=== PATIENT | female | born 1945 | race Caucasian/White ===

== ENCOUNTER → 2016-07-31 | Outpatient (CLI) | payer BC ==
[~2016-07-31] MED LIST: ASCO500C43 PO; ASPI81TA28 PO; CALC600T9 PO; HYDR0.5T PO; LISI-461 PO; MULT-190 PO; MULT-506 PO; OMEG10007 PO; OXYM0.0592 NAE; PRD/1 PO; VITA400C15 PO
== END | disposition home or self-care (01) ==
LOC: C.PATHSPEC 13:48
PROVIDERS: ATTEND Dermatology
DX: C44.91 Basal cell carcinoma of skin, unspecified (principal); L91.8 Other hypertrophic disorders of the skin

== ENCOUNTER → 2016-08-11 | Outpatient (CLI) | payer BC ==
--- NOTE | 2016-08-12 16:37 | MAMMOGRAPHY REPORT ---
BILATERAL DIGITAL SCREENING MAMMOGRAM TOMOSYNTHESIS WITH CAD: 08/11/2016 CLINICAL HISTORY: Routine screening examination. Personal history of right breast cancer status pos t treatment. TECHNIQUE: Breast tomosynthesis in addition to standard 2D mammography was performed. Current study was also evaluated with a Computer Aided Detection (CAD) system. COMPARISON: Comparison is made to exams dated: 08/09/2015 mammogram, 08/08/2014 mammogram, 06/28/2012 mammogram, 06/25/2011 mammogram, 06/24/2010 mammogram, and 06/20/2009 mammogram - [facility]. BREAST COMPOSITION: There are scattered areas of fibroglandular density in both breasts. FINDINGS: There is asymmetry of the size of the breasts, left greater than right, likely secondary t o previous treatment within the right breast. There is expected architectural distortion with surgi mary clips and skin irregularity in the 6:00 posterior right breast, at the site of prior lumpectomy. There are stable intramammary lymph nodes in each upper outer quadrant. Scattered benign coarse c alcifications and punctate microcalcifications. No new suspicious mass, architectural distortion or cluster of microcalcifications is seen. IMPRESSION: ACR BI-RADS CATEGORY 1: NEGATIVE There is no mammographic evidence of malignancy. A 1 year screening mammogram is recommended. The p atient will receive written notification of the results. Approximately 10% of breast cancers are not detected with mammography. A negative mammographic repor t should not delay biopsy if a clinically suggestive mass is present. Prisca Ellsworth M.D. ay/:08/12/2016 15:47:20 Research Coordinator: Laure JOHNSON(David)(Todd), [facility] letter sent: Normal 1/2 BI-RADS Code: ACR BI-RADS Category 1: Negative
== END | disposition home or self-care (01) ==
LOC: C.MAMM 09:49
PROVIDERS: ATTEND Family Medicine
DX: Z12.31 Encounter for screening mammogram for malignant neoplasm of breast (principal)

== ENCOUNTER → 2016-09-26 | Outpatient (CLI) | payer BC | END | disposition home or self-care (01) | LOC: C.LABBC 09:52 | PROVIDERS: ATTEND Nurse Practitioner Family | DX: N39.0 Urinary tract infection, site not specified (principal) ==

== ENCOUNTER → 2016-10-24 | Outpatient (CLI) | payer BC | END | disposition home or self-care (01) | LOC: C.LAB 09:24 | PROVIDERS: ATTEND Nurse Practitioner Family | DX: N39.0 Urinary tract infection, site not specified (principal) ==

== ENCOUNTER → 2016-12-22 | Day surgery (SDC) | payer BC ==
[2016-12-12 09:19] VITALS: Ht 149.9 cm; Wt 65.9 kg
[~2016-12-22] VITALS: Ht 149.9 cm; Wt 65.9 kg
[~2016-12-22] MED LIST changes: -ASCO500C43 PO; -HYDR0.5T PO; -PRD/1 PO; +SODIUM CHLORIDE 0.9% 500ML 500 ML IV ONE
--- NOTE | 2016-12-22 10:22 | Endo History and Physical ---
History & Physical Date of Service: Dec 22, 2016. Chief Complaint: Screening Referring Physician: Nadir Perez History of Present Illness 71 yo CF who presents for screening colonoscopy. Past Surgical History Hx Cardiac Surgery: No Hx Internal Defibrillator: No Hx Pacemaker: No Hx Abdominal Surgery: Yes (JORDI, HERNIA X 2) Hx of Implantable Prosthesis: No Hx Post-Op Nausea and Vomiting: No Hx Cancer Surgery: Yes (RT LUMPECTOMY) Hx Thoracic Surgery: No Hx Orthopedic: Yes (RT RCR, RT TIBIA FX REPAIR) Hx Urinary Tract Surgery: No Family History None Social History Smoking Status: Former Smoker Hx Substance Use: No Hx Alcohol Use: Yes (4 GLASSES OF WINE WEEKLY) Allergies Coded Allergies: Oxytocin (Verified Allergy, Unknown, extreme cramping, 12/22/16) Sulfa Antibiotics (Verified Allergy, Unknown, HIVES, 12/22/16) Current Medications Reported Home Medications Medications Dose Route/Sig Max Daily Dose Days Date Category Ocuvite Preservision (Multivitamins/Minerals) 1 Tab Tab 1 Tab PO QAM 12/12/16 Reported Nasal [place] (Oxymetazoline Hcl) 0.05 % Spr 1 [place] CONSTANCE DAILY PRN 12/12/16 Reported Calcium + D (Calcium Carbonate-Vitamin D) 1 Tab Tab 1 Tab PO HS 04/18/14 Reported [place]-3 (Fish Oil) 1 Ea Cap 1 Cap PO HS 04/18/14 Reported Aspirin Ec (Aspirin) 81 Mg Tab 81 Mg PO HS 04/18/14 Reported Vitamin E (va-Uhmbc-Uosdfzkfaf Acetate) 400 Inter.unit Cap 400 Inter.unit PO QAM 04/18/14 Reported Multivitamin (Multivitamins) Tab 1 Tab PO QAM 04/18/14 Reported Zestril (Lisinopril) 10 Mg Tab 10 Mg PO QAM 04/18/14 Reported Vital Signs Weight (Kilograms): 65.91 Height (Feet): 4 Height (Inches): 11 Date Time Temp Pulse Resp B/P (MAP) Pulse Ox O2 Delivery O2 Flow Rate FiO2 12/22/16 10:11 37.0 80 20 142/73 (96) 96 Room Air Physical Exam General Appearance: WD/WN, no apparent distress Respiratory/Chest: Auscultation: breath sounds normal Cardiovascular: Heart Auscultation: RRR Abdomen: Bowel Sounds: normal Inspection & Palpation: soft, non-distended, no tenderness, guarding & rebound Assessment and Plan Assessment: 71 yo CF who presents for screening colonoscopy. Plan: Proceed with colonoscopy.
--- NOTE | 2016-12-22 11:03 | GI REPORT ---
Procedure Date: 12/22/2016 10:35 AM Procedure: Colonoscopy Indications: Screening for colorectal malignant neoplasm Medicines: Monitored Anesthesia Care Complications: No immediate complications. Estimated Blood Loss: Estimated blood loss: none. Procedure: Pre-Anesthesia Assessment: - Prior to the procedure, a History and Physical was performed, and patient medications and allergies were reviewed. The patient's tolerance of previous anesthesia was also reviewed. The risks and benefits of the procedure and the sedation options and risks were discussed with the patient. All questions were answered, and informed consent was obtained. Prior Anticoagulants: The patient has taken aspirin, last dose was 2 days prior to procedure. ASA Grade Assessment: II - A patient with mild systemic disease. After reviewing the risks and benefits, the patient was deemed in satisfactory condition to undergo the procedure. After I obtained informed consent, the scope was passed under direct vision. Throughout the procedure, the patient's blood pressure, pulse, and oxygen saturations were monitored continuously. The scope was introduced through the anus and advanced to the terminal ileum. The colonoscopy was performed without difficulty. The patient tolerated the procedure well. The quality of the bowel preparation was good. The terminal ileum, ileocecal valve, appendiceal orifice, and rectum were photographed. Findings: A 5 mm polyp was found in the cecum. The polyp was sessile. The polyp was removed with a hot snare. Resection and retrieval were complete. Scattered small and large-mouthed diverticula were found in the entire colon. Non-bleeding internal hemorrhoids were found during retroflexion. The hemorrhoids were small. Impression: - One 5 mm polyp in the cecum, removed with a hot snare. Resected and retrieved. - Diverticulosis in the entire examined colon. - Non-bleeding internal hemorrhoids. Recommendation: - Resume previous diet. - Continue present medications. - Repeat colonoscopy for surveillance based on pathology results. - Return to primary care physician as previously scheduled. Andrea Gordon DO 12/22/2016 11:03:06 AM This report has been signed electronically. Note Initiated On: 12/22/2016 10:35 AM I attest to the content of the Intraoperative Record and orders documented therein, exceptions below
--- NOTE | 2016-12-22 11:14 | Discharge Instructions ---
Endoscopy Patient Instructions Date / Procedure(s) Performed Dec 22, 2016. Colonoscopy Allergy Information Coded Allergies: Oxytocin (Verified Allergy, Unknown, extreme cramping, 12/22/16) Sulfa Antibiotics (Verified Allergy, Unknown, HIVES, 12/22/16) Discharge Date / Findings Dec 22, 2016. Colon polyp Diverticulosis Internal hemorrhoids Medication Instructions Stopped Medication(s): Aspirin stopped 12/20/16 OK to resume all medications today as prescribed Medications Dose Route/Sig Max Daily Dose Days Date Category Ocuvite Preservision (Multivitamins/Minerals) 1 Tab Tab 1 Tab PO QAM 12/12/16 Reported Nasal [place] (Oxymetazoline Hcl) 0.05 % Spr 1 [place] CONSTANCE DAILY PRN 12/12/16 Reported Calcium + D (Calcium Carbonate-Vitamin D) 1 Tab Tab 1 Tab PO HS 04/18/14 Reported [place]-3 (Fish Oil) 1 Ea Cap 1 Cap PO HS 04/18/14 Reported Aspirin Ec (Aspirin) 81 Mg Tab 81 Mg PO HS 04/18/14 Reported Vitamin E (uc-Sqrmy-Oebbvaytiz Acetate) 400 Inter.unit Cap 400 Inter.unit PO QAM 04/18/14 Reported Multivitamin (Multivitamins) Tab 1 Tab PO QAM 04/18/14 Reported Zestril (Lisinopril) 10 Mg Tab 10 Mg PO QAM 04/18/14 Reported Provider Instructions Activity Restrictions - No exercising or heavy lifting for 24 hours. - Do not drink alcohol the day of the procedure. - Do not drive a car or operate machinery until the day after the procedure. - Do not make any important decisions or sign important papers in 24 hours after the procedure. Following Day: - Return to full activity which may include returning to work/school. Diet Start your diet with liquids and light foods (jello, soup, juice, toast). Then eat your usual diet if not nauseated. Treatment For Common After Affects For mild abdominal pain, bloating, or excessive gas: - Rest - Eat lightly - Lie on right side Follow-Up Information Follow-up with Nadir Perez as scheduled Anesthesia Information What You Should Know You have had a procedure that required some medicine to reduce anxiety and discomfort. This treatment is called moderate sedation. After receiving the treatment, you may be sleepy, but you will be able to breathe on your own. The effects of the treatment may last for several hours. Follow these instructions along with Activity/Diet recommendations noted above: * Do NOT do anything where dizziness or clumsiness would be dangerous. * Rest quietly at home today, then you can be up and about tomorrow. * Have a responsible person stay with you the rest of today. * You may have had an I.V. today. If so, you may take the dressing off later today. Recommendations Call your doctor if: * Trouble breathing * Continuous vomiting for more than 24 hours * Temperature above 101 degrees * Severe abdominal pain or bloating * Pain not relieved by pain medicine ordered * There is increased drainage or redness from any incision * A large amount of rectal bleeding greater than 2-3 tablespoons. (If you had a polyp/s removed or have hemorrhoids, a small amount of blood - from the rectum is to be expected.) * You have any unanswered questions or concerns. IN THE EVENT OF A SERIOUS EMERGENCY, GO TO THE NEAREST EMERGENCY ROOM Your discharge instructions were prepared by provider Andrea Gordon. Patient Instructions Signature Page Yoanna Cardona Patient (or Guardian) Signature/Date: I have read and understand the instructions given to me by my caregivers. Caregiver/RN/Doctor Signature/Date: The above-named patient and/or guardian has received patient instructions on this date. + Original Patient Signature Page (only) stays with chart. Please make copy for patient.
--- NOTE | 2016-12-22 11:26 | Anesthesiology Progress Note ---
Anesthesia Post Op Note Date & Time Dec 22, 2016 at 11:26 Vital Signs Pain Intensity: 0 Vital Signs Past 12 Hours Date Time Temp Pulse Resp B/P (MAP) Pulse Ox O2 Delivery O2 Flow Rate FiO2 12/22/16 11:18 63 20 95/59 (71) 97 Room Air 12/22/16 11:04 63 20 111/62 (78) 97 Room Air 12/22/16 10:11 37.0 80 20 142/73 (96) 96 Room Air Notes Mental Status: alert / awake / arousable, participated in evaluation Pt Amnestic to Procedure: Yes Nausea / Vomiting: adequately controlled Pain: adequately controlled Airway Patency, RR, SpO2: stable & adequate BP & HR: stable & adequate Hydration State: stable & adequate Anesthetic Complications: no major complications apparent
[2016-12-22 11:41] VITALS: BP 114/67; PULSE 64; O2SAT 96
== END | disposition home or self-care (01) ==
LOC: C.GI 09:50
PROVIDERS: ATTEND Internal Medicine
DX: Z12.11 Encounter for screening for malignant neoplasm of colon (principal); D12.0 Benign neoplasm of cecum; K57.30 Diverticulosis of large intestine without perforation or abscess without bleeding; K64.8 Other hemorrhoids; I10 Essential (primary) hypertension; Z68.29 Body mass index [BMI] 29.0-29.9, adult; Z85.3 Personal history of malignant neoplasm of breast; Z87.891 Personal history of nicotine dependence; Z98.41 Cataract extraction status, right eye; Z98.42 Cataract extraction status, left eye; Z98.890 Other specified postprocedural states; Z88.2 Allergy status to sulfonamides

== ENCOUNTER → 2017-06-08 | Outpatient (CLI) | payer BC ==
[~2017-06-08] MED LIST changes: -SODIUM CHLORIDE 0.9% 500ML 500 ML IV ONE
[2017-06-08 11:06] LABS: BASO % 0.7 %; BASO ABS # 0.04 K/uL (0-0.2); COMPLETE YES; EOS % 2.9 %; HEMATOCRIT 38.8 % (37-47); IG% 0.2 %; LYMPH % 45.5 %; LYMPH ABS # 2.49 K/uL (1.2-3.4); MEAN CELL VOLUME 98.7 fL (80-100); MEAN CORPUSCULAR HEMOGLOBIN 32.8 pg (25-34); MEAN CORPUSCULAR HGB CONC 33.2 g/dl (32-36); MEAN PLATELET VOLUME 12.1 fL (7.4-10.4); MONO % 6.8 %; NEUT % 43.9 %; PLATELET COUNT 159 K/uL (130-400); RED BLOOD COUNT 3.93 M/uL (4.2-5.4); WHITE BLOOD COUNT 5.47 K/uL (4.8-10.8)
[2017-06-08 11:29] LABS: ALT/SGPT 40 U/L (12-78); AST/SGOT 23 U/L (15-37); BLOOD UREA NITROGEN 15 mg/dl (7-18); BUN/CREATININE RATIO 22.4 (10-20); CARBON DIOXIDE 28 mmol/L (21-32); CHLORIDE 101 mmol/L (98-107); CREATININE 0.66 mg/dl (0.60-1.20); GLUCOSE 103 mg/dl (70-99); MAGNESIUM 2.1 mg/dl (1.8-2.4); POTASSIUM 4.2 mmol/L (3.5-5.1); SODIUM 135 mmol/L (136-145)
[2017-06-08 11:38] LABS: ALB/GLOB RATIO 0.7 (0.9-2); ALKALINE PHOSPHATASE 81 U/L (45-117); CHOLESTEROL 163 mg/dl (0-200); CHOLESTEROL/HDL RATIO 3.5; HDL CHOLESTEROL 47 mg/dl; LDL CHOLESTEROL CALCULATED 85 mg/dl; TRIGLYCERIDES 153 mg/dl (0-150); VERY LOW DENSITY LIPOPROT CALC 31 mg/dl
== END | disposition home or self-care (01) ==
LOC: C.LABBC 08:31
PROVIDERS: ATTEND Nurse Practitioner Family
DX: E06.3 Autoimmune thyroiditis (principal); I10 Essential (primary) hypertension; Z13.220 Encounter for screening for lipoid disorders; Z13.1 Encounter for screening for diabetes mellitus

== ENCOUNTER → 2017-08-17 | Outpatient (CLI) | payer BC ==
--- NOTE | 2017-08-18 13:28 | MAMMOGRAPHY REPORT ---
BILATERAL DIGITAL SCREENING MAMMOGRAM TOMOSYNTHESIS WITH CAD: 08/17/2017 CLINICAL HISTORY: Asymptomatic. Personal history of breast cancer. TECHNIQUE: Breast tomosynthesis in addition to standard 2D mammography was performed. Current study was also evaluated with a Computer Aided Detection (CAD) system. COMPARISON: Comparison is made to exams dated: 08/11/2016 mammogram, 08/09/2015 mammogram, 08/08/2014 m ammogram, 06/29/2013 mammogram, 06/28/2012 mammogram, and 06/25/2011 mammogram - [facility]. BREAST COMPOSITION: There are scattered areas of fibroglandular density in both breasts. FINDINGS: There are stable surgical clips in the lower inner posterior right breast, at the site of p rior surgery. Stable benign reniform circumscribed masses with central lucent notches in each upper outer quadrant, and a stable benign-appearing lobulated mass with associated coarsening calcification in the upper outer far posterior left breast, that is unchanged in size dating back to at least 09/2007. No new suspicious mass, architectural distortion or cluster of microcalcifications is seen. IMPRESSION: ACR BI-RADS CATEGORY 1: NEGATIVE There is no mammographic evidence of malignancy. A 1 year screening mammogram is recommended. The pa tient will receive written notification of the results. Approximately 10% of breast cancers are not detected with mammography. A negative mammographic report should not delay biopsy if a clinically suggestive mass is present. Prisca Ellsworth M.D. ay/:08/17/2017 16:39:29 Ham Stripper: Lurdes JOHNSON(R)(M), [facility] letter sent: Normal 1/2 BI-RADS Code: ACR BI-RADS Category 1: Negative
== END | disposition home or self-care (01) ==
LOC: C.MAMM 08:01
PROVIDERS: ATTEND Nurse Practitioner Family
DX: Z12.31 Encounter for screening mammogram for malignant neoplasm of breast (principal); Z85.3 Personal history of malignant neoplasm of breast

== ENCOUNTER 2024-03-05 14:49 | Inpatient (IN) ==
--- NOTE | 2024-03-05 15:43 | XRay Report ---
SINGLE VIEW CHEST CLINICAL HISTORY: Sepsis FINDINGS: A PA chest radiograph is compared to study dated 03/03/2024. Correlation is made with PET/CT dated 11/14/2023. The heart is mildly enlarged noting atherosclerotic calcification of the thoracic ao rta. The pulmonary vasculature is noncongested. Emphysema and chronic interstitial thickening similar to previous. Fibrotic change is again seen at the right apex. Perihilar airspace consolidation in th e right lung has increased from 03/03/2024 and likely represents pneumonia. No pleural effusion or pne umothorax is seen. The skeletal structures are osteopenic. The bony thorax is grossly intact. Surgica l clips project over the right lower chest. IMPRESSION: 1. Cardiomegaly and emphysema without radiographic evidence of congestive failure. 2. Increasing airspace consolidation in the right lung as compared to 03/03/2024. This likely represen ts pneumonia. Radiographic follow-up to resolution is recommended. ACT 112: Negative or not required by law. Electronically signed by: Jonathan Dolan M.D. 03/05/2024 3:42 PM
[2024-03-05 15:45] LABS: INR 1.2 (0.9-1.1); Partial Thromboplastin Time 28 Seconds (21-31); Prothrombin Time 12.4 Seconds (9.0-12.0)
[2024-03-05 15:53] LABS: Albumin Globulin Ratio 0.9 (0.9-2); Albumin Level 3.5 gm/dl (3.4-5.0); Bilirubin,Total 0.8 mg/dl (0.2-1.0); Calcium 8.8 mg/dl (8.6-10.3); Creatinine Clr Calc Pharmacy 61.9 ml/min; Est GFR (African American) 99.9 ml/min; Est GFR (Non-African American) 86.2 ml/min; Globulin 3.9 gm/dl (2.5-4.0); Magnesium 1.9 mg/dl (1.7-2.4); Total Protein 7.4 gm/dl (6.0-8.3)
[2024-03-05 15:58] LABS: Procalcitonin 0.22 ng/ml (0-0.5)
[2024-03-05 15:59] LABS: Troponin I High Sensitivity 6.4 pg/ml (0-14)
[2024-03-05 16:07] LABS: ALC (manual) 0.99 K/uL (1.2-3.4); ANC (manual) 3.94 K/uL (1.4-6.5); Anisocytosis Present; Basophils # (manual) 0.17 K/uL (0-0.2); Basophils % (manual) 3 %; Blast # (manual) 0.12 K/uL (0-0); Blast Cells % (manual) 2 %; Eosinophils # (manual) 0.12 K/uL (0-0.50); Eosinophils % (manual) 2 %; Hematocrit (blood only) 25.4 % (37.0-47.0); Hemoglobin 8.2 g/dl (12.0-16.0); Lymphocytes # (manual) 0.99 K/uL (1.2-3.4); Lymphocytes % (manual) 17 %; Mean Corpuscular Hemoglobin 31.9 pg (25.0-34.0); Mean Corpuscular Hgb Conc 32.3 g/dL (32.0-36.0); Mean Corpuscular Volume 98.8 fL (80.0-100.0); Monocytes # (manual) 0.46 K/uL (0.11-0.59); Monocytes % (manual) 8 %; Neutrophils # (manual) 3.94 K/uL (1.40-6.50); Neutrophils % (manual) 68 %; Platelet Count 181 K/uL (130-400); Polychromasia 1+; RDW Coefficient of Variation 21.4 % (11.5-14.5); Red Blood Count 2.57 M/uL (4.20-5.40)
--- NOTE | 2024-03-05 16:31 | Emergency Department Note ---
Impression & Plan Pneumonia, MDS (myelodysplastic syndrome), Hypoxia ED Provider Note NAME: URSULA ANDERSON AGE: 78 SEX: F : 1945 ARRIVES VIA: Walk-In INFORMANT: Patient, ED PROVIDER(S): Darell Garland MD CHIEF COMPLAINT: Pneumonia HPI: This is a 78-year-old female with history of multiple myeloma presenting for pneumonia. Patient was talking to her oncology physician this week and diagnosed with pneumonia on her chest x-ray. She is sinus with UTI at the same time. Given antibiotics for this in the outpatient setting, Flagyl. Patient notes that she had a fever for about 1 week. She is taken Tylenol 3 times daily, 1000 mg. Otherwise she has no fevers came back yesterday and chills as well. She notes cough, congestion, shortness of breath. She notes she is on active chemotherapy. She notes no urinary symptoms. ROS: See above HPI for pertinent positives & negatives. A total of 10 systems reviewed and were otherwise negative. PAST MEDICAL HISTORY: See Below PAST SURGICAL HISTORY: See Below FAMILY HISTORY: See Below SOCIAL HISTORY: See Below HOME MEDICATIONS: See Below ALLERGIES: See Below VITALS: See Below PHYSICAL EXAMINATION: General: resting comfortably in no acute distress Head: Normocephalic and atraumatic Eyes: Normal inspection, extraocular muscles intact Ear, nose, throat: Normal external exam Neck: Normal range of motion Respiratory: Crackles at the right Cardiovascular: Regular rate/rhythm, no murmur GI: soft, nontender, no guarding or rebound Extremities: nontender, moves all extremities Neuro: The patient awake and alert, appropriately conversive, no focal deficits, symmetric faces Skin: Warm, dry, and intact MEDICAL DECISION MAKING: This is 78-year-old female presenting for pneumonia. Patient was diagnosed with pneumonia this week and on antibiotics. She is on chemotherapy and now having worsening symptoms. Repeat fevers. -Blood work is reviewed showing no leukocytosis, anemia to 8.2. Otherwise slight hyponatremia/hypokalemia. No transaminitis. Pro-Vikas 0.22. -Currently pending upper respiratory panel -Chest x-ray shows right focal opacity, worsening from previous, upon my independent interpretation -Patient will require admission due to her immunocompromise status, worsening pneumonia, outpatient antibiotic failure -Patient is also hypoxic requiring oxygenation -Care discussed with Isai Ragland PA-C for admission Differential diagnosis: Pneumonia, PE, sepsis, GI ER treatment provided: See below Independent History obtained from: Diagnostics interpreted by me: ECG: ECG independently interpreted by me with normal sinus rhythm, rate of 95, normal axis, normal AR, normal QRS, normal QTc, no ST segment elevations consistent with STEMI criteria Cardiac Monitoring: An order was placed for continuous cardiac monitoring. The monitor shows a rate of 86 with sinus rhythm. Laboratory studies: As stated above and show below. Imaging studies: See below. Past Med/Surg History Problem List (Updated 03/05/24 @ 22:18 by Darell Garland MD) Hypoxia (Acute) Pneumonia (Acute) Sepsis MDS (myelodysplastic syndrome) (Acute) Monoclonal gammopathy of unknown significance (MGUS) Anemia Benign essential hypertension (Acute) Generalized osteoarthrosis, unspecified site (Acute) Medical History (Updated 03/05/24 @ 22:18 by Darell Garland MD) Urinary tract infection Hx of breast cancer Surgical History S/P hernia surgery H/O breast surgery Family History Mother Breast cancer Father Myocardial infarction Denies family history of Ovarian cancer Prostate cancer Colorectal cancer Social History Smoking Status: Former smoker Tobacco Type: Cigarettes Age Started Using Tobacco: 19; Age Quit Using Tobacco: 39; packs per day: 1; Cigarettes Per Day: 20; Second Hand Exposure: No; Do You Dip or Chew Tobacco: No; Hx Alcohol Use: No Hx Substance Use: No Preferred Language: Khmer Communication Ability: Effective Visual Impairment: Partially Limited Hearing Ability: Normal Eligibility Counselor Required: No Beliefs That Will Affect Care: None marital status: Current Living Situation: Spouse current occupational status: retired How many Children do You have: 2 Feels Safe at Home: Yes Childhood Exposure to Second-Hand Smoke: Yes Diet: regular caffeine: Yes during the past year weight has: remained stable Dental Care, Regularly: Yes Physical Activity Frequency: Daily Seatbelt Use: always Sunscreen Use: Yes Assistive Devices: Glasses Allergies Allergies Allergy/AdvReac Type Severity Reaction Status Date / Time oxytocin Allergy Unknown extreme Verified 03/05/24 18:40 cramping Sulfa (Sulfonamide Allergy Unknown HIVES Verified 03/05/24 18:40 Antibiotics) sulfamethoxazole Allergy Hives Verified 03/05/24 18:40 Influenza Virus Vaccines AdvReac PMR Verified 03/05/24 18:40 Home Meds Home Medications Medication Instructions Recorded Confirmed ascorbic acid (vitamin C) 500 mg 500 mg PO DAILY 12/31/23 03/05/24 tablet (Vitamin C) calcium carbonate 600 mg-vitamin 1 tab PO DAILY 12/31/23 03/05/24 D3 20 mcg (800 unit) chewable tablet (Caltrate 600 plus D) reblelou-rzne-onxo 8 mg-folic 400 1 tab PO DAILY 12/31/23 03/05/24 mcg-K 50 mcg-lutein 300 mcg tablet (Centrum Silver Women) aspirin 81 mg tablet,delayed 81 mg PO DAILY 03/05/24 03/05/24 release cyanocobalamin (vitamin B-12) 1,000 mcg PO DAILY 03/05/24 03/05/24 1,000 mcg tablet (Vitamin B-12) dexamethasone 4 mg tablet See Rx Instructions .Route .COMPLEX 03/05/24 03/05/24 levofloxacin 750 mg tablet 750 mg PO DAILY 03/05/24 03/05/24 mometasone 50 mcg/actuation nasal 2 spray intranasal DAILY PRN 03/05/24 03/05/24 spray Congestion omega 7-lvm-zde-fish oil 1,000 mg 1 cap PO DAILY 03/05/24 03/05/24 (120 mg-180 mg) capsule (Fish Oil) ondansetron 8 mg disintegrating 8 mg PO Q8H PRN Nausea And Vomiting 03/05/24 03/05/24 tablet prochlorperazine maleate 10 mg 10 mg PO Q6H PRN Nausea And 03/05/24 03/05/24 tablet Vomiting vitamin A-vitamin C-vit E-min 1 tab PO DAILY 03/05/24 03/05/24 tablet vitamin E 268 mg (400 unit) capsule 268 mg PO DAILY 03/05/24 03/05/24 Previous Rx's Medication Instructions Recorded lisinopril 10 mg tablet 10 mg PO DAILY #90 tabs 02/04/24 Results & Data (ED) Vital Signs Vital Signs - 24 hr 03/05/24 14:54 03/05/24 15:45 03/05/24 15:51 Temperature 36.7 C Temperature Source Temporal Artery Scan Pulse Rate 95 H Pulse Rate [Apical] 90 Respiratory Rate 17 21 Respiratory Effort / Characteristics Non-Labored Spontaneous Non-Labored Respiratory Depth Normal Normal Respiratory Pattern Regular Blood Pressure 144/65 H Blood Pressure [Left Arm] 138/72 138/72 Blood Pressure Mean 91 Blood Pressure Mean [Left Arm] 94 94 Pulse Oximetry 93 89 L 98 Oxygen Delivery Method Room Air Room Air Nasal Cannula Oxygen Flow Rate 2 Sepsis Recent Fever Within 48 Hours Yes Sepsis New/Unexplained Change in Mental Status No Sepsis Action Taken by Nursing No Action Required Oxygen Flow Rate - Titration Pulse Oximetry Post Tiitration 03/05/24 16:54 03/05/24 17:28 03/05/24 18:25 Temperature 38.2 C H Temperature Source Oral Pulse Rate 92 H Pulse Rate [Apical] 101 H Respiratory Rate 21 Respiratory Effort / Characteristics Non-Labored Respiratory Depth Normal Respiratory Pattern Regular Blood Pressure Blood Pressure [Left Arm] 127/74 Blood Pressure Mean Blood Pressure Mean [Left Arm] 91 Pulse Oximetry 89 L 95 Oxygen Delivery Method Nasal Cannula Oxygen Flow Rate 0 2 Sepsis Recent Fever Within 48 Hours Sepsis New/Unexplained Change in Mental Status Sepsis Action Taken by Nursing Oxygen Flow Rate - Titration 2 Pulse Oximetry Post Tiitration 98 Laboratory Data 03/05/24 15:10 03/05/24 15:10 Lab Results 03/05/24 03/05/24 03/05/24 Range/Units 15:10 17:46 17:56 WBC 5.80 (4.8-10.8) K/ul RBC 2.57 L (4.20-5.40) M/uL Hgb 8.2 L (12.0-16.0) g/dl Hct 25.4 L (37.0-47.0) % MCV 98.8 (80.0-100.0) fL MCH 31.9 (25.0-34.0) pg MCHC 32.3 (32.0-36.0) g/dL RDW Std Deviation 75.0 H (36.4-46.3) fL RDW Coeff of Juan 21.4 H (11.5-14.5) % Plt Count 181 (130-400) K/uL Neutrophils % (Manual) 68 % Lymphocytes % (Manual) 17 % Monocytes % (Manual) 8 % Eosinophils % (Manual) 2 % Basophils % (Manual) 3 % Blast Cells % (Manual) 2 % Neutrophils # (Manual) 3.94 (1.40-6.50) K/uL Total Absolute Neuts 3.94 (1.4-6.5) K/uL Lymphocytes # (Manual) 0.99 L (1.2-3.4) K/uL Total Abs Lymphocytes 0.99 L (1.2-3.4) K/uL Monocytes # (Manual) 0.46 (0.11-0.59) K/uL Eosinophils # (Manual) 0.12 (0-0.50) K/uL Basophils # (Manual) 0.17 (0-0.2) K/uL Blast Cells # (Man) 0.12 H (0-0) K/uL Polychromasia 1+ Anisocytosis Present PT 12.4 H (9.0-12.0) Seconds INR 1.2 H (0.9-1.1) APTT 28 (21-31) Seconds PTT Ratio 1.0 Sodium 132 L (136-145) mmol/L Potassium 4.0 (3.5-5.1) mmol/L Chloride 96 L (98-107) mmol/L Carbon Dioxide 27 (21-32) mmol/L Anion Gap 9 (3-11) BUN 14 (6-23) mg/dl Creatinine 0.61 (0.6-1.2) mg/dl Est Cr Clr Drug Dosing 61.9 ml/min Est GFR ( Amer) 99.9 ml/min Est GFR (Non-Af Amer) 86.2 ml/min BUN/Creatinine Ratio 23.0 H (10-20) Glucose 118 H (70-99(Fasting)) mg/dl Lactate 2.0 (0.4-2.0) mmol/L Calcium 8.8 (8.6-10.3) mg/dl Magnesium 1.9 (1.7-2.4) mg/dl Total Bilirubin 0.8 (0.2-1.0) mg/dl AST 18 (13-39) U/L ALT 33 (7-52) U/L Alkaline Phosphatase 68 (34-104) U/L Troponin I High Sens 6.4 (0-14) pg/ml Total Protein 7.4 (6.0-8.3) gm/dl Albumin 3.5 (3.4-5.0) gm/dl Globulin 3.9 (2.5-4.0) gm/dl Albumin/Globulin Ratio 0.9 (0.9-2) Procalcitonin 0.22 (0-0.5) ng/ml Acetaminophen < 3 L (10-30) ug/ml Adenovirus (PCR) Not Detected (NotDetected) Anaplasma Smear See Comment Babesia Smear See Comment B. pertussis DNA (PCR) Not Detected (NotDetected) B.parapertussis DNA PCR Not Detected (NotDetected) Lyme Disease Screen Negative (Negative) C. pneumoniae DNA (PCR) Not Detected (NotDetected) Coronavirus OC43 (PCR) Not Detected (NotDetected) Coronavirus HKU1 (PCR) Not Detected (NotDetected) Coronavirus 229E (PCR) Not Detected (NotDetected) SARS-CoV-2 (PCR) Not Detected (NotDetected) Coronavirus NL63 (PCR) Not Detected (NotDetected) Human Metapneumovir PCR Not Detected (NotDetected) Influenza Type A (PCR) Not Detected (NotDetected) Influenza Type B (PCR) Not Detected (NotDetected) M. pneumoniae (PCR) Not Detected (NotDetected) Parainfluenza 1 (PCR) Not Detected (NotDetected) Parainfluenza 2 (PCR) Not Detected (NotDetected) Parainfluenza 3 (PCR) Not Detected (NotDetected) Parainfluenza 4 (PCR) Not Detected (NotDetected) RSV (PCR) Not Detected (NotDetected) Entero/Rhino (PCR) Not Detected (NotDetected) Administered Medications Acetaminophen (Acetaminophen 325 Mg Tab) 650 mg PO Q6H PRN PRN Reason: pain(1-4),headache,fever Stop: 04/04/24 18:44 Last Admin: 03/05/24 19:25 Dose: 650 mg Documented By: TOMMY Enoxaparin Sodium (Enoxaparin Inj 40 Mg/0.4 Ml Syr) 40 mg SQ Q24H ARJUN Stop: 04/04/24 21:59 Last Admin: 03/05/24 21:42 Dose: 40 mg Documented By: ANDREA Discontinued Medications Ceftriaxone Sodium (Rocephin) 2,000 mg in 50 mls @ 100 mls/hr IV NOW STA Stop: 03/05/24 18:17 Last Infusion: 03/05/24 19:00 Dose: Infused Documented By: Admin: 03/05/24 18:22 Dose: 100 mls/hr Documented By: SALVADOR Doxycycline Hyclate 100 mg/ (Dextrose) 100 mls @ 50 mls/hr IV NOW STA Stop: 03/05/24 19:47 Last Infusion: 03/05/24 21:02 Dose: Infused Documented By: Admin: 03/05/24 19:01 Dose: 50 mls/hr Documented By: TOMMY Lactated Ringer's (Lr) 1,000 mls @ 999 mls/hr IV .Q1H1M ONE Stop: 03/05/24 20:11 Last Infusion: 03/05/24 21:02 Dose: Infused Documented By: Admin: 03/05/24 20:04 Dose: 999 mls/hr Documented By: TOMMY Imaging Data Radiologist's Impression: Chest X-Ray 03/05/24 15:00 SINGLE VIEW CHEST CLINICAL HISTORY: Sepsis FINDINGS: A PA chest radiograph is compared to study dated 03/03/2024. Correlation is made with PET/CT dated 11/14/2023. The heart is mildly enlarged noting atherosclerotic calcification of the thoracic aorta. The pulmonary vasculature is noncongested. Emphysema and chronic interstitial thickening similar to previous. Fibrotic change is again seen at the right apex. Perihilar airspace consolidation in the right lung has increased from 03/03/2024 and likely represents pneumonia. No pleural effusion or pneumothorax is seen. The skeletal structures are osteopenic. The bony thorax is grossly intact. Surgical clips project over the right lower chest. IMPRESSION: 1. Cardiomegaly and emphysema without radiographic evidence of congestive failure. 2. Increasing airspace consolidation in the right lung as compared to 03/03/2024. This likely represents pneumonia. Radiographic follow-up to resolution is recommended. ACT 112: Negative or not required by law. Electronically signed by: Jonathan Dolan M.D. 03/05/2024 3:42 PM Discharge Plan Visit Data Chief Complaint: Fever Stated Complaint: FEVER, DIFFICULTY BREATHING ED Provider: Darell Garland Discharge Problem: Pneumonia, MDS (myelodysplastic syndrome), Hypoxia Patient Disposition: Admitted As Inpatient Discharge Instructions Interventions: ED Discharge Assessment Last Done: 03/05/24 20:33
[2024-03-05] MEDS: cefTRIAXone SODIUM 2,000 MG/50 ML BAG IV STA (18:22)
--- NOTE | 2024-03-05 18:36 | History & Physical Report ---
Date of Service March 05, 2024 Assessment & Plan (1) Sepsis: Plan: Admit to [facility] telemetry on pulse oximetry Currently stable and nontoxic-appearing Presented to the ED with ongoing fevers and progressive generalized weakness and being diagnosed with a right lower lobe pneumonia on outpatient chest x-ray on 03/03/2024 Started on Levaquin on 03/04/2024 confirmed she had 1 dose Patient has been without urinary symptoms urine culture growing lactobacillus species from 03/03/2024 No recent abdominal symptoms or diarrhea Will add tickborne panel due to mildly elevated INR for now Lactate and Pro-Vikas within normal limits, blood cultures were obtained Will give 1 L LR bolus now and reevaluate as she will not require full sepsis bolus due to lactate being within normal limits and remaining hemodynamically stable Status post 1 dose of ceftriaxone and doxycycline in the ED, will continue both for now Will obtain sputum culture with Gram stain Incentive spirometry, flutter therapy, as needed O2 to keep SpO2 at or above 92% SQ Lovenox for DVT prophylaxis Heart healthy diet AM CBC CMP, mag, PT/INR (2) Hypoxia: Plan: Noted to be hypoxic with SpO2 in the high 80s on room air Currently stable on 2 L nasal cannula in no respiratory distress Likely due to her right lower lobe pneumonia, no signs of volume overload Rest of care per sepsis plan (3) Pneumonia: Plan: See sepsis and hypoxia plans (4) MDS (myelodysplastic syndrome): Plan: [facility], currently on both SQ and oral chemotherapy Last scheduled treatment on 03/03/2024 was held due to fevers on arrival Continue to hold oral chemotherapy Will place oncology consult to follow while admitted (5) Benign essential hypertension: Plan: Currently stable Will hold lisinopril for now until we without hypotension with sepsis on arrival Plan Patient was discussed with Dr. Pollock at the time of the admission History of Present Illness Chief Complaint: Fever Primary Care Provider: Nadir Perez III, ALEXEY Yoanna is a 78-year-old female with a past medical history significant for hypertension, multiple myeloma/myelodysplastic syndrome (on D-RVD), breast cancer status postlumpectomy/chemo/radiation in 1996 who presented to the [facility] ED on 03/05/2024 with recurrent fevers after being diagnosed with right lower lobe pneumonia and being started on Levaquin on 03/04/2024. On arrival to the ED she was noted to be tachycardic with heart rate in the 90s, hypoxic with SpO2 in the high 80s on room air, and otherwise stable. Labs were significant for an INR of 1.2, sodium of 132, chloride of 96, Pro-Vikas within normal limits. Chest x-ray was read as cardiomegaly and emphysema with radiographic evidence of congestive failure. Increasing airspace consolidation in the right lung as compared to 03/03/2024. This likely represents pneumonia. Radiographic follow-up to resolution is recommended. Prior to admission the patient was given a dose of ceftriaxone and doxycycline. Of note, patient also had a UA obtained on 03/03/2024 which noted cloudy appearance, 3+ protein, trace ketones, 2+ blood, trace leukocyte Estrace, 11-20 WBC, 11-20 epithelial cells, and 2+ bacteria. Urine culture from 03/03/2024 grew lactobacillus species only. Patient was sitting in bed in no acute distress at time of exam but does appear fatigued, her is bedside. She explains that she was scheduled to have her next round of chemotherapy injections on 03/03/2024 at the [facility]. When she arrived she was found to be febrile so treatment was held and infectious workup was started as explained above. She was prescribed Levaquin and had 1 dose on 03/04/2024. States that over the past 24 hours she has had continued fevers with increased generalized weakness/fatigue. Has also been experiencing progressive shortness of breath with nonproductive cough. Denies chest pain, hemoptysis, abdominal pain, nausea/vomiting, diarrhea, dysuria, hematuria, lower extremity swelling, insect bites, rash, and recent trauma. We discussed CODE STATUS, she is a DNR/DNI and want her to make medical decisions for her if she cannot make them herself. Please refer to Dr. Pollock's attestation for any changes to treatment plan Allergies Allergy/AdvReac Type Severity Reaction Status Date / Time oxytocin Allergy Unknown extreme Verified 03/05/24 18:40 cramping Sulfa (Sulfonamide Allergy Unknown HIVES Verified 03/05/24 18:40 Antibiotics) sulfamethoxazole Allergy Hives Verified 03/05/24 18:40 Influenza Virus Vaccines AdvReac PMR Verified 03/05/24 18:40 Home Medications Medication Instructions Recorded Confirmed Type ascorbic acid (vitamin C) 500 mg 500 mg PO DAILY 12/31/23 03/05/24 History tablet (Vitamin C) calcium carbonate 600 mg-vitamin 1 tab PO DAILY 12/31/23 03/05/24 History D3 20 mcg (800 unit) chewable tablet (Caltrate 600 plus D) [id number]-[id number] 8 mg-folic 400 1 tab PO DAILY 12/31/23 03/05/24 History mcg-K 50 mcg-lutein 300 mcg tablet (Centrum Silver Women) lisinopril 10 mg tablet 10 mg PO DAILY #90 tabs 02/04/24 03/05/24 Rx aspirin 81 mg tablet,delayed 81 mg PO DAILY 03/05/24 03/05/24 History release cyanocobalamin (vitamin B-12) 1,000 mcg PO DAILY 03/05/24 03/05/24 History 1,000 mcg tablet (Vitamin B-12) dexamethasone 4 mg tablet See Rx Instructions .Route .COMPLEX 03/05/24 03/05/24 History levofloxacin 750 mg tablet 750 mg PO DAILY 03/05/24 03/05/24 History mometasone 50 mcg/actuation nasal 2 spray intranasal DAILY PRN 03/05/24 03/05/24 History spray Congestion omega 6-gsr-mzw-fish oil 1,000 mg 1 cap PO DAILY 03/05/24 03/05/24 History (120 mg-180 mg) capsule (Fish Oil) ondansetron 8 mg disintegrating 8 mg PO Q8H PRN Nausea And Vomiting 03/05/24 03/05/24 History tablet prochlorperazine maleate 10 mg 10 mg PO Q6H PRN Nausea And 03/05/24 03/05/24 History tablet Vomiting vitamin A-vitamin C-vit E-min 1 tab PO DAILY 03/05/24 03/05/24 History tablet vitamin E 268 mg (400 unit) capsule 268 mg PO DAILY 03/05/24 03/05/24 History Past Med/Surg History Problem List (Updated 03/05/24 @ 22:18 by Darell Garland MD) Hypoxia (Acute) Pneumonia (Acute) Sepsis MDS (myelodysplastic syndrome) (Acute) Monoclonal gammopathy of unknown significance (MGUS) Anemia Benign essential hypertension (Acute) Generalized osteoarthrosis, unspecified site (Acute) Medical History (Updated 03/05/24 @ 22:18 by Darell Garland MD) Urinary tract infection Hx of breast cancer Surgical History S/P hernia surgery H/O breast surgery Family History Mother Breast cancer Father Myocardial infarction Denies family history of Ovarian cancer Prostate cancer Colorectal cancer Social History Smoking Status: Former smoker Tobacco Type: Cigarettes Age Started Using Tobacco: 19; Age Quit Using Tobacco: 39; packs per day: 1; Cigarettes Per Day: 20; Second Hand Exposure: No; Do You Dip or Chew Tobacco: No; Hx Alcohol Use: No Hx Substance Use: No Preferred Language: Greenlandic Communication Ability: Effective Visual Impairment: Partially Limited Hearing Ability: Normal Air Hammer Operator Required: No Beliefs That Will Affect Care: None marital status: Current Living Situation: Spouse current occupational status: retired How many Children do You have: 2 Feels Safe at Home: Yes Childhood Exposure to Second-Hand Smoke: Yes Diet: regular caffeine: Yes during the past year weight has: remained stable Dental Care, Regularly: Yes Physical Activity Frequency: Daily Seatbelt Use: always Sunscreen Use: Yes Assistive Devices: Glasses Physical Exam Physical Exam: Physical Exam: General: In no acute distress, stated age, ill-appearing but nontoxic appearing HEENT: Normocephalic, atraumatic, no scleral icterus, pupils around round, symmetrical, and reactive to light, dry mucus membranes, trachea midline, no thyromegaly Chest/Pulm: No respiratory distress, symmetrical chest expansion, rhonchi noted in the right lower lobe but otherwise CTA Cardiac: RRR, no murmurs noted Abdomen: Negative for ascites and bruising, normoactive bowel sounds, soft, non-tender to palpation throughout Musculoskeletal: Symmetrical and without signs of acute trauma, upper and lower extremities with full ROM, no atrophy, spasticity, or flaccidity Extremities: Radial, dorsalis pedis, and posterior tibial pulses are intact and symmetrical, no edema noted in the BL LE's Skin: Warm, dry, no rashes , lesions, or scars noted Neuro: Alert and oriented to person, place, month, year, and president, no focal defects, no tremors noted Psych: No acute distress, calm and cooperative during the exam Results & Data Results & Data Vital Signs (Past 12 Hours) Vital Signs Temp Pulse Pulse Resp BP BP Pulse Ox 03/05/24 18:25 38.2 C H 101 H 21 127/74 95 03/05/24 17:28 92 H 03/05/24 16:54 89 L 03/05/24 15:51 138/72 98 03/05/24 15:45 90 21 138/72 89 L 03/05/24 14:54 36.7 C 95 H 17 144/65 H 93 O2 Del Method O2 Flow Rate 03/05/24 18:25 Nasal Cannula 2 03/05/24 17:28 03/05/24 16:54 0 03/05/24 15:51 Nasal Cannula 2 03/05/24 15:45 Room Air 03/05/24 14:54 Room Air Laboratory Results Abnormal lab results 03/05/24 03/05/24 Range/Units 15:10 17:46 RBC 2.57 L (4.20-5.40) M/uL Hgb 8.2 L (12.0-16.0) g/dl Hct 25.4 L (37.0-47.0) % RDW Std Deviation 75.0 H (36.4-46.3) fL RDW Coeff of Juan 21.4 H (11.5-14.5) % Lymphocytes # (Manual) 0.99 L (1.2-3.4) K/uL Total Abs Lymphocytes 0.99 L (1.2-3.4) K/uL Blast Cells # (Man) 0.12 H (0-0) K/uL PT 12.4 H (9.0-12.0) Seconds INR 1.2 H (0.9-1.1) Sodium 132 L (136-145) mmol/L Chloride 96 L (98-107) mmol/L BUN/Creatinine Ratio 23.0 H (10-20) Glucose 118 H (70-99(Fasting)) mg/dl Acetaminophen < 3 L (10-30) ug/ml Diagnostic Findings Chest X-Ray 03/05/24 15:00 SINGLE VIEW CHEST CLINICAL HISTORY: Sepsis FINDINGS: A PA chest radiograph is compared to study dated 03/03/2024. Correlation is made with PET/CT dated 11/14/2023. The heart is mildly enlarged noting atherosclerotic calcification of the thoracic aorta. The pulmonary vasculature is noncongested. Emphysema and chronic interstitial thickening similar to previous. Fibrotic change is again seen at the right apex. Perihilar airspace consolidation in the right lung has increased from 03/03/2024 and likely represents pneumonia. No pleural effusion or pneumothorax is seen. The skeletal structures are osteopenic. The bony thorax is grossly intact. Surgical clips project over the right lower chest. IMPRESSION: 1. Cardiomegaly and emphysema without radiographic evidence of congestive failure. 2. Increasing airspace consolidation in the right lung as compared to 03/03/2024. This likely represents pneumonia. Radiographic follow-up to resolution is recommended. ACT 112: Negative or not required by law. Electronically signed by: Jonathan Dolan M.D. 03/05/2024 3:42 PM Code Status & VTE Plan Code Status DNR/DNI VTE Prophylaxis Plan VTE Prophylaxis will be ordered: Yes Supervising Physician Co-Signing Physician Notes I personally saw and examined the patient. I verified all munguia points and agree with Isai Ragland PA-C with the following exceptions and/or additions: 78 year old female presents to the ER with fever, generalized weakness and worsening right lower lobe pneumonia on CXR despite levofloxacin use O/E A&Ox3, RRR, no murmurs, Chest right basal crackles, no wheezing, Abdo SNT A/P Sepsis/pneumonia/hypoxia - aim O2 sats > 90%, MRSA nasal swab to assess need for MRSA coverage, ceftriaxone + doxycycline. Will defer adding pseudomonas coverage pending clinical course. PG Care Time/CCT Total # of Minutes Spent Total Time Spent with Patient: Total time spent is greater than 50% in coordination of care (as documented) at patient's floor/unit and/or counseling patient: Coding [place] [address] INT INP/OBS CARE 3/75MIN Patient Type Established Medical Decision Making High Complexity Diagnoses Sepsis A41.9 Hypoxia R09.02 Pneumonia J18.9 MDS (myelodysplastic syndrome) D46.9 Benign essential hypertension I10
[2024-03-05 18:54] LABS: Adenovirus PCR Not Detected (NotDetected); Bordetella parapertussis PCR Not Detected (NotDetected); Bordetella pertussis PCR Not Detected (NotDetected); Chlamydia pneumoniae PCR Not Detected (NotDetected); Coronavirus 229E PCR Not Detected (NotDetected); Coronavirus CoV-2 (COVID19)PCR Not Detected (NotDetected); Coronavirus HKU1 PCR Not Detected (NotDetected); Coronavirus NL63 PCR Not Detected (NotDetected); Coronavirus OC43PCR Not Detected (NotDetected); Human Metapneumovirus PCR Not Detected (NotDetected); Influenza A PCR Not Detected (NotDetected); Influenza B PCR Not Detected (NotDetected); Mycoplasma pneumoniae PCR Not Detected (NotDetected); Parainfluenza Virus 1 PCR Not Detected (NotDetected); Parainfluenza Virus 2 PCR Not Detected (NotDetected); Parainfluenza Virus 3 PCR Not Detected (NotDetected); Parainfluenza Virus 4 PCR Not Detected (NotDetected); Respiratory Syncytial VirusPCR Not Detected (NotDetected); Rhinovirus/Enterovirus PCR Not Detected (NotDetected)
[2024-03-05] MEDS: DOXYCYCLINE HYCLATE 100 MG in DEXTROSE 5% MINI-B 100 ML IV STA (19:01)
[2024-03-05] MEDS ORDERED: ONDANSETRON INJ 2 MG/ML 2 ML VIAL IV PRN (19:02)
[2024-03-05] MEDS: ACETAMINOPHEN 325 MG TAB PO PRN (19:25)
[2024-03-05 19:53] LABS: Lyme Screen Rflx Confirmation Negative (Negative)
[2024-03-05] MEDS: LACTATED RINGER'S 1,000 ML IV ONE (20:04)
[2024-03-05] MEDS: ENOXAPARIN INJ 40 MG/0.4 ML SYR SQ SCH (21:42)
[2024-03-06 02:06] LABS: Appearance Urine Clear (Clear); Bacteria Urine Automated None Seen (None Seen); Bilirubin Urine Negative (Negative); Blood Urine Negative (Negative); Cast Urine Automated 0-2 /lpf (0-2); Color Urine Yellow; Epithelial Cell Urine Auto 0-2 /hpf (0-2); Glucose Urine UA Negative (Negative); Ketones Urine Negative (Negative); Leukocyte Esterase Urine Trace (Negative); Nitrite Urine Negative (Negative); Protein Urine Trace (Negative); RBC Urine Automated 0-2 /hpf (0-2); Specific Gravity Urine 1.007 (1.000-1.030); Urobilinogen Urine Negative (Negative); WBC Urine Automated 0-5 /hpf (0-5)
[2024-03-06] MEDS: DOXYCYCLINE HYCLATE 100 MG in DEXTROSE 5% MINI-B 100 ML IV SCH (04:51)
[2024-03-06 06:42] LABS: INR 1.2 (0.9-1.1)
[2024-03-06 07:07] LABS: Anisocytosis Present; Basophils # (auto) 0.01 K/uL (0.00-0.20); Basophils % (auto) 0.2 %; Dohle Bodies 1+; Eosinophils # (auto) 0.24 K/uL (0.00-0.50); Eosinophils % (auto) 4.5 %; Giant Platelets 1+; Hematocrit (blood only) 19.3 % (37.0-47.0); Hemoglobin 6.4 g/dl (12.0-16.0); Hypogranular Neutrophils 1+; Lymphocytes # (auto) 1.34 K/uL (1.20-3.40); Lymphocytes % (auto) 25.3 %; Mean Corpuscular Hemoglobin 32.2 pg (25.0-34.0); Mean Corpuscular Hgb Conc 33.2 g/dL (32.0-36.0); Monocytes # (auto) 0.86 K/uL (0.11-0.59); Monocytes % (auto) 16.3 %; Neutrophils # (auto) 2.84 K/uL (1.40-6.50); Neutrophils % (auto) 53.7 %; Platelet Count 163 K/uL (130-400); Platelet Estimate Normal (Normal); RDW Coefficient of Variation 21.3 % (11.5-14.5); RDW Standard Deviation 73.2 fL (36.4-46.3); Red Blood Count 1.99 M/uL (4.20-5.40); White Blood Count 5.29 K/ul (4.8-10.8)
[2024-03-06] MEDS ORDERED: SODIUM CHLORIDE 0.9% 250 ML IV PRN (07:12)
--- NOTE | 2024-03-06 07:17 | Hospitalist Progress Note ---
Date of Service March 06, 2024 Assessment & Plan (1) Sepsis: (2) Hypoxia: (3) Pneumonia: (4) MDS (myelodysplastic syndrome): (5) Benign essential hypertension: Plan 78-year-old female with a past medical history significant for hypertension, multiple myeloma/myelodysplastic syndrome (on D-RVD), breast cancer status postlumpectomy/chemo/radiation in 1996 who presented to the [facility] ED on 03/05/2024 with recurrent fevers after being diagnosed with right lower lobe pneumonia and being started on Levaquin on 03/04/2024. On arrival to the ED she was noted to be tachycardic with heart rate in the 90s, hypoxic with SpO2 in the high 80s on room air, and otherwise stable. Labs were significant for an INR of 1.2, sodium of 132, chloride of 96, Pro-Vikas within normal limits. Chest x-ray was read as cardiomegaly and emphysema with radiographic evidence of congestive failure. Increasing airspace consolidation in the right lung as compared to 03/03/2024. This likely represents pneumonia. #Sepsis: Currently stable and nontoxic-appearing Presented to the ED with ongoing fevers and progressive generalized weakness and being diagnosed with a right lower lobe pneumonia on outpatient chest x-ray on 03/03/2024 Started on Levaquin on 03/04/2024 confirmed she had 1 dose Patient has been without urinary symptoms urine culture growing lactobacillus species from 03/03/2024 No recent abdominal symptoms or diarrhea Will add tickborne panel due to mildly elevated INR for now Lactate and Pro-Vikas within normal limits, blood cultures were obtained Status post 1 dose of ceftriaxone and doxycycline in the ED, will continue both for now Will obtain sputum culture with Gram stain Incentive spirometry, flutter therapy, as needed O2 to keep SpO2 at or above 92% SQ Lovenox for DVT prophylaxis Heart healthy diet AM CBC CMP, mag, PT/INR #Hypoxia: Noted to be hypoxic with SpO2 in the high 80s on room air Currently stable on 2 L nasal cannula in no respiratory distress Likely due to her right lower lobe pneumonia, no signs of volume overload Rest of care per sepsis plan #Pneumonia: See sepsis and hypoxia plans #MDS (myelodysplastic syndrome) #Anemia [facility], currently on both SQ and oral chemotherapy Last scheduled treatment on 03/03/2024 was held due to fevers on arrival Continue to hold oral chemotherapy Will place oncology consult to follow while admitted - Hgb <7, will transfuse 2 units PRBC #Benign essential hypertension: Currently stable Will hold lisinopril for now until we without hypotension with sepsis on arrival Admission and Anticipated Discharge Date Admission Date: March 05, 2024 Subjective No acute events overnight Currently no new complaints She states that she feels much better compared to yesterday Physical Exam Physical Exam: Gen: in bed comfortable, no acute distress HEENT: NC/AT, MMM CVS: s1s2 nl, RRR Lungs: diminished breath sounds at the bases Abd: soft, NT, nl bs Ext: no edema Psych: pleasant, cooperative, communicating appropriately Results & Data Results & Data Vital Signs (Past 12 Hours) Vital Signs Temp Pulse Pulse Pulse Resp BP BP 03/06/24 04:07 38.1 C H 91 H 16 03/05/24 23:29 80 03/05/24 23:09 96 H 03/05/24 22:39 36.6 C 89 16 03/05/24 21:43 03/05/24 21:03 37.2 C 86 18 122/67 03/05/24 20:30 37.3 C 90 22 139/73 03/05/24 19:47 91 H BP Pulse Ox O2 Del Method O2 Flow Rate 03/06/24 04:07 111/65 92 Nasal Cannula 2 03/05/24 23:29 03/05/24 23:09 03/05/24 22:39 105/60 94 Nasal Cannula 1 03/05/24 21:43 Nasal Cannula 2 03/05/24 21:03 96 Nasal Cannula 2 03/05/24 20:30 96 Nasal Cannula 2 03/05/24 19:47 PG Care Time/CCT Total # of Minutes Spent Total Time Spent with Patient: Total time spent is greater than 50% in coordination of care (as documented) at patient's floor/unit and/or counseling patient: Coding Level of Care Code 25695 SUB INP/OBS CARE 2/35MIN Diagnoses Sepsis A41.9 Hypoxia R09.02 Pneumonia J18.9 MDS (myelodysplastic syndrome) D46.9 Benign essential hypertension I10
[2024-03-06 07:24] LABS: Albumin Globulin Ratio 0.9 (0.9-2); Albumin Level 2.8 gm/dl (3.4-5.0); Bilirubin,Total 0.6 mg/dl (0.2-1.0); Calcium 8.1 mg/dl (8.6-10.3); Creatinine Clr Calc Pharmacy 69.4 ml/min; Est GFR (African American) 103.4 ml/min; Est GFR (Non-African American) 89.2 ml/min; Globulin 3.2 gm/dl (2.5-4.0); Magnesium 1.9 mg/dl (1.7-2.4); Potassium 3.9 mmol/L (3.5-5.1)
[2024-03-06] MEDS: ASPIRIN 81 MG ECTAB PO SCH (07:52)
[2024-03-06] MEDS: cefTRIAXone SODIUM 2,000 MG/50 ML BAG IV SCH (16:30)
[2024-03-06] MEDS ORDERED: diphenhydrAMINE 50 MG/ML VIAL IV PRN (20:49)
[2024-03-06] MEDS ORDERED: ACETAMINOPHEN 325 MG TAB PO PRN (20:50)
--- NOTE | 2024-03-07 05:37 | Oncology Consultation ---
Date of Consultation March 07, 2024 Assessment & Plan (1) Multiple myeloma: (2) MDS (myelodysplastic syndrome): Plan -Clinically improving with IV antibiotics. Consider obtaining CTA chest to r/o PE if she continues to require supplemental O2 -Scheduled for treatment on 03/10, will delay by 1 week to allow for recovery. Hold off on oral chemotherapy until she is seen in clinic next week. Thank you for this consult. 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 Was diagnosed with pneumonia after presenting for treatment on 03/03/2024 and complained of fever for which infectious workup including chest xray was obtained. Xray revealed pneumonia and was started on levofloxacin on 03/04/2024. Presented to ER on 03/05/2024 with worsening symptoms. Currently on IV antibiotics. Received 2 units PRBC yesterday for Hb of 6.8 with improvement to 9.7 today. She feels better still requiring 3L/min supplemental O2 Allergies Allergy/AdvReac Type Severity Reaction Status Date / Time oxytocin Allergy Unknown extreme Verified 03/05/24 18:40 cramping Sulfa (Sulfonamide Allergy Unknown HIVES Verified 03/05/24 18:40 Antibiotics) sulfamethoxazole Allergy Hives Verified 03/05/24 18:40 Influenza Virus Vaccines AdvReac PMR Verified 03/05/24 18:40 Home Medications Medication Instructions Recorded Confirmed Type ascorbic acid (vitamin C) 500 mg 500 mg PO DAILY 12/31/23 03/05/24 History tablet (Vitamin C) calcium carbonate 600 mg-vitamin 1 tab PO DAILY 12/31/23 03/05/24 History D3 20 mcg (800 unit) chewable tablet (Caltrate 600 plus D) qfwkttrw-uajf-qwci 8 mg-folic 400 1 tab PO DAILY 12/31/23 03/05/24 History mcg-K 50 mcg-lutein 300 mcg tablet (Centrum Silver Women) lisinopril 10 mg tablet 10 mg PO DAILY #90 tabs 02/04/24 03/05/24 Rx aspirin 81 mg tablet,delayed 81 mg PO DAILY 03/05/24 03/05/24 History release cyanocobalamin (vitamin B-12) 1,000 mcg PO DAILY 03/05/24 03/05/24 History 1,000 mcg tablet (Vitamin B-12) dexamethasone 4 mg tablet See Rx Instructions .Route .COMPLEX 03/05/24 03/05/24 History levofloxacin 750 mg tablet 750 mg PO DAILY 03/05/24 03/05/24 History mometasone 50 mcg/actuation nasal 2 spray intranasal DAILY PRN 03/05/24 03/05/24 History spray Congestion omega 3-vuz-eit-fish oil 1,000 mg 1 cap PO DAILY 03/05/24 03/05/24 History (120 mg-180 mg) capsule (Fish Oil) ondansetron 8 mg disintegrating 8 mg PO Q8H PRN Nausea And Vomiting 03/05/24 03/05/24 History tablet prochlorperazine maleate 10 mg 10 mg PO Q6H PRN Nausea And 03/05/24 03/05/24 History tablet Vomiting vitamin A-vitamin C-vit E-min 1 tab PO DAILY 03/05/24 03/05/24 History tablet vitamin E 268 mg (400 unit) capsule 268 mg PO DAILY 03/05/24 03/05/24 History Patient History Medical History (Updated 03/07/24 @ 09:07 by Jennifer Lewis MD) Urinary tract infection Hx of breast cancer Surgical History S/P hernia surgery H/O breast surgery Family History Mother Breast cancer Father Myocardial infarction Denies family history of Ovarian cancer Prostate cancer Colorectal cancer Social History Smoking Status: Former smoker Tobacco Type: Cigarettes Age Started Using Tobacco: 19; Age Quit Using Tobacco: 39; packs per day: 1; Cigarettes Per Day: 20; Second Hand Exposure: No; Do You Dip or Chew Tobacco: No; Hx Alcohol Use: No Hx Substance Use: No Preferred Language: Iraqi Communication Ability: Effective Visual Impairment: Partially Limited Hearing Ability: Normal Lemon Picker Required: No Beliefs That Will Affect Care: None marital status: Current Living Situation: Spouse current occupational status: retired How many Children do You have: 2 Feels Safe at Home: Yes Childhood Exposure to Second-Hand Smoke: Yes Diet: regular caffeine: Yes during the past year weight has: remained stable Dental Care, Regularly: Yes Physical Activity Frequency: Daily Seatbelt Use: always Sunscreen Use: Yes Assistive Devices: Glasses Results & Data Vital Signs (Past 12 Hours) Vital Signs Temp Pulse Pulse Resp BP BP Pulse Ox 03/07/24 04:58 36.4 C L 71 16 118/74 97 03/07/24 03:58 36.7 C 61 16 114/70 97 03/07/24 03:28 36.6 C 65 16 116/74 96 03/07/24 03:13 36.8 C 75 16 119/74 98 03/07/24 02:56 36.6 C 75 16 125/73 98 03/07/24 02:38 36.4 C L 74 16 128/72 98 03/07/24 00:56 37.2 C 70 16 116/72 96 03/07/24 00:56 37.1 C 75 16 118/70 96 03/07/24 00:26 37.4 C 79 16 116/68 95 03/07/24 00:11 37.6 C H 83 16 118/64 95 03/06/24 23:54 37.5 C 85 16 114/67 94 03/06/24 23:26 37.2 C 87 20 103/57 L 95 03/06/24 23:09 82 03/06/24 21:01 03/06/24 19:53 37.2 C 91 H 20 133/72 95 O2 Del Method O2 Flow Rate 03/07/24 04:58 2 03/07/24 03:58 2 03/07/24 03:28 2 03/07/24 03:13 2 03/07/24 02:56 2 03/07/24 02:38 2 03/07/24 00:56 2 03/07/24 00:56 2 03/07/24 00:26 2 03/07/24 00:11 2 03/06/24 23:54 2 03/06/24 23:26 Nasal Cannula 2 03/06/24 23:09 03/06/24 21:01 Nasal Cannula 2 03/06/24 19:53 Nasal Cannula 2
[2024-03-07 08:07] LABS: INR 1.2 (0.9-1.1); Prothrombin Time 12.4 Seconds (9.0-12.0)
[2024-03-07 08:13] LABS: Albumin Globulin Ratio 0.9 (0.9-2); BUN Creatinine Ratio 22.5 (10-20); Bilirubin,Total 0.8 mg/dl (0.2-1.0); Calcium 8.2 mg/dl (8.6-10.3); Creatinine Clr Calc Pharmacy 95.4 ml/min; Est GFR (African American) 114.8 ml/min; Est GFR (Non-African American) 99.1 ml/min; Globulin 3.5 gm/dl (2.5-4.0); Magnesium 2.1 mg/dl (1.7-2.4); Phosphorus 3.4 mg/dl (2.5-4.9); Total Protein 6.5 gm/dl (6.0-8.3)
[2024-03-07 08:17] LABS: Hematocrit (blood only) 29.4 % (37.0-47.0); Hemoglobin 9.7 g/dl (12.0-16.0); Mean Corpuscular Hemoglobin 31.5 pg (25.0-34.0); Mean Corpuscular Volume 95.5 fL (80.0-100.0); Mean Platelet Volume 13.9 fL (9.4-12.4); Platelet Count 186 K/uL (130-400); RDW Coefficient of Variation 20.5 % (11.5-14.5); RDW Standard Deviation 67.4 fL (36.4-46.3); Red Blood Count 3.08 M/uL (4.20-5.40); White Blood Count 5.17 K/ul (4.8-10.8)
[2024-03-07 08:22] LABS: ALC (manual) 1.29 K/uL (1.2-3.4); Anisocytosis Present; Basophils # (manual) 0.36 K/uL (0-0.2); Basophils % (manual) 7 %; Dohle Bodies 1+; Eosinophils # (manual) 0.36 K/uL (0-0.50); Eosinophils % (manual) 7 %; Lymphocytes # (manual) 1.29 K/uL (1.2-3.4); Lymphocytes % (manual) 25 %; Monocytes # (manual) 0.16 K/uL (0.11-0.59); Monocytes % (manual) 3 %; Neutrophils % (manual) 58 %
--- NOTE | 2024-03-07 09:08 | Hospitalist Progress Note ---
Date of Service March 07, 2024 Assessment & Plan (1) Sepsis: (2) Hypoxia: (3) Pneumonia: (4) MDS (myelodysplastic syndrome): (5) Benign essential hypertension: Plan 78-year-old female with a past medical history significant for hypertension, multiple myeloma/myelodysplastic syndrome (on D-RVD), breast cancer status postlumpectomy/chemo/radiation in 1996 who presented to the [facility] ED on 03/05/2024 with recurrent fevers after being diagnosed with right lower lobe pneumonia and being started on Levaquin on 03/04/2024. On arrival to the ED she was noted to be tachycardic with heart rate in the 90s, hypoxic with SpO2 in the high 80s on room air, and otherwise stable. Labs were significant for an INR of 1.2, sodium of 132, chloride of 96, Pro-Vikas within normal limits. Chest x-ray was read as cardiomegaly and emphysema with radiographic evidence of congestive failure. Increasing airspace consolidation in the right lung as compared to 03/03/2024. This likely represents pneumonia. #Sepsis: Currently stable and nontoxic-appearing Presented to the ED with ongoing fevers and progressive generalized weakness and being diagnosed with a right lower lobe pneumonia on outpatient chest x-ray on 03/03/2024 Started on Levaquin on 03/04/2024 confirmed she had 1 dose Patient has been without urinary symptoms urine culture growing lactobacillus species from 03/03/2024 No recent abdominal symptoms or diarrhea Will add tickborne panel due to mildly elevated INR for now Lactate and Pro-Vikas within normal limits, blood cultures were obtained Status post 1 dose of ceftriaxone and doxycycline in the ED, will continue both for now Will obtain sputum culture with Gram stain Incentive spirometry, flutter therapy, as needed O2 to keep SpO2 at or above 92% Heart healthy diet #Hypoxia: - does not use oxygen at home Noted to be hypoxic with SpO2 in the high 80s on room air Currently stable on 3 L nasal cannula in no respiratory distress Likely due to her right lower lobe pneumonia, no signs of volume overload - per Onc recs, if pt still persisting with hypoxia in the next 24 hrs, will need CTA chest to r/o PE (other than hypoxia, pt is not tachycardic or hypotensive to warrant urgent imaging ) - ambulatory pulse ox prior to discharge #Pneumonia: See sepsis and hypoxia plans #MDS (myelodysplastic syndrome) #Anemia [facility], currently on both SQ and oral chemotherapy Last scheduled treatment on 03/03/2024 was held due to fevers on arrival Continue to hold oral chemotherapy oncology recs appreciated - Hgb was <7, will transfuse 2 units PRBC #Benign essential hypertension: Currently stable - will resume lisinopril #DVT ppx: given anemia, chemoppx contraindicated #Dispo: need to wean oxygen to RA prior to discharge Admission and Anticipated Discharge Date Admission Date: March 05, 2024 Subjective No acute events overnight Currently no new complaints She states that she feels much better compared to yesterday Review of Systems Review of Systems: Comprehensive ROS completed Physical Exam Physical Exam: Gen: in bed comfortable, no acute distress HEENT: NC/AT, MMM CVS: s1s2 nl, RRR Lungs: diminished breath sounds at the bases Abd: soft, NT, nl bs Ext: no edema Psych: pleasant, cooperative, communicating appropriately Results & Data Results & Data Vital Signs (Past 12 Hours) Vital Signs Temp Pulse Pulse Resp BP BP BP 03/07/24 08:23 03/07/24 08:08 88 03/07/24 07:48 37.0 C 78 16 129/76 03/07/24 05:46 36.5 C 65 16 126/77 03/07/24 04:58 36.4 C L 71 16 118/74 03/07/24 03:58 36.7 C 61 16 114/70 03/07/24 03:28 36.6 C 65 16 116/74 03/07/24 03:13 36.8 C 75 16 119/74 03/07/24 02:56 36.6 C 75 16 125/73 03/07/24 02:38 36.4 C L 74 16 128/72 03/07/24 00:56 37.2 C 70 16 116/72 03/07/24 00:56 37.1 C 75 16 118/70 03/07/24 00:26 37.4 C 79 16 116/68 03/07/24 00:11 37.6 C H 83 16 118/64 03/06/24 23:54 37.5 C 85 16 114/67 03/06/24 23:26 37.2 C 87 20 103/57 L 03/06/24 23:09 82 Pulse Ox O2 Del Method O2 Flow Rate 03/07/24 08:23 Nasal Cannula 3 03/07/24 08:08 03/07/24 07:48 92 Nasal Cannula 2 03/07/24 05:46 94 2 03/07/24 04:58 97 2 03/07/24 03:58 97 2 03/07/24 03:28 96 2 03/07/24 03:13 98 2 03/07/24 02:56 98 2 03/07/24 02:38 98 2 03/07/24 00:56 96 2 03/07/24 00:56 96 2 03/07/24 00:26 95 2 03/07/24 00:11 95 2 03/06/24 23:54 94 2 03/06/24 23:26 95 Nasal Cannula 2 03/06/24 23:09 PG Care Time/CCT Total # of Minutes Spent Total Time Spent with Patient: Total time spent is greater than 50% in coordination of care (as documented) at patient's floor/unit and/or counseling patient: Coding Level of Care Code 23426 SUB INP/OBS CARE 2/35MIN Diagnoses Sepsis A41.9 Hypoxia R09.02 Pneumonia J18.9 MDS (myelodysplastic syndrome) D46.9 Benign essential hypertension I10
[2024-03-07] MEDS: lisinopril 10 MG TAB PO SCH (10:13)
[2024-03-07 13:04] LABS: Hypogranular Neutrophils 2+
[2024-03-08 08:06] LABS: INR 1.2 (0.9-1.1); Prothrombin Time 12.5 Seconds (9.0-12.0)
[2024-03-08 08:21] LABS: Hematocrit (blood only) 30.7 % (37.0-47.0); Hemoglobin 10.3 g/dl (12.0-16.0); Mean Corpuscular Hemoglobin 31.5 pg (25.0-34.0); Mean Corpuscular Hgb Conc 33.6 g/dL (32.0-36.0); Mean Corpuscular Volume 93.9 fL (80.0-100.0); Mean Platelet Volume 13.3 fL (9.4-12.4); Platelet Count 220 K/uL (130-400); RDW Coefficient of Variation 20.3 % (11.5-14.5); RDW Standard Deviation 66.9 fL (36.4-46.3); Red Blood Count 3.27 M/uL (4.20-5.40)
[2024-03-08 08:24] LABS: ALC (manual) 1.03 K/uL (1.2-3.4); Anisocytosis Present; Basophils # (manual) 0.19 K/uL (0-0.2); Basophils % (manual) 4 %; Blast # (manual) 0.09 K/uL (0-0); Blast Cells % (manual) 2 %; Eosinophils # (manual) 0.24 K/uL (0-0.50); Eosinophils % (manual) 5 %; Hypogranular Neutrophils 1+; Lymphocytes # (manual) 1.03 K/uL (1.2-3.4); Lymphocytes % (manual) 22 %; Monocytes # (manual) 0.75 K/uL (0.11-0.59); Monocytes % (manual) 16 %; Neutrophils % (manual) 51 %
[2024-03-08 08:31] LABS: Albumin Globulin Ratio 0.8 (0.9-2); Albumin Level 3.1 gm/dl (3.4-5.0); BUN Creatinine Ratio 23.8 (10-20); Bilirubin,Total 0.8 mg/dl (0.2-1.0); Calcium 8.6 mg/dl (8.6-10.3); Creatinine Clr Calc Pharmacy 90.9 ml/min; Est GFR (Non-African American) 97.5 ml/min; Globulin 3.8 gm/dl (2.5-4.0); Magnesium 2.1 mg/dl (1.7-2.4); Potassium 4.2 mmol/L (3.5-5.1); Total Protein 6.9 gm/dl (6.0-8.3)
[2024-03-08] MEDS: POLYETHYLENE (MIRALAX) 17 GM PACK PO ONE (08:41)
--- NOTE | 2024-03-08 09:10 | Hospitalist Progress Note ---
Date of Service March 08, 2024 Assessment & Plan (1) Sepsis: Plan: secondary to pneumonia poa, history of COPD and multiple myeloma/myelodysplastic syndrome (on D-RVD) diagnosed with right lower lobe pneumonia and being started on Levaquin on 03/04/2024. Cultures, and on Ceftriaxone/doxycycline (2) Hypoxia: Plan: In ER noted to be hypoxic with SpO2 in the high 80s on room air Currently stable on 3 L nasal cannula in no respiratory distress CXR consistent with COPD, hypoxia worsened by right lower lobe pneumonia, - per Onc recs, if pt still persisting with hypoxia consider CTA chest to r/o PE (other than hypoxia, pt is not tachycardic or hypotensive to warrant urgent imaging ) a, no signs of volume overload - ambulatory pulse ox prior to discharge (3) MDS (myelodysplastic syndrome): Plan: MDS (myelodysplastic syndrome) with associated Anemia [facility], currently on both SQ and oral chemotherapy Last scheduled treatment on 03/03/2024 was held due to fevers on arrival Continue to hold oral chemotherapy oncology recs appreciated - Hgb was <7, will transfuse 2 units PRBC (4) Benign essential hypertension: Plan: Currently stable - lisinopril Plan DVT ppx: given anemia, chemoppx contraindicated Dispo: need to wean oxygen to RA prior to discharge Admission and Anticipated Discharge Date Admission Date: March 05, 2024 Subjective Pt is with mild sob, cxr shows copd but pt states she has not had diagnosis of this does have a distant smoking history Physical Exam Physical Exam: pt is unlabored but still requiring oxygen lungs are clear, but with poor air movement Results & Data Results & Data Vital Signs (Past 12 Hours) Vital Signs Temp Pulse Pulse Resp BP BP Pulse Ox 03/08/24 07:43 03/08/24 07:35 98.1 F 73 16 136/78 93 03/08/24 07:25 70 03/08/24 02:16 97.5 F L 65 16 121/75 96 03/07/24 22:00 99.3 F 76 16 125/71 92 03/07/24 21:59 76 O2 Del Method O2 Flow Rate 03/08/24 07:43 Nasal Cannula 2 03/08/24 07:35 Nasal Cannula 2 03/08/24 07:25 03/08/24 02:16 Nasal Cannula 2 03/07/24 22:00 Nasal Cannula 2 03/07/24 21:59 Laboratory Results review cbc review chemistry PG Care Time/CCT Total # of Minutes Spent Total Time Spent with Patient: Total time spent is greater than 50% in coordination of care (as documented) at patient's floor/unit and/or counseling patient: Coding Level of Care Code 39253 SUB INP/OBS CARE 2/35MIN Diagnoses Sepsis A41.9 Hypoxia R09.02 MDS (myelodysplastic syndrome) D46.9 Benign essential hypertension I10
[2024-03-08] MEDS: ENOXAPARIN INJ 40 MG/0.4 ML SYR SQ ONE (20:36)
[2024-03-08] MEDS: OPTIRAY 320 125ml IV ONE (21:20)
--- NOTE | 2024-03-09 | CT Scan Report ---
Exam(s): CTA CHEST IV Amt: 118 ML OPTIRAY 320 EXAM: CT Angiography Chest With Intravenous Contrast CLINICAL HISTORY: Reason for exam: PE. TECHNIQUE: Axial computed tomographic angiography images of the chest with intravenous contrast. CTDI is 15.8 mGy and DLP is 427.17 mGy-cm. Automated exposure control was utilized for the study. A dose lowering technique was utilized adhering to the principles of ALARA. MIP reconstructed images were created and reviewed. COMPARISON: No relevant prior studies available. FINDINGS: Pulmonary arteries: Unremarkable. No acute pulmonary embolism. Aorta: Atherosclerotic changes of the aorta. No thoracic aortic aneurysm. Lungs: Airspace consolidation in the RIGHT lower lobe, consistent with lobar pneumonia. Scarring/bronchiectasis of the RIGHT lung apex. Pleural space: Unremarkable. No significant effusion. No pneumothorax. Heart: Cardiomegaly. No significant pericardial effusion. No evidence of RV dysfunction. Bones/joints: Degenerative changes of the spine. No acute fracture. No dislocation. Soft tissues: Unremarkable. Lymph nodes: Unremarkable. No enlarged lymph nodes. IMPRESSION: 1. No acute pulmonary embolism. 2. Airspace consolidation in the RIGHT lower lobe, consistent with lobar pneumonia. Scarring/bronchiectasis of the RIGHT lung apex. Electronically signed by: Juan Pablo Bettencourt MD 03/08/24 23:59 PM
--- NOTE | 2024-03-09 15:40 | Electrocardiogram Report ---
Test Reason : Blood Pressure : */* mmHG Vent. Rate : 95 BPM Atrial Rate : 95 BPM P-R Int : 150 ms QRS Dur : 86 ms QT Int : 330 ms P-R-T Axes : 25 -3 31 degrees QTcB Int : 414 ms Normal sinus rhythm Normal ECG When compared with ECG of 07-Jun-2014 08:40, No significant change was found Confirmed by Ary Blanco (Tao) on 03/06/2024 6:34:14 PM Referred By: Confirmed By: Ary Blanco
--- NOTE | 2024-03-09 17:33 | Hospitalist Progress Note ---
Date of Service March 09, 2024 Assessment & Plan (1) Sepsis: Plan: secondary to pneumonia poa, history of COPD and multiple myeloma/myelodysplastic syndrome (on D-RVD) diagnosed with right lower lobe pneumonia and being started on Levaquin on 03/04/2024. Cultures, and on Ceftriaxone/doxycycline (2) Hypoxia: Plan: In ER noted to be hypoxic with SpO2 in the high 80s on room air Currently stable on 2 L nasal cannula, has CASTRO, unable to wean to RA now after 4 days concern for this being copd will start some breo CXR consistent with COPD, hypoxia worsened by right lower lobe pneumonia, -CTA chest to r/o PE negative for pe persists with RLL pending echo consult pulmonary medicine to maximize treatment to try to help wean, did not add steroids yet - ambulatory pulse ox prior to discharge (3) MDS (myelodysplastic syndrome): Plan: MDS (myelodysplastic syndrome) with associated Anemia [facility], currently on both SQ and oral chemotherapy Last scheduled treatment on 03/03/2024 was held due to fevers on arrival Continue to hold oral chemotherapy oncology recs appreciated - Hgb was <7, will transfuse 2 units PRBC (4) Benign essential hypertension: Plan: Currently stable - lisinopril Plan DVT ppx: given anemia, chemo ppx contraindicated Dispo: need to wean oxygen unable to do so Admission and Anticipated Discharge Date Admission Date: March 05, 2024 Subjective Pt is with mild sob,remains with oxygen needs cxr shows copd but pt states she has not had diagnosis of this CTA without PE, RLL pneumonia does have a distant smoking history Physical Exam Physical Exam: pt is unlabored but still requiring oxygen lungs are with poor air movement Results & Data Results & Data Vital Signs (Past 12 Hours) Vital Signs Temp Pulse Pulse Resp BP Pulse Ox O2 Del Method 03/09/24 15:36 97.9 F 76 16 124/80 95 Nasal Cannula 03/09/24 15:20 85 03/09/24 12:08 97.9 F 87 16 128/76 90 Nasal Cannula 03/09/24 10:39 Nasal Cannula 03/09/24 07:54 97.9 F 76 16 143/82 H 95 Room Air 03/09/24 07:25 69 O2 Flow Rate 03/09/24 15:36 2 03/09/24 15:20 03/09/24 12:08 2 03/09/24 10:39 2 03/09/24 07:54 03/09/24 07:25 PG Care Time/CCT Total # of Minutes Spent Total Time Spent with Patient: Total time spent is greater than 50% in coordination of care (as documented) at patient's floor/unit and/or counseling patient: Coding Level of Care Code 21696 SUB INP/OBS CARE 3/50MIN Diagnoses Sepsis A41.9 Hypoxia R09.02 MDS (myelodysplastic syndrome) D46.9 Benign essential hypertension I10
[2024-03-09] MEDS: FLUTICASONE/VILANTEROL 200/25MCG 14 PUFFS/INHALER INH SCH (19:57)
--- NOTE | 2024-03-10 10:07 | Pulmonary Consultation ---
Date of Consultation March 10, 2024 Assessment & Plan (1) Pneumonia: She has evidence of significant right lower lobe infiltrate suggestive of pneumonia. Agree with antibiotics at this time. Can likely transition to oral antibiotics such as Augmentin and doxycycline. Will treat for 10 days total. Will also start percussive vest therapy and hypertonic saline to promote mucociliary clearance. Obtain sputum culture if able. (2) Emphysema lung: She has significant emphysematous changes in her lungs and I suspect that she may have an element of chronic hypoxemia. She would need full PFTs as an outpatient. Will change inhaler regimen from Breo to Anoro. (3) History of tobacco use: Patient notes she quit smoking about 40 years ago, but has roughly a 56-[id number]-hyrf smoking history. Plan Thank you for the consult. Pulmonary continue to follow. History of Present Illness Reason for Consultation: Persistent hypoxemia on right lower lobe pneumonia Attending Physician: Nakul Davis MD History of Present Illness 78-year-old female with approximately 92-[id number] smoking history quit about 40 years ago, MDS, hypertension and osteoarthritis who presents to the hospital due to acute shortness of breath and fever. Patient denies any overt cough symptoms. She feels like her shortness of breath has improved, but she remains on low-flow oxygen and desaturates with ambulation on room air. She is currently being treated with Rocephin and doxycycline. Allergies Allergy/AdvReac Type Severity Reaction Status Date / Time oxytocin Allergy Unknown extreme Verified 03/05/24 18:40 cramping Sulfa (Sulfonamide Allergy Unknown HIVES Verified 03/05/24 18:40 Antibiotics) sulfamethoxazole Allergy Hives Verified 03/05/24 18:40 Influenza Virus Vaccines AdvReac PMR Verified 03/05/24 18:40 Home Medications Medication Instructions Recorded Confirmed Type ascorbic acid (vitamin C) 500 mg 500 mg PO DAILY 12/31/23 03/05/24 History tablet (Vitamin C) calcium carbonate 600 mg-vitamin 1 tab PO DAILY 12/31/23 03/05/24 History D3 20 mcg (800 unit) chewable tablet (Caltrate 600 plus D) alfxlkos-aipp-tymp 8 mg-folic 400 1 tab PO DAILY 12/31/23 03/05/24 History mcg-K 50 mcg-lutein 300 mcg tablet (Centrum Silver Women) lisinopril 10 mg tablet 10 mg PO DAILY #90 tabs 02/04/24 03/05/24 Rx aspirin 81 mg tablet,delayed 81 mg PO DAILY 03/05/24 03/05/24 History release cyanocobalamin (vitamin B-12) 1,000 mcg PO DAILY 03/05/24 03/05/24 History 1,000 mcg tablet (Vitamin B-12) dexamethasone 4 mg tablet See Rx Instructions .Route .COMPLEX 03/05/24 03/05/24 History levofloxacin 750 mg tablet 750 mg PO DAILY 03/05/24 03/05/24 History mometasone 50 mcg/actuation nasal 2 spray intranasal DAILY PRN 03/05/24 03/05/24 History spray Congestion omega 1-sdm-eyd-fish oil 1,000 mg 1 cap PO DAILY 03/05/24 03/05/24 History (120 mg-180 mg) capsule (Fish Oil) ondansetron 8 mg disintegrating 8 mg PO Q8H PRN Nausea And Vomiting 03/05/24 03/05/24 History tablet prochlorperazine maleate 10 mg 10 mg PO Q6H PRN Nausea And 03/05/24 03/05/24 History tablet Vomiting vitamin A-vitamin C-vit E-min 1 tab PO DAILY 03/05/24 03/05/24 History tablet vitamin E 268 mg (400 unit) capsule 268 mg PO DAILY 03/05/24 03/05/24 History Patient History Medical History (Updated 03/10/24 @ 10:05 by Louie Garcia MD) Urinary tract infection Hx of breast cancer Surgical History S/P hernia surgery H/O breast surgery Family History Mother Breast cancer Father Myocardial infarction Denies family history of Ovarian cancer Prostate cancer Colorectal cancer Social History Smoking Status: Former smoker Tobacco Type: Cigarettes Age Started Using Tobacco: 19; Age Quit Using Tobacco: 39; packs per day: 1; Cigarettes Per Day: 20; Second Hand Exposure: No; Do You Dip or Chew Tobacco: No; Hx Alcohol Use: No Hx Substance Use: No Preferred Language: [place] Citizen Communication Ability: Effective Visual Impairment: Partially Limited Hearing Ability: Normal Ambulette Driver Required: No Beliefs That Will Affect Care: None marital status: Current Living Situation: Spouse current occupational status: retired How many Children do You have: 2 Feels Safe at Home: Yes Childhood Exposure to Second-Hand Smoke: Yes Diet: regular caffeine: Yes during the past year weight has: remained stable Dental Care, Regularly: Yes Physical Activity Frequency: Daily Seatbelt Use: always Sunscreen Use: Yes Assistive Devices: Glasses Review of Systems Review of Systems: All systems reviewed & are unremarkable except as noted in HPI & below Physical Exam Physical Exam: Constitutional: Patient appears to be of their stated age. Patient is in no apparent distress. Patient is well-developed. Eyes: Pupils are equal round and reactive to light. Conjunctivae are normal. Anicteric sclera. Ears nose, mouth and throat: Mallampati class 1. Normal posterior oropharynx. Uvula is midline. Neck: Trachea is midline. Visual inspection is normal. Respiratory: Right lower lobe crackles. No wheezes. Prolonged phase of exhalation. Cardiovascular: Regular rate and rhythm. No murmurs. No edema. Gastrointestinal: Normal bowel sounds, soft, nontender and nondistended. No hepatosplenomegaly noted. Musculoskeletal: No cyanosis. Patient is able to move all extremities. Strength is 5 out of 5 in the upper and lower extremities. Skin: No rashes, warm dry and intact. Neurologic: No obvious focal neurological deficits seen. Psychiatric: Alert and oriented x3 with a euthymic affect. Results & Data Results & Data Vital Signs (Past 12 Hours) Vital Signs Temp Pulse Resp BP Pulse Ox O2 Del Method O2 Flow Rate 03/10/24 07:47 36.6 C 82 18 138/78 95 Nasal Cannula 2 03/10/24 04:57 36.6 C 84 18 123/79 98 Nasal Cannula 2 03/10/24 00:31 36.7 C 74 18 106/59 L 95 Nasal Cannula 2 PG Care Time/CCT Total # of Minutes Spent Total Time Spent with Patient: Total time spent is greater than 50% in coordination of care (as documented) at patient's floor/unit and/or counseling patient: Coding Level of Care Code 30769 INT INP/OBS CARE 3/75MIN Diagnoses Pneumonia J18.9 Emphysema lung J43.9 History of tobacco use Z87.891
[2024-03-10 12:17] LABS: Babesia microti DNA Not Detected (Not Detected)
--- NOTE | 2024-03-10 17:28 | Hospitalist Progress Note ---
Date of Service March 10, 2024 Assessment & Plan (1) Sepsis: Plan: secondary to pneumonia poa, history of COPD and multiple myeloma/myelodysplastic syndrome (on D-RVD) diagnosed with right lower lobe pneumonia and being started on Levaquin on 03/04/2024. Cultures, and on Ceftriaxone/doxycycline (2) Hypoxia: Plan: In ER noted to be hypoxic with SpO2 in the high 80s on room air Currently stable on 2 L nasal cannula, has CASTRO, unable to wean to RA now after 4 days concern for this being copd pulmonary medicine wants to change from breo to anoro need case management to arrange home oxygen CXR consistent with COPD, hypoxia worsened by right lower lobe pneumonia, -CTA chest to r/o PE negative for pe persists with RLL pending echo consult pulmonary medicine will follow up as outpt - ambulatory pulse ox prior to discharge (3) MDS (myelodysplastic syndrome): Plan: MDS (myelodysplastic syndrome) with associated Anemia [facility], currently on both SQ and oral chemotherapy Last scheduled treatment on 03/03/2024 was held due to fevers on arrival Continue to hold oral chemotherapy oncology recs appreciated - Hgb was <7, will transfuse 2 units PRBC (4) Benign essential hypertension: Plan: Currently stable - lisinopril Plan DVT ppx: given anemia, chemo ppx contraindicated Dispo: need to wean oxygen unable to do so Admission and Anticipated Discharge Date Admission Date: March 05, 2024 Subjective Pt is with mild sob,remains with oxygen needs cxr shows copd but pt states she has not had diagnosis of this CTA without PE, RLL pneumonia does have a distant smoking history Physical Exam Physical Exam: pt is unlabored but still requiring oxygen lungs are with poor air movement Results & Data Results & Data Vital Signs (Past 12 Hours) Vital Signs Temp Pulse Pulse Resp BP Pulse Ox O2 Del Method 03/10/24 15:29 97.9 F 101 H 18 122/83 97 Room Air 03/10/24 15:00 84 03/10/24 11:37 97.5 F L 89 20 124/82 96 Nasal Cannula 03/10/24 10:21 81 03/10/24 10:18 Nasal Cannula 03/10/24 07:47 97.9 F 82 18 138/78 95 Nasal Cannula O2 Flow Rate 03/10/24 15:29 03/10/24 15:00 03/10/24 11:37 2 03/10/24 10:21 03/10/24 10:18 2 03/10/24 07:47 2 PG Care Time/CCT Total # of Minutes Spent Total Time Spent with Patient: Total time spent is greater than 50% in coordination of care (as documented) at patient's floor/unit and/or counseling patient: Coding Level of Care Code 23868 SUB INP/OBS CARE 2/35MIN Diagnoses Sepsis A41.9 Hypoxia R09.02 MDS (myelodysplastic syndrome) D46.9 Benign essential hypertension I10
--- NOTE | 2024-03-10 17:38 | XCELERA ---
[id number] \\[id number]
[2024-03-10] MEDS: SODIUM CHLOR 7% 4 ML NEB NEB SCH (19:10)
[2024-03-10] MEDS: guaiFENesin 600 MG TABCR PO SCH (19:46)
--- NOTE | 2024-03-11 08:37 | Hospitalist Progress Note ---
Date of Service March 11, 2024 Assessment & Plan (1) Sepsis: (2) Hypoxia: (3) MDS (myelodysplastic syndrome): (4) Benign essential hypertension: Plan 78-year-old female with a past medical history significant for hypertension, multiple myeloma/myelodysplastic syndrome (on D-RVD), breast cancer status postlumpectomy/chemo/radiation in 1996 who presented to the [facility] ED on 03/05/2024 with recurrent fevers after being diagnosed with right lower lobe pneumonia and being started on Levaquin on 03/04/2024. On arrival to the ED she was noted to be tachycardic with heart rate in the 90s, hypoxic with SpO2 in the high 80s on room air, and otherwise stable. Labs were significant for an INR of 1.2, sodium of 132, chloride of 96, Pro-Vikas within normal limits. Chest x-ray was read as cardiomegaly and emphysema with radiographic evidence of congestive failure. Increasing airspace consolidation in the right lung as compared to 03/03/2024. This likely represents pneumonia. #Sepsis: Currently stable and nontoxic-appearing Presented to the ED with ongoing fevers and progressive generalized weakness and being diagnosed with a right lower lobe pneumonia on outpatient chest x-ray on 03/03/2024 Started on Levaquin on 03/04/2024 confirmed she had 1 dose Patient has been without urinary symptoms urine culture growing lactobacillus species from 03/03/2024 No recent abdominal symptoms or diarrhea Will add tickborne panel due to mildly elevated INR for now Lactate and Pro-Vikas within normal limits, blood cultures were obtained Status post 1 dose of ceftriaxone and doxycycline in the ED, will continue both for now Will obtain sputum culture with Gram stain Incentive spirometry, flutter therapy, as needed O2 to keep SpO2 at or above 92% Heart healthy diet #Hypoxia: - does not use oxygen at home Noted to be hypoxic with SpO2 in the high 80s on room air - down to 2L but unable to wean, likely due to underlying COPD further worsened by RLL pna - CTA chest unremarkable for PE but has airspace consolidation in the RLL - ambulatory pulse ox prior to discharge - ECHO unremarkable - outpatient follow up with pulm #Pneumonia: See sepsis and hypoxia plans #MDS (myelodysplastic syndrome) #Anemia [facility], currently on both SQ and oral chemotherapy Last scheduled treatment on 03/03/2024 was held due to fevers on arrival Continue to hold oral chemotherapy oncology recs appreciated - Hgb was <7, s/p 2 units PRBC, Hgb currently stable #Benign essential hypertension: Currently stable - will resume lisinopril #DVT ppx: given anemia, chemoppx contraindicated #Dispo: need to wean oxygen to RA prior to discharge Admission and Anticipated Discharge Date Admission Date: March 05, 2024 Results & Data Results & Data Vital Signs (Past 12 Hours) Vital Signs Temp Pulse Pulse Resp BP BP Pulse Ox 03/11/24 07:28 36.7 C 70 18 120/72 93 03/11/24 07:22 89 18 93 03/11/24 07:00 71 03/11/24 03:54 36.7 C 79 18 109/67 96 03/10/24 23:44 36.5 C 80 16 125/74 95 O2 Del Method O2 Flow Rate 03/11/24 07:28 Nasal Cannula 36.7 03/11/24 07:22 Nasal Cannula 2 03/11/24 07:00 03/11/24 03:54 Nasal Cannula 2 03/10/24 23:44 Nasal Cannula 2 PG Care Time/CCT Total # of Minutes Spent Total Time Spent with Patient: Total time spent is greater than 50% in coordination of care (as documented) at patient's floor/unit and/or counseling patient: Coding Diagnoses Sepsis A41.9 Hypoxia R09.02 MDS (myelodysplastic syndrome) D46.9 Benign essential hypertension I10
[2024-03-11] MEDS: UMECLIDINIUM/VILANTEROL 62.5/25MCG 7 PUFFS/INHALER INH SCH (09:22)
--- NOTE | 2024-03-11 11:47 | Discharge Summary ---
Discharge Summary Date of Service March 11, 2024 Principal Dx & Hospital Course #1 = Principal Diagnosis (1) Sepsis: (2) Hypoxia: (3) MDS (myelodysplastic syndrome): (4) Benign essential hypertension: Plan 78-year-old female with a past medical history significant for hypertension, multiple myeloma/myelodysplastic syndrome (on D-RVD), breast cancer status postlumpectomy/chemo/radiation in 1996 who presented to the [facility] ED on 03/05/2024 with recurrent fevers after being diagnosed with right lower lobe pneumonia and being started on Levaquin on 03/04/2024. On arrival to the ED she was noted to be tachycardic with heart rate in the 90s, hypoxic with SpO2 in the high 80s on room air, and otherwise stable. Labs were significant for an INR of 1.2, sodium of 132, chloride of 96, Pro-Vikas within normal limits. Chest x-ray was read as cardiomegaly and emphysema with radiographic evidence of congestive failure. Increasing airspace consolidation in the right lung as compared to 03/03/2024. This likely represents pneumonia. #Sepsis: #Pneumonia - significantly imporved - s/p 7 days of abx with CTX / Doxy #Hypoxia: - does not use oxygen at home Noted to be hypoxic with SpO2 in the high 80s on room air during the initial days of hospitalization - currently weaned off of oxygen at rest, ambulatory pulse ox stable, pt does not need home O1 - CTA chest unremarkable for PE but has airspace consolidation in the RLL - ECHO unremarkable - outpatient follow up with pulm #MDS (myelodysplastic syndrome) #Anemia [facility], currently on both SQ and oral chem otherapy Last scheduled treatment on 03/03/2024 was held due to fevers on arrival Continue to hold oral chemotherapy oncology recs appreciated - Hgb was <7, s/p 2 units PRBC, Hgb currently stable #Benign essential hypertension: Currently stable - cont lisinopril #DVT ppx: given anemia, chemoppx contraindicated #Dispo: need to wean oxygen to RA prior to discharge Admission HPI Per Admitting Provider Yoanna is a 78-year-old female with a past medical history significant for hypertension, multiple myeloma/myelodysplastic syndrome (on D-RVD), breast cancer status postlumpectomy/chemo/radiation in 1996 who presented to the [facility] ED on 03/05/2024 with recurrent fevers after being diagnosed with right lower lobe pneumonia and being started on Levaquin on 03/04/2024. On arrival to the ED she was noted to be tachycardic with heart rate in the 90s, hypoxic with SpO2 in the high 80s on room air, and otherwise stable. Labs were significant for an INR of 1.2, sodium of 132, chloride of 96, Pro-Vikas within normal limits. Chest x-ray was read as cardiomegaly and emphysema with r adiographic evidence of congestive failure. Increasing airspace consolidation in the right lung as compared to 03/03/2024. This likely represents pneumonia. Radiographic follow-up to resolution is recommended. Prior to admission the patient was given a dose of ceftriaxone and doxycycline. Of note, patient also had a UA obtained on 03/03/2024 which noted cloudy appearance, 3+ protein, trace ketones, 2+ blood, trace leukocyte Estrace, 11-20 WBC, 11-20 epithelial cells, and 2+ bacteria. Urine culture from 03/03/2024 grew lactobacillus species only. Patient was sitting in bed in no acute distress at time of exam but does appear fatigued, her is bedside. She explains that she was scheduled to have her next round of chemotherapy injections on 03/03/2024 at the [facility]. When she arrived she was found to be febrile so treatment was held and infectious workup was started as explained above. She was prescribed Levaquin and had 1 dose on 03/04/2024. States that over the past 24 hours she has had continued fevers with increased generalized weakness/fatigue. Has also been experiencing progressive shortness of breath with nonproductive cough. Denies chest pain, hemoptysis, abdominal pain, nausea/vomiting, diarrhea, dysuria, hematuria, lower extremity swelling, insect bites, rash, and recent trauma. We discussed CODE STATUS, she is a DNR/DNI and want her to make medical decisions for her if she cannot make them herself. Please refer to Dr. Pollock's attestation for any changes to treatment plan Discharge Exam Gen: sitting in bed comfortable, no acute distress, speaking in full sentences HEENT: NC/AT, MMM CVS: pulse stable (detailed cardiac eval limited due to pt being on percussive therapy) Lungs: breathing comfortably, no respiratory distress Abd: soft, NT, nl bs Ext: no edema Psych: pleasant, cooperative, communicating appropriately Discharge Plan Discharge Items Patient Disposition: Home - Self-Care Reason For Visit: PNEUMONIA, HYPOXIA Discharge Diagnosis: Pneumonia Activity: Resume your previous activity Non-emergency contact: Primary Care Provider Call non-emergency contact if: you have any medication questions, your symptoms worsen and you have a fever Follow-up/Referrals: Nadir Perez III, CRNP [Primary Care Provider] - Louie Garcia MD [Physician] - (COPD ) Jennifer Lewis MD [Physician] - (MDS ) Diet: Heart Healthy Addtl Attending Provider Instructions: follow up outpatient with your PCP in about 7 to 10 days for after discharge follow up Follow up with your oncologist follow up with production dispatcher Pending Studies at Discharge: No Stand-Alone Forms: My [employer], Smoking Cessation Medications and DC Order Prescriptions: New Anoro Ellipta 62.5-25 mcg/actuation Blister With Device 1 inh inhalation DAILY Qty: 60 0RF Continued lisinopril 10 mg tablet 10 mg PO DAILY Qty: 90 3RF ascorbic acid (vitamin C) [Vitamin C] 500 mg Tablet 500 mg PO DAILY Centrum Silver Women 8 mg iron-400 mcg-50 mcg Tablet 1 tab PO DAILY Caltrate 600 plus D 600 mg-20 mcg (800 unit) Tablet,Chewable 1 tab PO DAILY cyanocobalamin (vitamin B-12) [Vitamin B-12] 1,000 mcg Tablet 1,000 mcg PO DAILY prochlorperazine maleate 10 mg tablet 10 mg PO Q6H PRN (Reason: Nausea And Vomiting) aspirin 81 mg Tablet,Delayed Release (Dr/Ec) 81 mg PO DAILY ondansetron 8 mg tablet,disintegrating 8 mg PO Q8H PRN (Reason: Nausea And Vomiting) dexamethasone 4 mg tablet See Rx Instructions .ROUTE .COMPLEX Rx Instructions: TAKE 20mg ON DAYS 1,8,15 OF EACH CYCLE. TAKE 1 HOUR BEFORE DARATUMUMAB ON DARATUMUMAB DAYS. vitamin E 268 mg (400 unit) Capsule 268 mg PO DAILY vitamin A-vitamin C-vit E-min Tablet 1 tab PO DAILY omega 3-axp-muf-fish oil [Fish Oil] 1,000 mg (120 mg-180 mg) Capsule 1 cap PO DAILY mometasone 50 mcg/actuation spray,non-aerosol 2 spray INTNAS DAILY PRN (Reason: Congestion) Discontinued levofloxacin 750 mg tablet 750 mg PO DAILY Rx Instructions: Start Date 03/05/24 x7 day supply, pt has only taken 1 dose Discharge Orders: Discharge Order (Routine); Ordered 03/11/24 Ordered By: Clover De La Cruz/Other Patient Handouts: Preventing Pneumonia, Treating Pneumonia Admission Data Admit Date/Time: 03/05/24 18:44 Attending Provider: Clover Tavares Admit Provider: Krason Pollock Primary Care Provider: Nadir Perez III Other Providers: Karson Pollock; Jennifer Lewis; Louie Garcia Hospital Stay Data Consultations 03/05/24 18:41 ED Decision to Admit Stat 03/05/24 18:59 Consult Oncology Routine 03/09/24 17:28 Consult Pulmonology Routine Diagnostic Imagining Performed 03/08/24 18:29 CT angio chest PE protocol Routine Pending Results Patient Have Any Pending Studies at Discharge: No Discharge Instructions Given to Patient (Per Discharging Provider) follow up outpatient with your PCP in about 7 to 10 days for after discharge follow up Follow up with your oncologist follow up with production dispatcher Total Time Total Time Spent Total Time Spent (In Minutes): 60 Coding Level of Care Code 77725 INP/OBS DISCH >30 MIN Diagnoses Sepsis A41.9 Hypoxia R09.02 MDS (myelodysplastic syndrome) D46.9 Benign essential hypertension I10
[2024-03-11 11:48] VITALS: RESP 18; O2SAT 93
[2024-03-11 11:51] VITALS: BP 118/73; PULSE 85; TEMP 97.7
== END 2024-03-11 12:35 | disposition home or self-care (01) | DRG 871 ==
LOC: ED 14:49 → 2W 18:44 → SUATTDRO 18:44 → 2W 20:33

== ENCOUNTER 2024-10-24 15:01 | Inpatient (IN) ==
[2024-10-24 16:18] LABS: Albumin Globulin Ratio 1.8 (0.9-2); Albumin Level 3.9 gm/dl (3.4-5.0); BUN Creatinine Ratio 29.6 (10-20); Bilirubin,Total 0.8 mg/dl (0.2-1.0); Calcium 8.8 mg/dl (8.6-10.3); Globulin 2.2 gm/dl (2.5-4.0); Potassium 3.9 mmol/L (3.5-5.1); Total Protein 6.1 gm/dl (6.0-8.3)
--- NOTE | 2024-10-24 16:22 | Emergency Department Note ---
Impression & Plan Cellulitis, Dog bite, Multiple myeloma, MDS (myelodysplastic syndrome) ED Provider Note CHIEF COMPLAINT: Infection of hand HISTORY OF PRESENTING ILLNESS: This 78-year-old female patient presents to the emergency department for evaluation of an infection to her right hand. The patient had a dog bite to her right thumb on 10/20/2024. The patient's Finnish Heriberto Rodrigueziel was going for a toy and accidentally bit her right thumb/hand area. The patient did not get evaluated after the dog bite and has not been on any antibiotics. The dog's rabies vaccine is up to date. The patient states that her tetanus shot is up to date. The patient has not had any fevers. There has been some discharge from the wound. Having mild pain to the hand/thumb. Mild decreased ROM of the right thumb. Denies numbness or tingling. The patient has a history of multiple myeloma and MDS. When the patient went to get her chemotherapy this morning, her oncologist (Dr. Lewis) advised against chemotherapy and sent the patient to the ED for IV antibiotics. The patient has a port that has already been accessed. She is not on any blood thinners. REVIEW OF SYSTEMS: See HPI for pertinent positives and pertinent negatives. ALLERGIES: Oxytocin, Bactrim, Influenza MEDICATIONS: See below PAST MEDICAL HISTORY: See below PHYSICAL EXAM: VITALS: Vitals are noted on the nurse's note and reviewed by myself. GENERAL: Non toxic, in no acute distress, non-diaphoretic. SKIN: The patient has a dog bite over the dorsal aspect of the right first metacarpal that is infected. There is significant erythema, edema, and warmth. There is purulent scabbing over the area of the dog bite over the first metacarpal. No active discharge. No significant fluctuation, but there is induration. There is erythema extending over the dorsal aspect of the right hand with 2 areas of scabbing that were likely from dog bites as well. However, these appear to be healing without complication. The patient has a 5 cm long area of lymphatic streaking going up the right forearm. Capillary refill <2 sec. EYES: PERRLA. EOMI. Conjunctivae without injection, sclerae without icterus. NOSE: Patent without discharge. MOUTH: Mucous membranes moist. Uvula midline. Airway patent. NECK: Supple without nuchal rigidity. HEART: Regular rate and rhythm without murmurs gallops or rubs. LUNGS: Clear to auscultation bilaterally without wheezes, rales or rhonchi. No retractions or accessory muscle use. MUSCULOSKELETAL: The patient is tender to palpation over the area of erythema and edema. She is still able to move the thumb, but with decreased range of motion. Mild tenderness with range of motion of the right thumb, but no significant pain. The patient does have mildly decreased strength in all directions of the right thumb due to pain. No significant tenderness to palpation over the remainder of the right hand or fingers. No significant tenderness to palpation over the right wrist. Normal sensation to light and sharp touch of the right hand. Radial pulse 2+. NEURO: Patient was alert and oriented. No focal neurological deficits. DIFFERENTIAL DIAGNOSIS: Differential diagnosis includes cellulitis, abscess, osteomyelitis, septic arthritis, tenosynovitis, foreign body, sepsis, or others. ED COURSE AND MEDICAL DECISION MAKING: MEDICATIONS GIVEN: 1 L normal saline solution bolus. Unasyn 3 g IV. Tylenol 1000 mg IV. MONITOR: Continuous engine monitor: Order was placed for continuous engine monitor. Patient was placed on the engine monitor and continuous pulse ox. Patient was noted to be in normal sinus rhythm at an initial rate of 80 bpm per my interpretation. EKG: EKG was interpreted by myself as normal sinus rhythm at 76 bpm with no acute ST or T wave changes and no significant change from her previous EKG. INTERPRETATION OF LABS: I interpreted the labs with full lab results as below in the lab section of this note. Laboratory results pertinent to the emergent complaint are discussed in the MDM section below. The patient was advised to follow up with their PCP and/or specialist(s) for further outpatient monitoring and management of any abnormal results. INTERPRETATION OF IMAGING: Imaging studies were interpreted by myself and read by radiology as per the imaging section of this note. The patient was advised to follow up with their PCP and/or specialist(s) for further outpatient management of any non-emergent abnormal findings. CT scan of the right hand with IV contrast shows soft tissue laceration near the base of the thumb with subcutaneous edema extending distally throughout the thumb and proximal to the level of the wrist without significant extension into the forearm. No abscess is noted. No foreign body noted. No underlying bony abnormality. No evidence for osteomyelitis. There is osteoarthritis present. CHRONIC MEDICAL/SOCIAL CONDITIONS AFFECTING CARE: History of multiple myeloma and MDS currently on chemotherapy. CONSULTATIONS: On-call hospitalist MDM SUMMARY: The patient was seen during a time of extreme volume and extreme acuity. Nursing triage protocols were initiated with IV lock, labs, and/or imaging studies conducted by protocol in the triage area. The patient was examined by myself once they were taken back to an exam room. The patient was bit by her dog on. The patient was not evaluated after the dog bite and has not been on any antibiotics. The dog's rabies vaccine is up-to-date per patient. The patient states that her tetanus shot is up-to-date. She has not had any fevers, but has had redness and discharge from the wound. Mild pain and mild decreased range of motion of the right thumb from the symptoms. The patient has a history of multiple myeloma and MDS and went to get her chemotherapy this morning, but her and oncologist advised that she come to the ER for IV antibiotics and possible admission due to the infection. On exam, the patient does have a significant infection to the right thumb and right hand from the dog bite. No obvious fluctuance, pointing, or discharge on exam. White blood cell count normal at 7.18. Hemoglobin low at 9.1, but stable. Platelet count elevated at 654. Glucose 167 and ALT 58, but CMP otherwise without concerning abnormalities. CRP elevated at 6.91, but sed rate was normal. Lactate and procalcitonin are normal. CT scan of the right hand with IV contrast shows soft tissue laceration near the base of the thumb with subcutaneous edema extending distally throughout the thumb and proximal to the level of the wrist without significant extension into the forearm. No abscess is noted. No foreign body noted. No underlying bony abnormality. No evidence for osteomyelitis. There is osteoarthritis present. Blood cultures are still pending. The patient was given a dose of IV Unasyn. She was also given 1 L normal saline solution bolus and a dose of IV Tylenol. The patient is immunocompromise due to chemotherapy treatment. The patient does have a significant infection of the right hand from the dog bite, but no evidence for abscess at this time. Low suspicion for infectious tenosynovitis or osteomyelitis at this time. I feel the patient requires admission for IV antibiotics and close monitoring of her symptoms. I had a meaningful discussion about this patient with Dr. Dai who agrees with my assessment and the treatment plan. I spoke with the on-call hospitalist who agreed to admit the patient for further inpatient evaluation and treatment. Please refer to their dictation for further details. The patient was admitted in stable condition. DIAGNOSIS: Dog bite cellulitis of the right hand Multiple myeloma and MDS on chemotherapy Past Med/Surg History Problem List (Updated 10/25/24 @ 00:57 by Enid Butterfield PA-C) Dog bite (Acute) Cellulitis (Acute) Encounter for pre-operative examination Scarring of lung Emphysema lung Multiple myeloma (Acute) MDS (myelodysplastic syndrome) (Acute) Monoclonal gammopathy of unknown significance (MGUS) Anemia Benign essential hypertension (Acute) Generalized osteoarthrosis, unspecified site (Acute) Medical History Multiple myeloma dx 09/2023, currently in remission Monoclonal gammopathy of unknown significance (MGUS) MDS (myelodysplastic syndrome) 09/26/24, currently having a full week of chemo this week Emphysema lung Benign essential hypertension History of anemia Right lower lobe pulmonary nodule History of pneumonia 02/2024, no residual symptoms History of tobacco use Sepsis hx, 02/2024, w/pneumonia Hx of breast cancer dx 1996, 4 rounds go chemo prior to sx, aug 1997 6 xrt treatments Surgical History Port-A-Cath in place (10/03/24) Insertion of Access Port with Fluoroscopy(Left) - Tomi Zuniga DO History of dilatation and curettage (1971) History of open reduction and internal fixation (ORIF) procedure (1956) right fibula Hx of colonoscopy Hx of bilateral cataract extraction History of bone marrow biopsy most recent 07/2024 Hx of repair of right rotator cuff (2013) Hx of nasal septoplasty (2002) Hx of vaginal hysterectomy 12/1992 History of lumpectomy of right breast 1996 S/P hernia surgery 05/1978, left inguinal 01/1984, left arterial hernia Family History Mother Breast cancer Father Myocardial infarction Hypertension Grandmother Cancer Denies family history of Ovarian cancer Prostate cancer Colorectal cancer Social History Smoking Status: Former smoker Tobacco Type: Cigarettes Age Started Using Tobacco: 19; Age Quit Using Tobacco: 39; packs per day: 1; Cigarettes Per Day: A pack a day.; Smoking End Date: 40 years ago.; Second Hand Exposure: No; Do You Dip or Chew Tobacco: No; Tobacco Cessation Education Requested by Patient: No Hx Alcohol Use: Yes Alcohol type: wine Alcohol Intake Frequency: 2-3 x/Week Hx Substance Use: No Preferred Language: Bulgarian Communication Ability: Effective Visual Impairment: Partially Limited Hearing Ability: Normal Public Transportation Inspector Required: No Beliefs That Will Affect Care: None marital status: Current Living Situation: Spouse current occupational status: retired How many Children do You have: 2 Other Information That Helps Us Care for You: No Feels Safe at Home: Yes Safety Concerns: Feels Safe At This Time Childhood Exposure to Second-Hand Smoke: Yes Diet: regular caffeine: Yes during the past year weight has: remained stable Dental Care, Regularly: Yes Physical Activity Frequency: Daily Seatbelt Use: always Sunscreen Use: Yes Assistive Devices: Glasses and Hospital Bed Assistive Devices Comment: Glasses are "readers". Allergies Allergies Allergy/AdvReac Type Severity Reaction Status Date / Time oxytocin Allergy Unknown extreme Verified 10/17/24 07:00 cramping Sulfa (Sulfonamide Allergy Unknown HIVES Verified 10/17/24 07:00 Antibiotics) sulfamethoxazole Allergy Hives Verified 10/17/24 07:00 Influenza Virus Vaccines AdvReac PMR Verified 10/17/24 07:00 Home Meds Home Medications Medication Instructions Recorded Confirmed ascorbic acid (vitamin C) 500 mg 500 mg PO DAILY 12/31/23 10/24/24 tablet (Vitamin C) calcium 600 mg (as carbonate)-vit 1 tab PO DAILY 12/31/23 10/24/24 D3 20 mcg (800 unit) chewable tablet (Caltrate plus D) gcujvfxy-jovb-ygee 8 mg-folic 400 1 tab PO DAILY 12/31/23 10/24/24 mcg-K 50 mcg-lutein 300 mcg tablet (Centrum Silver Women) aspirin 81 mg tablet,delayed 81 mg PO DAILY 03/05/24 10/24/24 release cyanocobalamin (vitamin B-12) 1,000 mcg PO DAILY 03/05/24 10/24/24 1,000 mcg tablet (Vitamin B-12) mometasone 50 mcg/actuation nasal 2 spray intranasal DAILY PRN 03/05/24 10/24/24 spray Congestion omega 3-cra-eem-fish oil 1,000 mg 1 cap PO DAILY 03/05/24 10/24/24 (120 mg-180 mg) capsule (Fish Oil) ondansetron 8 mg disintegrating 8 mg PO Q8H PRN Nausea And Vomiting 03/05/24 10/24/24 tablet prochlorperazine maleate 10 mg 10 mg PO Q6H PRN Nausea And 03/05/24 10/24/24 tablet Vomiting vitamin A-vitamin C-vit E-min 1 tab PO DAILY 03/05/24 10/24/24 tablet vitamin E 268 mg (400 unit) capsule 268 mg PO DAILY 03/05/24 10/24/24 acyclovir 400 mg tablet 400 mg PO BID 07/14/24 10/24/24 lisinopril 10 mg tablet 10 mg PO QAM 09/26/24 10/24/24 lidocaine-prilocaine 2.5 %-2.5 % 1 applic topical UD 10/24/24 10/24/24 topical cream Results & Data (ED) Vital Signs Vital Signs - 24 hr 10/24/24 15:06 10/24/24 16:21 10/24/24 17:28 Temperature 36.6 C Temperature Source Temporal Artery Scan Pulse Rate 92 H 77 Pulse Rate [Finger] 81 Respiratory Rate 16 18 Respiratory Effort / Characteristics Non-Labored Spontaneous Non-Labored Spontaneous Respiratory Depth Normal Normal Respiratory Pattern Regular Regular Blood Pressure 157/74 H Blood Pressure [Right Arm] 157/79 H Blood Pressure Mean 101 Blood Pressure Mean [Right Arm] 105 Blood Pressure Position Sitting Pulse Oximetry 94 94 Oxygen Delivery Method Room Air Room Air Sepsis Recent Fever Within 48 Hours No Sepsis New/Unexplained Change in Mental Status N/A Sepsis Action Taken by Nursing No Action Required 10/24/24 18:00 Temperature Temperature Source Pulse Rate Pulse Rate [Finger] 71 Respiratory Rate 20 Respiratory Effort / Characteristics Respiratory Depth Respiratory Pattern Blood Pressure Blood Pressure [Right Arm] 137/77 Blood Pressure Mean Blood Pressure Mean [Right Arm] 97 Blood Pressure Position Pulse Oximetry 93 Oxygen Delivery Method Room Air Sepsis Recent Fever Within 48 Hours Sepsis New/Unexplained Change in Mental Status Sepsis Action Taken by Nursing Laboratory Data 10/24/24 15:42 04/14/25 15:42 Lab Results 10/24/24 10/24/24 Range/Units 15:42 17:09 WBC 7.18 (4.8-10.8) K/ul RBC 3.15 L (4.20-5.40) M/uL Hgb 9.1 L (12.0-16.0) g/dl Hct 28.3 L (37.0-47.0) % MCV 89.8 (80.0-100.0) fL MCH 28.9 (25.0-34.0) pg MCHC 32.2 (32.0-36.0) g/dL RDW Std Deviation 51.6 H (36.4-46.3) fL RDW Coeff of Juan 17.7 H (11.5-14.5) % Plt Count 654 H (130-400) K/uL MPV 13.3 H (9.4-12.4) fL Immature Gran % (Auto) 0.0 % Neut % (Auto) 59.3 % Lymph % (Auto) 28.4 % [place] % (Auto) 11.7 % Eos % (Auto) 0.3 % Baso % (Auto) 0.3 % Neut # (Auto) 4.26 (1.40-6.50) K/uL Lymph # (Auto) 2.04 (1.20-3.40) K/uL [place] # (Auto) 0.84 H (0.11-0.59) K/uL Eos # (Auto) 0.02 (0.00-0.50) K/uL Baso # (Auto) 0.02 (0.00-0.20) K/uL Immature Gran # (Auto) 0.00 L (0.01-0.20) K/uL Hypogranular Neuts 3+ Giant Platelets 1+ Polychromasia 1+ ESR 25 (0-30) mm/hr Sodium 136 (136-145) mmol/L Potassium 3.9 (3.5-5.1) mmol/L Chloride 102 (98-107) mmol/L Carbon Dioxide 31 (21-32) mmol/L Anion Gap 3 (3-11) BUN 16 (6-23) mg/dl Creatinine 0.54 L (0.6-1.2) mg/dl Est Cr Clr Drug Dosing 68.0 ml/min eGFR 93.60 BUN/Creatinine Ratio 29.6 H (10-20) Glucose 167 H (70-99(Fasting)) mg/dl Lactate 1.2 (0.4-2.0) mmol/L Calcium 8.8 (8.6-10.3) mg/dl Total Bilirubin 0.8 (0.2-1.0) mg/dl AST 28 (13-39) U/L ALT 58 H (7-52) U/L Alkaline Phosphatase 86 (34-104) U/L C-Reactive Protein 6.91 H (0-0.5) mg/dl Total Protein 6.1 (6.0-8.3) gm/dl Albumin 3.9 (3.4-5.0) gm/dl Globulin 2.2 L (2.5-4.0) gm/dl Albumin/Globulin Ratio 1.8 (0.9-2) Procalcitonin 0.17 (0-0.5) ng/ml Administered Medications Acyclovir (Acyclovir 400 Mg Tab) 400 mg PO BID ARJUN Stop: 11/23/24 20:59 Last Admin: 10/24/24 21:40 Dose: 400 mg Documented By: VÍCTOR Ampicillin Sodium/Sulbactam Sodium (Unasyn) 3,000 mg in 100 mls @ 200 mls/hr IV Q6H ARJUN Stop: 11/01/24 00:00 Last Infusion: 10/25/24 00:35 Dose: Infused Documented By: Admin: 10/24/24 23:52 Dose: 200 mls/hr Documented By: VÍCTOR Discontinued Medications Acetaminophen (Acetaminophen 500 Mg Tab) Confirm Administered Dose 1,000 mg .ROUTE .STK-MED ONE Stop: 10/24/24 17:18 Last Admin: 10/24/24 17:30 Dose: Not Given Documented By: SABINE Sodium Chloride (Nss) 1,000 mls @ 999 mls/hr IV .Q1H1M ONE Stop: 10/24/24 17:30 Last Infusion: 10/24/24 19:06 Dose: Infused Documented By: Admin: 10/24/24 17:23 Dose: 999 mls/hr Documented By: SABINE Ampicillin Sodium/Sulbactam Sodium (Unasyn) 3,000 mg in 100 mls @ 200 mls/hr IV NOW STA Stop: 10/24/24 16:59 Last Infusion: 10/24/24 18:03 Dose: Infused Documented By: Admin: 10/24/24 17:23 Dose: 200 mls/hr Documented By: SABINE Acetaminophen (Ofirmev) 1,000 mg in 100 mls @ 400 mls/hr IV NOW STA Stop: 10/24/24 17:37 Last Infusion: 10/24/24 18:03 Dose: Infused Documented By: Admin: 10/24/24 17:30 Dose: 400 mls/hr Documented By: SABINE Ioversol (Optiray 320 100ml) 93 ml IV ONCE ONE Stop: 10/24/24 16:52 Last Admin: 10/24/24 16:51 Dose: 93 ml Documented By: STAR Imaging Data Radiologist's Impression: Hand CT 10/24/24 16:30 CT right hand with and without contrast History: Dog bite Comparison: None Technique: CT performed of the right hand with and without IV contrast. Dose reduction techniques were achieved by using automatic exposure control and/or adjustment of mA and/or kV according to patient size and/or use of iterative reconstruction technique. Findings: No fracture or dislocation. Joint spaces are normally aligned. There is severe osteoarthritis at the first carpometacarpal joint. A soft tissue laceration is seen near the base of the thumb, where there is an area of subcutaneous free fluid, without focal fluid collection. Edema extends along the length of the thumb distally, and proximally to approximately the level of the wrist, without significant extension into the forearm. No visualized abscesses. No aggressive osseous lesion. Impression: Soft tissue laceration seen near the base of the thumb, with subcutaneous edema extending distally throughout the thumb, and proximally to the level of the wrist without significant extension into the forearm. No abscess. No underlying bony abnormality. Osteoarthritis. Electronically signed by Nick Hoang 10-24-2024 5:23 PM Discharge Plan Visit Data Chief Complaint: Infection Stated Complaint: INFECTION RT HAND, [facility] Provider: Yoni Dai ED Midlevel Provider: Enid Butterfield Discharge Problem: Cellulitis, Dog bite, Multiple myeloma, MDS (myelodysplastic syndrome) Patient Disposition: Admitted As Inpatient Condition: Good Discharge Instructions Interventions: ED Discharge Assessment Last Done: 10/24/24 20:29 Discharge Problem: Cellulitis Qualifiers: Site of cellulitis: extremity Site of cellulitis of extremity: upper extremity Laterality: right Qualified Code(s): L03.113 - Cellulitis of right upper limb Dog bite Qualifiers: Encounter type: initial encounter Qualified Code(s): W54.0XXA - Bitten by dog, initial encounter Multiple myeloma Qualifiers: Multiple myeloma remission status: unspecified Qualified Code(s): C90.00 - Multiple myeloma not having achieved remission
[2024-10-24] MEDS: OPTIRAY 320 100ml IV ONE (16:51)
[2024-10-24 17:03] LABS: Basophils # (auto) 0.02 K/uL (0.00-0.20); Basophils % (auto) 0.3 %; Eosinophils # (auto) 0.02 K/uL (0.00-0.50); Eosinophils % (auto) 0.3 %; Giant Platelets 1+; Hematocrit (blood only) 28.3 % (37.0-47.0); Hemoglobin 9.1 g/dl (12.0-16.0); Hypogranular Neutrophils 3+; Lymphocytes # (auto) 2.04 K/uL (1.20-3.40); Lymphocytes % (auto) 28.4 %; Mean Corpuscular Hemoglobin 28.9 pg (25.0-34.0); Mean Corpuscular Hgb Conc 32.2 g/dL (32.0-36.0); Mean Corpuscular Volume 89.8 fL (80.0-100.0); Mean Platelet Volume 13.3 fL (9.4-12.4); Monocytes # (auto) 0.84 K/uL (0.11-0.59); Monocytes % (auto) 11.7 %; Neutrophils # (auto) 4.26 K/uL (1.40-6.50); Neutrophils % (auto) 59.3 %; Platelet Count 654 K/uL (130-400); Polychromasia 1+; RDW Coefficient of Variation 17.7 % (11.5-14.5); RDW Standard Deviation 51.6 fL (36.4-46.3); Red Blood Count 3.15 M/uL (4.20-5.40); White Blood Count 7.18 K/ul (4.8-10.8)
[2024-10-24 17:05] LABS: C Reactive Protein 6.91 mg/dl (0-0.5)
[2024-10-24] MEDS: SODIUM CHLORIDE 0.9% 1,000 ML IV ONE (17:23)
[2024-10-24] MEDS: AMPICILLIN/SULBACTAM SOD 3,000 MG/100 ML BAG IV STA (17:23)
--- NOTE | 2024-10-24 17:23 | CT Scan Report ---
CT right hand with and without contrast History: Dog bite Comparison: None Technique: CT performed of the right hand with and without IV contrast. Dose reduction techniques were achieved by using automatic exposure control and/or adjustment of mA and/or kV according to patient size and/or use of iterative reconstruction technique. Findings: No fracture or dislocation. Joint spaces are normally aligned. There is severe osteoarthritis at the first carpometacarpal joint. A soft tissue laceration is seen near the base of the thumb, where there is an area of subcutaneous free fluid, without focal fluid collection. Edema extends along the length of the thumb distally, and proximally to approximately the level of the wrist, without significant extension into the forearm. No visualized abscesses. No aggressive osseous lesion. Impression: Soft tissue laceration seen near the base of the thumb, with subcutaneous edema extending distally throughout the thumb, and proximally to the level of the wrist without significant extension into the forearm. No abscess. No underlying bony abnormality. Osteoarthritis. Electronically signed by Nick Hoang 10-24-2024 5:23 PM
[2024-10-24] MEDS: ACETAMINOPHEN 500 MG TAB ONE (17:30)
[2024-10-24] MEDS: ACETAMINOPHEN 1,000 MG/100 ML VIAL IV STA (17:30)
--- NOTE | 2024-10-24 17:51 | Emergency Department Note ---
ED Visit Note I was consulted by the Advanced Practice Provider, Enid Butterfield PA-C. I personally made/approved the management plan and take responsibility for the patient management. I performed a substantive portion of the visit. This includes the aspects of: -History/Physical/Personally seeing the patient -MDM .
--- NOTE | 2024-10-24 19:26 | History & Physical Report ---
Date of Service October 24, 2024 Assessment & Plan (1) Cellulitis: (2) Dog bite: (3) Multiple myeloma: (4) MDS (myelodysplastic syndrome): Plan 78-year-old female PMHx MDS, MM, HTN, and anemia presenting for a R thumb wound. Dog bite occurred 10/20/2024, no antibiotics were started outpatient. ED evaluation reveals WBC 7.18, H&H 10.1/28.3, platelets 654, currently 6 0, ESR 25; CMP creatinine 0.54, ratio 29.6, glucose 167, AST 28, ALT 58; CRP 6.91; procalcitonin 0.17; hand CT soft tissue laceration seen near base of thumb with subcutaneous edema extending distally throughout the thumb and proximally to the level of the wrist without significant extension into the forearm, no abscess, no underlying bony abnormality; blood cultures pending.; Provided with 1L NSS, Unasyn 3 g IV, and acetaminophen 1 g IV in ED. #Cellulitis/Dog Bite Dog bite from pet dog 10/20/2024, no antibiotics started as outpatient and continued to worsen 1 day YOKER. Tetanus UTD, dog's vaccines UTD. Peronally spoke with Dr. Krishnamurthy via phone call regarding patient's case- Recommended IV antibiotics and NS/peroxide warms soaks every shift; provider to evaluation patient in AM. - CBC WBC 7.18, H/H 9.1/28.3; ESR 25; lactate 1.2; CRP 6.91; procal 0.17; blood cultures pending - CBC + BMP am - CT hand (R) soft tissue laceration near base of thumb subcutaneous edema extending distally throughout the thumb proximal to the level of the wrist without significant extension into the forearm, no abscess, no underlying bony abnormality - NPO midnight in anticipation for possible surgical intervention - AM ASA held in anticipation ? surgical intervention - Warm soaks w/ half NSS/Peroxide q shift for 10 minutes - Start LR @ 80 mL/hr at midnight (echo 02/2024 55-60%) - Acetaminophen prn pain - Unasyn IV - ID consulted- appreciate input + recs - Ortho consulted- appreciate input + recs #MM/MDS MM diagnosed 09/2023, MDS 09/26/2024; Follows with heme/onc, most recent visit day of arrival 10/24/2024. Was to start chemo day of arrival which did not occur, on a 28-day course with 5 days on of chemo, 3 weeks off. - CBC WBC up from baseline 7.18, H/H 9.1/28.3, plt 654 - Zofran prn N/V - Pt's oncologist (Dr. Lewis) consulted regarding chemotherapy #HTN Benign HTN; Controlled upon admission - Lisinopril- continue Dispo: Admit, med/sx VTE Prophylaxis: SCDs This document was dictated utilizing [employer]ero. Please excuse any grammatical errors that may be secondary to use of this software. Admission and Anticipated Discharge Date Admission Date: 10/24/2024 History of Present Illness Chief Complaint: Right hand wound Primary Care Provider: Nadir Perez III, ALEXEY 78-year-old female PMHx MDS, MM, HTN, and anemia presenting for a R thumb wound. Patient states that on 10/20/2024, she was playing with her pet dog (show dog) when she went to throw the toy and the dog struck her hand. Patient states that time she was still playing with the dog, and decided not to seek medical attention and just iced the area. Approximately 1 day YOKER she noted that the area started to become very tender, erythematous, and started to have yellow discharge coming from it. States that she went to her oncology appointment to have chemotherapy on the day of arrival, but her provider noted that she should come to the ED given the appearance of the wound. Patient states that she is having tenderness to the area and some numbness in her thumb, but is still able to have normal passive ROM with some pain in doing so. States that the dog is up-to-date on all vaccines and she is up-to-date on her tetanus shot. Patient denies systemic symptoms to include F/C, no streaking, and no loss of ROM. Overall denying chest pain, shortness breath, palpitations, abdominal pain, N/V/D/C, additional numbness/tingling, URI symptoms, or LUTS. Patient states that she was due to start her 5-day course of chemotherapy on the day of arrival but was not started on this given that she instead came to the ED. States she is on a 28-day schedule with 5 days chemotherapy then 3 weeks off. She is due for chemotherapy starting the day of admission (10/24/2024). ED evaluation reveals WBC 7.18, H&H 10.1/28.3, platelets 654, currently 6 0, ESR 25; CMP creatinine 0.54, ratio 29.6, glucose 167, AST 28, ALT 58; CRP 6.91; procalcitonin 0.17; hand CT soft tissue laceration seen near base of thumb with subcutaneous edema extending distally throughout the thumb and proximally to the level of the wrist without significant extension into the forearm, no abscess, no underlying bony abnormality; blood cultures pending.; Provided with 1L NSS, Unasyn 3 g IV, and acetaminophen 1 g IV in ED. Please see Dr. Vuong's attestation for adjustments/additions to treatment plan. Allergies Allergy/AdvReac Type Severity Reaction Status Date / Time oxytocin Allergy Unknown extreme Verified 10/17/24 07:00 cramping Sulfa (Sulfonamide Allergy Unknown HIVES Verified 10/17/24 07:00 Antibiotics) sulfamethoxazole Allergy Hives Verified 10/17/24 07:00 Influenza Virus Vaccines AdvReac PMR Verified 10/17/24 07:00 Home Medications Medication Instructions Recorded Confirmed Type ascorbic acid (vitamin C) 500 mg 500 mg PO DAILY 12/31/23 10/24/24 History tablet (Vitamin C) calcium 600 mg (as carbonate)-vit 1 tab PO DAILY 12/31/23 10/24/24 History D3 20 mcg (800 unit) chewable tablet (Caltrate plus D) [id number]-ltot-hfrg 8 mg-folic 400 1 tab PO DAILY 12/31/23 10/24/24 History mcg-K 50 mcg-lutein 300 mcg tablet (Centrum Silver Women) aspirin 81 mg tablet,delayed 81 mg PO DAILY 03/05/24 10/24/24 History release cyanocobalamin (vitamin B-12) 1,000 mcg PO DAILY 03/05/24 10/24/24 History 1,000 mcg tablet (Vitamin B-12) mometasone 50 mcg/actuation nasal 2 spray intranasal DAILY PRN 03/05/24 10/24/24 History spray Congestion omega 6-vyc-kyn-fish oil 1,000 mg 1 cap PO DAILY 03/05/24 10/24/24 History (120 mg-180 mg) capsule (Fish Oil) ondansetron 8 mg disintegrating 8 mg PO Q8H PRN Nausea And Vomiting 03/05/24 10/24/24 History tablet prochlorperazine maleate 10 mg 10 mg PO Q6H PRN Nausea And 03/05/24 10/24/24 History tablet Vomiting vitamin A-vitamin C-vit E-min 1 tab PO DAILY 03/05/24 10/24/24 History tablet vitamin E 268 mg (400 unit) capsule 268 mg PO DAILY 03/05/24 10/24/24 History acyclovir 400 mg tablet 400 mg PO BID 07/14/24 10/24/24 History lisinopril 10 mg tablet 10 mg PO QAM 09/26/24 10/24/24 History lidocaine-prilocaine 2.5 %-2.5 % 1 applic topical UD 10/24/24 10/24/24 History topical cream Past Med/Surg History Problem List Dog bite Cellulitis Encounter for pre-operative examination Scarring of lung Emphysema lung Multiple myeloma MDS (myelodysplastic syndrome) (Acute) Monoclonal gammopathy of unknown significance (MGUS) Anemia Benign essential hypertension (Acute) Generalized osteoarthrosis, unspecified site (Acute) Medical History Multiple myeloma dx 09/2023, currently in remission Monoclonal gammopathy of unknown significance (MGUS) MDS (myelodysplastic syndrome) 09/26/24, currently having a full week of chemo this week Emphysema lung Benign essential hypertension History of anemia Right lower lobe pulmonary nodule History of pneumonia 02/2024, no residual symptoms History of tobacco use Sepsis hx, 02/2024, w/pneumonia Hx of breast cancer dx 1996, 4 rounds go chemo prior to sx, jul/aug 1997 6 xrt treatments Surgical History Port-A-Cath in place (10/03/24) Insertion of Access Port with Fluoroscopy(Left) - Tomi Zuniga DO History of dilatation and curettage (1971) History of open reduction and internal fixation (ORIF) procedure (1956) right fibula Hx of colonoscopy Hx of bilateral cataract extraction History of bone marrow biopsy most recent 07/2024 Hx of repair of right rotator cuff (2013) Hx of nasal septoplasty (2002) Hx of vaginal hysterectomy 12/1992 History of lumpectomy of right breast 1997 S/P hernia surgery 05/1978, left inguinal 01/1984, left arterial hernia Family History Mother Breast cancer Father Myocardial infarction Hypertension Grandmother Cancer Denies family history of Ovarian cancer Prostate cancer Colorectal cancer Social History Smoking Status: Former smoker Tobacco Type: Cigarettes Age Started Using Tobacco: 19; Age Quit Using Tobacco: 39; packs per day: 1; Cigarettes Per Day: A pack a day.; Smoking End Date: 40 years ago.; Second Hand Exposure: No; Do You Dip or Chew Tobacco: No; Tobacco Cessation Education Requested by Patient: No Hx Alcohol Use: Yes Alcohol type: wine Alcohol Intake Frequency: 2-3 x/Week Hx Substance Use: No Preferred Language: Northern Irish Communication Ability: Effective Visual Impairment: Partially Limited Hearing Ability: Normal Relay Mechanic Required: No Beliefs That Will Affect Care: None marital status: Current Living Situation: Spouse current occupational status: retired How many Children do You have: 2 Other Information That Helps Us Care for You: No Feels Safe at Home: Yes Safety Concerns: Feels Safe At This Time Childhood Exposure to Second-Hand Smoke: Yes Diet: regular caffeine: Yes during the past year weight has: remained stable Dental Care, Regularly: Yes Physical Activity Frequency: Daily Seatbelt Use: always Sunscreen Use: Yes Assistive Devices: Glasses and Hospital Bed Assistive Devices Comment: Glasses are "readers". Review of Systems 2 Review of Systems: All systems reviewed & are unremarkable except as noted in Subjective Physical Exam 2 Physical Exam: General: No acute distress Skin: Warm and dry; port present and covered in dressing L chest, not erythematous or edematous; right thumb erythematous and edematous extending to wrist, discharge from site, odor present (see image) Head: Normocephalic, atraumatic Eyes: PERRL, conjunctivae clear, sclera non-icteric ENT: External ear and ear canal without swelling; nose atraumatic; good dentition, tongue normal appearance, pharynx normal Neck: Supple, no LAD Cardio: RRR, no M/G/R, S1 and S2 normal Resp: No respiratory distress, Lungs CTA in all lobes bilaterally, no wheezes, rales, or rhonchi Abdomen: Soft, symmetric, nontender; No masses or hepatosplenomegaly; Bowel sounds normoactive MSK: No deformities; pulses palpable and equal; no edema. Neuro: Awake, alert; Sensation intact bilaterally; CN grossly intact; pulses palpable and strong radial Psych: Appropriate mood and affect; good judgement and insight. Results & Data Results & Data Vital Signs (Past 12 Hours) Vital Signs Temp Pulse Pulse Resp BP BP Pulse Ox 10/24/24 18:00 71 20 137/77 93 10/24/24 17:28 77 10/24/24 16:21 81 18 157/79 H 94 10/24/24 15:06 36.6 C 92 H 16 157/74 H 94 O2 Del Method 10/24/24 18:00 Room Air 10/24/24 17:28 10/24/24 16:21 Room Air 10/24/24 15:06 Room Air Laboratory Results 10/24/24 17:09 Aerobic Blood Culture - Pending Blood Anaerobic Blood Culture - Pending 10/24/24 17:09 Aerobic Blood Culture - Pending Blood Anaerobic Blood Culture - Pending 10/24/24 10/24/24 17:09 15:42 WBC 7.18 RBC 3.15 L Hgb 9.1 L Hct 28.3 L MCV 89.8 MCH 28.9 MCHC 32.2 RDW Std Deviation 51.6 H RDW Coeff of Juan 17.7 H Plt Count 654 H MPV 13.3 H Immature Gran % (Auto) 0.0 Neut % (Auto) 59.3 Lymph % (Auto) 28.4 [place] % (Auto) 11.7 Eos % (Auto) 0.3 Baso % (Auto) 0.3 Neut # (Auto) 4.26 Lymph # (Auto) 2.04 [place] # (Auto) 0.84 H Eos # (Auto) 0.02 Baso # (Auto) 0.02 Immature Gran # (Auto) 0.00 L Hypogranular Neuts 3+ Giant Platelets 1+ Polychromasia 1+ ESR 25 Sodium 136 Potassium 3.9 Chloride 102 Carbon Dioxide 31 Anion Gap 3 BUN 16 Creatinine 0.54 L Est Cr Clr Drug Dosing 68.0 eGFR 93.60 BUN/Creatinine Ratio 29.6 H Glucose 167 H Lactate 1.2 Calcium 8.8 Total Bilirubin 0.8 AST 28 ALT 58 H Alkaline Phosphatase 86 C-Reactive Protein 6.91 H Total Protein 6.1 Albumin 3.9 Globulin 2.2 L Albumin/Globulin Ratio 1.8 Procalcitonin 0.[address] 10/24/24 16:30 CT right hand with and without contrast History: Dog bite Comparison: None Technique: CT performed of the right hand with and without IV contrast. Dose reduction techniques were achieved by using automatic exposure control and/or adjustment of mA and/or kV according to patient size and/or use of iterative reconstruction technique. Findings: No fracture or dislocation. Joint spaces are normally aligned. There is severe osteoarthritis at the first carpometacarpal joint. A soft tissue laceration is seen near the base of the thumb, where there is an area of subcutaneous free fluid, without focal fluid collection. Edema extends along the length of the thumb distally, and proximally to approximately the level of the wrist, without significant extension into the forearm. No visualized abscesses. No aggressive osseous lesion. Impression: Soft tissue laceration seen near the base of the thumb, with subcutaneous edema extending distally throughout the thumb, and proximally to the level of the wrist without significant extension into the forearm. No abscess. No underlying bony abnormality. Osteoarthritis. Electronically signed by Nick Hoang 10-24-2024 5:23 PM Medications Administered 1L NSS Unasyn 3 g IV Acetaminophen 1 g IV Code Status & VTE Plan Code Status DNR/DNI Discussed in detail what "DNR/DNI" entails; patient understood fully. All questions asked and answered. Patient confirms wishes to be DNR/DNI status. VTE Prophylaxis Plan VTE Prophylaxis will be ordered: Yes Supervising Physician Co-Signing Physician Notes patient seen and examined, chart reviewed, case discussed with JOSE Edward agree with assessment and plan as document above. In brief, patient is a 78-year-old female with history of myelodysplastic disorder and multiple myeloma on chemotherapy presenting with infection of right hand after sustaining a dog bite on 10/20/24. the dog in question is a domestic pet, up-to-date on all vaccines and presently healthy. Patient was given a tetanus vaccine On physical examawake alert and oriented, nontoxic, answering questions appropriately Skinas per photograph above. Patient with area of soft tissue laceration with purulent, foul-smelling discharge. Some surrounding edema and erythema with some mild streaking into the hand. HEENTneck supple, moist mucous membranes Heart+ S1, S2, regular, no murmur/rub/gallops Lungs CTA anteriorly Abdomensoft, nontender, nondistended Labs and images reviewed. WBC count is normal with normal differential CRP is elevated at 6.91 CT of the hand obtained with results above Assessment/[id number]-bane-[id number] female with multiple myeloma/mild dysplastic syndrome on chemotherapy presenting after a dog bite sustained to her right hand approximately 4 days prior to arrival. Patient with evidence of local infection, erythema, warmth, tenderness, edema as well as purulent foul-smelling discharge coming from the wound. No systemic evidence of infection. Patient denies fever, chills, nausea. She is afebrile and hemodynamically stable at present Admit to medical Continue Unasyn Continue local wound care, peroxide soaked Orthopedic surgery consultation appreciated Will keep the patient n.p.o. after midnight tonight for possible OR/washout in the morning Remainder as above PG Care Time/CCT Total # of Minutes Spent Total Time Spent with Patient: Total time spent is greater than 50% in coordination of care (as documented) at patient's floor/unit and/or counseling patient: Coding Level of Care Code 86071 INT INP/OBS CARE 3/75MIN Diagnoses Cellulitis L03.90 Dog bite W54.0XXA Multiple myeloma, remission status unspecified C90.00 Multiple myeloma remission status: unspecified MDS (myelodysplastic syndrome) D46.9 (3) Multiple myeloma Multiple myeloma remission status: unspecified Qualified Code(s): C90.00 - Multiple myeloma not having achieved remission
[2024-10-24] MEDS ORDERED: ONDANSETRON INJ 2 MG/ML 2 ML VIAL IV PRN (20:57)
[2024-10-24] MEDS ORDERED: POLYETHYLENE (MIRALAX) 17 GM PACK PO PRN (20:57)
[2024-10-24] MEDS ORDERED: PROCHLORPERAZINE MALEATE 10 MG TAB PO PRN (20:57)
[2024-10-24] MEDS: ACYCLOVIR 400 MG TAB PO SCH (21:40)
[2024-10-24] MEDS: AMPICILLIN/SULBACTAM SOD 3,000 MG/100 ML BAG IV SCH (23:52)
[2024-10-25] MEDS ORDERED: LACTATED RINGER'S 1,000 ML IV SCH
[2024-10-25] MEDS: ACETAMINOPHEN 325 MG TAB PO PRN (01:20)
[2024-10-25] MEDS: LACTATED RINGER'S 1,000 ML IV SCH (04:00)
[2024-10-25] MEDS: lisinopril 10 MG TAB PO SCH (07:45)
--- NOTE | 2024-10-25 08:11 | Oncology Consultation ---
Date of Consultation October 25, 2024 Assessment & Plan (1) Dog bite of right hand including fingers with infection: (2) Cellulitis: (3) Multiple myeloma: (4) MDS (myelodysplastic syndrome): Plan -Labs significant for anemia with hemoglobin of 7.7 secondary to underlying MDS as well as chemotherapy. Patient is typically symptomatic whenever hemoglobin is below 8 and would expect hemoglobin to decline further. Recommend transfusing with 1 unit PRBC for hemoglobin of 7.7 -Will follow up with me on discharge to resume systemic therapy History of Present Illness Reason for Consultation: MDS, Multiple myeloma Attending Physician: Chas Chand MD History of Present Illness Ms. Cardona is a pleasant 78-year-old female with medical history significant for multiple myeloma for which she is currently on monthly maintenance Darzalex, also has a history of MDS currently on monthly decitabine. She presented to the cancer center on 03/26/2025 for cycle 3, day 1 of decitabine and at that time indicated that she had a dog bite. Clinical examination was concerning for cellulitis for which she was sent to the ER. She was subsequently admitted and was started on broad-spectrum antibiotics. She underwent incision, drainage and debridement on 10/25/2024. Allergies Allergy/AdvReac Type Severity Reaction Status Date / Time oxytocin Allergy Unknown extreme Verified 10/17/24 07:00 cramping Sulfa (Sulfonamide Allergy Unknown HIVES Verified 10/17/24 07:00 Antibiotics) sulfamethoxazole Allergy Hives Verified 10/17/24 07:00 Influenza Virus Vaccines AdvReac PMR Verified 10/17/24 07:00 Home Medications Medication Instructions Recorded Confirmed Type ascorbic acid (vitamin C) 500 mg 500 mg PO DAILY 12/31/23 10/24/24 History tablet (Vitamin C) calcium 600 mg (as carbonate)-vit 1 tab PO DAILY 12/31/23 10/24/24 History D3 20 mcg (800 unit) chewable tablet (Caltrate plus D) buyffmuz-neos-mutf 8 mg-folic 400 1 tab PO DAILY 12/31/23 10/24/24 History mcg-K 50 mcg-lutein 300 mcg tablet (Centrum Silver Women) aspirin 81 mg tablet,delayed 81 mg PO DAILY 03/05/24 10/24/24 History release cyanocobalamin (vitamin B-12) 1,000 mcg PO DAILY 03/05/24 10/24/24 History 1,000 mcg tablet (Vitamin B-12) mometasone 50 mcg/actuation nasal 2 spray intranasal DAILY PRN 03/05/24 10/24/24 History spray Congestion omega 2-xls-njw-fish oil 1,000 mg 1 cap PO DAILY 03/05/24 10/24/24 History (120 mg-180 mg) capsule (Fish Oil) ondansetron 8 mg disintegrating 8 mg PO Q8H PRN Nausea And Vomiting 03/05/24 10/24/24 History tablet prochlorperazine maleate 10 mg 10 mg PO Q6H PRN Nausea And 03/05/24 10/24/24 History tablet Vomiting vitamin A-vitamin C-vit E-min 1 tab PO DAILY 03/05/24 10/24/24 History tablet vitamin E 268 mg (400 unit) capsule 268 mg PO DAILY 03/05/24 10/24/24 History acyclovir 400 mg tablet 400 mg PO BID 07/14/24 10/24/24 History lisinopril 10 mg tablet 10 mg PO QAM 09/26/24 10/24/24 History lidocaine-prilocaine 2.5 %-2.5 % 1 applic topical UD 10/24/24 10/24/24 History topical cream Patient History Medical History Multiple myeloma dx 09/2023, currently in remission Monoclonal gammopathy of unknown significance (MGUS) MDS (myelodysplastic syndrome) 09/26/24, currently having a full week of chemo this week Emphysema lung Benign essential hypertension History of anemia Right lower lobe pulmonary nodule History of pneumonia 02/2024, no residual symptoms History of tobacco use Sepsis hx, 02/2024, w/pneumonia Hx of breast cancer dx 1996, 4 rounds go chemo prior to sx, aug 1997 6 xrt treatments Surgical History Port-A-Cath in place (10/03/24) Insertion of Access Port with Fluoroscopy(Left) - Tomi Zuniga DO History of dilatation and curettage (1971) History of open reduction and internal fixation (ORIF) procedure (1956) right fibula Hx of colonoscopy Hx of bilateral cataract extraction History of bone marrow biopsy most recent 07/2024 Hx of repair of right rotator cuff (2013) Hx of nasal septoplasty (2002) Hx of vaginal hysterectomy 12/1992 History of lumpectomy of right breast 1996 S/P hernia surgery 05/1978, left inguinal 01/1984, left arterial hernia Family History Mother Breast cancer Father Myocardial infarction Hypertension Grandmother Cancer Denies family history of Ovarian cancer Prostate cancer Colorectal cancer Social History Smoking Status: Former smoker Tobacco Type: Cigarettes Age Started Using Tobacco: 19; Age Quit Using Tobacco: 39; packs per day: 1; Cigarettes Per Day: A pack a day.; Smoking End Date: 40 years ago.; Second Hand Exposure: No; Do You Dip or Chew Tobacco: No; Tobacco Cessation Education Requested by Patient: No Hx Alcohol Use: Yes Alcohol type: wine Alcohol Intake Frequency: 2-3 x/Week Hx Substance Use: No Preferred Language: Korean Communication Ability: Effective Visual Impairment: Partially Limited Hearing Ability: Normal Store Custodian Required: No Beliefs That Will Affect Care: None marital status: Current Living Situation: Spouse current occupational status: retired How many Children do You have: 2 Other Information That Helps Us Care for You: No Feels Safe at Home: Yes Safety Concerns: Feels Safe At This Time Childhood Exposure to Second-Hand Smoke: Yes Diet: regular caffeine: Yes during the past year weight has: remained stable Dental Care, Regularly: Yes Physical Activity Frequency: Daily Seatbelt Use: always Sunscreen Use: Yes Assistive Devices: None Assistive Devices Comment: Glasses are "readers". Results & Data Vital Signs (Past 12 Hours) Vital Signs Temp Pulse Pulse Resp BP BP Pulse Ox 10/25/24 07:52 36.6 C 56 L 14 144/79 H 96 10/25/24 07:44 36.6 C 73 16 133/74 94 10/24/24 20:53 36.6 C 77 16 154/83 H 93 10/24/24 20:29 76 20 148/89 H 94 O2 Del Method 10/25/24 07:52 Room Air 10/25/24 07:44 Room Air 10/24/24 20:53 Room Air 10/24/24 20:29 Room Air (1) Dog bite of right hand including fingers with infection Encounter type: initial encounter Qualified Code(s): S61.451A - Open bite of right hand, initial encounter; S61.259A - Open bite of unspecified finger without damage to nail, initial encounter; L08.9 - Local infection of the skin and subcutaneous tissue, unspecified; W54.0XXA - Bitten by dog, initial encounter (2) Cellulitis Laterality: right Site of cellulitis: extremity Site of cellulitis of extremity: upper extremity Qualified Code(s): L03.113 - Cellulitis of right upper limb (3) Multiple myeloma Multiple myeloma remission status: unspecified Qualified Code(s): C90.00 - Multiple myeloma not having achieved remission
--- NOTE | 2024-10-25 08:28 | Hospitalist Progress Note ---
Date of Service October 25, 2024 Assessment & Plan (1) Cellulitis: (2) Dog bite: (3) Multiple myeloma: (4) MDS (myelodysplastic syndrome): Plan 78-year-old female PMHx MDS, MM, HTN, and anemia presenting for a R thumb wound. Dog bite occurred 10/20/2024, no antibiotics were started outpatient. ED evaluation reveals WBC 7.18, H&H 10.1/28.3, platelets 654, currently 6 0, ESR 25; CMP creatinine 0.54, ratio 29.6, glucose 167, AST 28, ALT 58; CRP 6.91; procalcitonin 0.17; hand CT soft tissue laceration seen near base of thumb with subcutaneous edema extending distally throughout the thumb and proximally to the level of the wrist without significant extension into the forearm, no abscess, no underlying bony abnormality; blood cultures pending.; Provided with 1L NSS, Unasyn 3 g IV, and acetaminophen 1 g IV in ED. #Cellulitis/Dog Bite , R Hand/Thumb Initial injury w/ dog bite on 10/20 (dog UTD on vaccines, pt UTD on tetanus) Procal 0.17 on admission, WBC wnl. CT hand (R) soft tissue laceration near base of thumb subcutaneous edema extending distally throughout the thumb proximal to the level of the wrist without significant extension into the forearm, no abscess, no underlying bony abnormality Unasyn IV continued Blood cultures pending Cx from drainage from hand sent 10/25 -- follow Orthopedics consult pending, possible I&D this afternoon pending availability NPO, IVF w/ LR @80cc/hr while npo (Echo EF 55-60%) Pain control, elevation Continue warm soaks w/ half NSS/Peroxide q shift for 10 minutes ID consult pending Monitor exam/labs on repeat #MM/MDS MM diagnosed 09/2023, MDS 09/26/2024 - on a 28-day course w 5 days on chemo, 3 wks off. Follows with heme/onc, most recent visit day of arrival 10/24/2024 and was to start chemo day of arrival which did not occur, CBC w/ stable WBC compared to prior Zofran available as needed, pain control for above Remains on Acyclovir BID and abx as outlined Pt's oncologist (Dr. Lewis) consulted regarding chemotherapy - not yet seen #HTN BP controlled and remains on lisinopril 10mg daily Monitor DVT proph: SCDs ordered, chemoproph pending OR (if not going til tomorrow consider one time Lovenox SQ vs post-op pending cleance w/ orthopedics) Admission and Anticipated Discharge Date Admission Date: October 24, 2024 Supervising Physician Co-Signing Physician Notes The patient was not seen by me. The chart was reviewed. Case discussed with YULY Wiggins. Agree with assessment and plan Subjective Eval this morning, sitting up in bed. Pain controlled, rating 2/10 at present. Was seen by orthopedic PA, hopeful OR later this evening pending ability to squeeze her in. Remains NPO. Had some faint streaking up her arm this morning, appears improved on exam and will continue to monitor. Discussed to alert of any increased pain/redness/streaking but will continue on IV abx at this time/blood cx pending. Ortho PA able to express some discharge from wound this morning and has been sent for cx. ID consult pending. Oncology consult pending but not yet seen. Questions/concerns addressed at this time. Physical Exam 2 Physical Exam: General: 78yo female sitting up in bed, NAD HEENT: head atraumatic, normocephalic, L port site c/d/i Resp: even/unlabored, no wheezing/rales CV: RRR, no significant m/r/g, no pitting edema GI; +BS, soft/NT no zheng MSK/Neuro: dressing to RIGHT hand/thumb, wound w/ scant purulent discharge, ROM intact (slight decrease secondary to swelling), slight streaking to wrist (improved on exam), radial pulse present Psych: AOx3, cooperative with exam Results & Data Results & Data Vital Signs (Past 12 Hours) Vital Signs Temp Pulse Pulse Resp BP BP Pulse Ox 10/25/24 07:52 36.6 C 56 L 14 144/79 H 96 10/25/24 07:44 36.6 C 73 16 133/74 94 10/24/24 20:53 36.6 C 77 16 154/83 H 93 10/24/24 20:29 76 20 148/89 H 94 O2 Del Method 10/25/24 07:52 Room Air 10/25/24 07:44 Room Air 10/24/24 20:53 Room Air 10/24/24 20:29 Room Air Laboratory Results 10/25/24 07:45 10/25/24 07:45 CRP 6.9 LDH 281 Procal 0.[address] 10/24/24 16:30 CT right hand with and without contrast History: Dog bite Comparison: None Technique: CT performed of the right hand with and without IV contrast. Dose reduction techniques were achieved by using automatic exposure control and/or adjustment of mA and/or kV according to patient size and/or use of iterative reconstruction technique. Findings: No fracture or dislocation. Joint spaces are normally aligned. There is severe osteoarthritis at the first carpometacarpal joint. A soft tissue laceration is seen near the base of the thumb, where there is an area of subcutaneous free fluid, without focal fluid collection. Edema extends along the length of the thumb distally, and proximally to approximately the level of the wrist, without significant extension into the forearm. No visualized abscesses. No aggressive osseous lesion. Impression: Soft tissue laceration seen near the base of the thumb, with subcutaneous edema extending distally throughout the thumb, and proximally to the level of the wrist without significant extension into the forearm. No abscess. No underlying bony abnormality. Osteoarthritis. Electronically signed by Nick Hoang 10-24-2024 5:23 PM PG Care Time/CCT Total # of Minutes Spent Total Time Spent with Patient: Total time spent is greater than 50% in coordination of care (as documented) at patient's floor/unit and/or counseling patient: Coding Level of Care Code 25598 SUB INP/OBS CARE 3/50MIN Diagnoses Cellulitis L03.113 Laterality: right Site of cellulitis: extremity Site of cellulitis of extremity: upper extremity Dog bite W54.0XXA Encounter type: initial encounter Multiple myeloma, remission status unspecified C90.00 Multiple myeloma remission status: unspecified MDS (myelodysplastic syndrome) D46.9 (1) Cellulitis Laterality: right Site of cellulitis: extremity Site of cellulitis of extremity: upper extremity Qualified Code(s): L03.113 - Cellulitis of right upper limb (2) Dog bite Encounter type: initial encounter Qualified Code(s): W54.0XXA - Bitten by dog, initial encounter (3) Multiple myeloma Multiple myeloma remission status: unspecified Qualified Code(s): C90.00 - Multiple myeloma not having achieved remission
[2024-10-25 09:16] LABS: Hematocrit (blood only) 27.2 % (37.0-47.0); Hemoglobin 8.6 g/dl (12.0-16.0)
[2024-10-25 09:17] LABS: Mean Corpuscular Hemoglobin 29.1 pg (25.0-34.0); Mean Corpuscular Hgb Conc 31.6 g/dL (32.0-36.0); Mean Corpuscular Volume 91.9 fL (80.0-100.0); RDW Coefficient of Variation 17.5 % (11.5-14.5); RDW Standard Deviation 53.7 fL (36.4-46.3); Red Blood Count 2.96 M/uL (4.20-5.40)
--- NOTE | 2024-10-25 09:17 | Infectious Disease Consult ---
Date of Consultation October 25, 2024 Assessment & Plan (1) Cellulitis: (2) Dog bite: (3) Multiple myeloma: (4) MDS (myelodysplastic syndrome): Plan 78yo F with h/o MDS/MM on chemo (per chart, she is on monthly daralex, last dose 10/12, was planned for decitabine 10/24), chest port, right breast cancer 1997 s/p lumpectomy and chemo/XRT, HTN, and anemia who presented on 10/24 with a right thumb wound. On 10/20 she was playing with her dog when she went to throw a toy and the dog accidentally bit her hand. She was seen at oncology appointment for chemo, but sent her to the ED. Dog is up-to-date on vaccines, patient has had her tetanus shot. On admission, she was afebrile, vss. Initial labs with WBC 7.18, Cr 0.54, ALT 58. Lactate 1.2. ESR 25, CRP 6.91. PCT 0.17. CT hand with soft tissue laceration seen near the base of the thumb, with subcu edema extending distally throughout the thumb, and proximally to the level of the wrist without significant extension into the forearm; no abscess; no underlying bony abnormality. She has received unasyn. ID consulted 10/25. Given immunocompromise and purulent drainage, Im going to add vancomycin for empiric MRSA coverage until this can be ruled out. Blood cx are in process. # Right hand cellulitis and wound in setting of dog bite # MDS/MM on chemo # Chest port - ordered MRSA screen - Tammi added vancomycin pharmacy dosed protocol empirically for now - continue Unasyn 3g IV q6h - wound care - f/u cultures - ppx: on acyclovir Will continue to follow. If questions or concerns, contact via [facility] [employer] or Infectious Disease Call Center . Saritha Ling MD [facility], Division of Infectious Diseases Consultation Information Consultation was provided via telemedicine using two-way real-time interactive telecommunication between the patient and the telemedicine provider. For the duration of the visit, the provider was performing the assessment from a different facility than the patient. This includesuse of bluetooth stethoscope forauscultationperformed by the telepresenter that the telemedicine provider can hear if described in the physical exam. [employer] contact information: Please call [facility] Call Center . (Phone Number For Physician Use Only) After establishing a telemedicine visit, patient was: Patient was verified with two unique identifiers, Patient/authorized rep acknowledged consent and understanding and Gave permission to continue telehealth session Time Spent with Patient: Initial => 75 min History of Present Illness Reason for Consultation: Cellulitis, dog wound bite, immunocompromised Attending Physician: Chas Chand MD History of Present Illness 78yo F with h/o MDS/MM on chemo (per chart, she is on monthly daralex, last dose 10/12, was planned for decitabine 10/24), chest port, right breast cancer 1997 s/p lumpectomy and chemo/XRT, HTN, and anemia who presented on 10/24 with a right thumb wound. On 10/20 she was playing with her dog when she went to throw a toy and the dog bit her hand. She did not seek medical attention and just iced the area. The area started becoming more red, painful, and with yellow discharge one day [employer]. She was seen at oncology appointment for chemo, but provider sent her to the ED. She reported some numbness in the thumb but with full ROM. Dog is up-to-date on vaccines, patient has had her tetanus shot. No fevers or chills. O n admission, she was afebrile, vss. Initial labs with WBC 7.18, Cr 0.54, ALT 58. Lactate 1.2. ESR 25, CRP 6.91. PCT 0.17. CT hand with soft tissue laceration seen near the base of the thumb, with subcu edema extending distally throughout the thumb, and proximally to the level of the wrist without significant extension into the forearm; no abscess; no underlying bony abnormality. She has received unasyn. ID consulted 10/25. On evaluation, patient reports that hand started getting red and swollen on Thursday evening. No recent abx use. No abdominal pain, vomiting, diarrhea. Allergies Allergy/AdvReac Type Severity Reaction Status Date / Time oxytocin Allergy Unknown extreme Verified 10/17/24 07:00 cramping Sulfa (Sulfonamide Allergy Unknown HIVES Verified 10/17/24 07:00 Antibiotics) sulfamethoxazole Allergy Hives Verified 10/17/24 07:00 Influenza Virus Vaccines AdvReac PMR Verified 10/17/24 07:00 Home Medications Medication Instructions Recorded Confirmed Type ascorbic acid (vitamin C) 500 mg 500 mg PO DAILY 12/31/23 10/24/24 History tablet (Vitamin C) calcium 600 mg (as carbonate)-vit 1 tab PO DAILY 12/31/23 10/24/24 History D3 20 mcg (800 unit) chewable tablet (Caltrate plus D) [id number] 8 mg-folic 400 1 tab PO DAILY 12/31/23 10/24/24 History mcg-K 50 mcg-lutein 300 mcg tablet (Centrum Silver Women) aspirin 81 mg tablet,delayed 81 mg PO DAILY 03/05/24 10/24/24 History release cyanocobalamin (vitamin B-12) 1,000 mcg PO DAILY 03/05/24 10/24/24 History 1,000 mcg tablet (Vitamin B-12) mometasone 50 mcg/actuation nasal 2 spray intranasal DAILY PRN 03/05/24 10/24/24 History spray Congestion omega 5-mal-ebf-fish oil 1,000 mg 1 cap PO DAILY 03/05/24 10/24/24 History (120 mg-180 mg) capsule (Fish Oil) ondansetron 8 mg disintegrating 8 mg PO Q8H PRN Nausea And Vomiting 03/05/24 10/24/24 History tablet prochlorperazine maleate 10 mg 10 mg PO Q6H PRN Nausea And 03/05/24 10/24/24 History tablet Vomiting vitamin A-vitamin C-vit E-min 1 tab PO DAILY 03/05/24 10/24/24 History tablet vitamin E 268 mg (400 unit) capsule 268 mg PO DAILY 03/05/24 10/24/24 History acyclovir 400 mg tablet 400 mg PO BID 07/14/24 10/24/24 History lisinopril 10 mg tablet 10 mg PO QAM 09/26/24 10/24/24 History lidocaine-prilocaine 2.5 %-2.5 % 1 applic topical UD 10/24/24 10/24/24 History topical cream Patient History Medical History Multiple myeloma dx 09/2023, currently in remission Monoclonal gammopathy of unknown significance (MGUS) MDS (myelodysplastic syndrome) 09/26/24, currently having a full week of chemo this week Emphysema lung Benign essential hypertension History of anemia Right lower lobe pulmonary nodule History of pneumonia 02/2024, no residual symptoms History of tobacco use Sepsis hx, 02/2024, w/pneumonia Hx of breast cancer dx 1996, 4 rounds go chemo prior to sx, aug 1997 6 xrt treatments Surgical History Port-A-Cath in place (10/03/24) Insertion of Access Port with Fluoroscopy(Left) - Tomi Zuniga DO History of dilatation and curettage (1971) History of open reduction and internal fixation (ORIF) procedure (1956) right fibula Hx of colonoscopy Hx of bilateral cataract extraction History of bone marrow biopsy most recent 07/2024 Hx of repair of right rotator cuff (2013) Hx of nasal septoplasty (2002) Hx of vaginal hysterectomy 12/1992 History of lumpectomy of right breast 1996 S/P hernia surgery 05/1978, left inguinal 01/1984, left arterial hernia Family History Mother Breast cancer Father Myocardial infarction Hypertension Grandmother Cancer Denies family history of Ovarian cancer Prostate cancer Colorectal cancer Social History Smoking Status: Former smoker Tobacco Type: Cigarettes Age Started Using Tobacco: 19; Age Quit Using Tobacco: 39; packs per day: 1; Cigarettes Per Day: A pack a day.; Smoking End Date: 40 years ago.; Second Hand Exposure: No; Do You Dip or Chew Tobacco: No; Tobacco Cessation Education Requested by Patient: No Hx Alcohol Use: Yes Alcohol type: wine Alcohol Intake Frequency: 2-3 x/Week Hx Substance Use: No Preferred Language: Cypriot Communication Ability: Effective Visual Impairment: Partially Limited Hearing Ability: Normal [employer] Required: No Beliefs That Will Affect Care: None marital status: Current Living Situation: Spouse current occupational status: retired How many Children do You have: 2 Other Information That Helps Us Care for You: No Feels Safe at Home: Yes Safety Concerns: Feels Safe At This Time Childhood Exposure to Second-Hand Smoke: Yes Diet: regular caffeine: Yes during the past year weight has: remained stable Dental Care, Regularly: Yes Physical Activity Frequency: Daily Seatbelt Use: always Sunscreen Use: Yes Assistive Devices: Glasses and Hospital Bed Assistive Devices Comment: Glasses are "readers". Review of System 10-point review of systems reviewed and are negative except for as above. Physical Exam Physical Exam: General: Awake, alert, no acute distress HEENT: NC/AT, EOMI, mmm Neck: supple Lungs: respirations non-labored Heart: nl peripheral perfusion Abdomen: soft, NT/ND Ext: right base of thumb with purulent drainage, erythema over back of hand, swelling Skin: as above Neuro: moving all extremities Results & Data Vital Signs (Past 12 Hours) Vital Signs Temp Pulse Resp BP Pulse Ox O2 Del Method 10/25/24 07:52 36.6 C 56 L 14 144/79 H 96 Room Air 10/25/24 07:44 36.6 C 73 16 133/74 94 Room Air Laboratory Results Labs reviewed. Diagnostic Findings Imaging reviewed. (1) Cellulitis Laterality: right Site of cellulitis: extremity Site of cellulitis of extremity: upper extremity Qualified Code(s): L03.113 - Cellulitis of right upper limb (2) Dog bite Encounter type: initial encounter Qualified Code(s): W54.0XXA - Bitten by dog, initial encounter (3) Multiple myeloma Multiple myeloma remission status: unspecified Qualified Code(s): C90.00 - Multiple myeloma not having achieved remission
[2024-10-25 09:18] LABS: BUN Creatinine Ratio 16.7 (10-20); Calcium 8.6 mg/dl (8.6-10.3); Creatinine Clr Calc Pharmacy 77.2 ml/min
[2024-10-25 09:34] LABS: Mean Platelet Volume 13.2 fL (9.4-12.4); Platelet Count 615 K/uL (130-400)
[2024-10-25 09:35] LABS: White Blood Count 4.99 K/ul (4.8-10.8)
[2024-10-25] MEDS ORDERED: VANCOMYCIN CONSULT ACTIVE PRN (09:47)
--- NOTE | 2024-10-25 10:46 | Orthopedic Consultation ---
Date of Consultation October 25, 2024 Assessment & Plan (1) Dog bite of right hand including fingers with infection: Dog bite appears to be infected with warmth, redness, swelling, lymphatic streaking, and purulent drainage. I was able to express some pus this morning and a culture was obtained. Results may be skewed as she has already been started on antibiotics (Unasyn). Infectious diseases adding vancomycin until cultures result given purulent drainage. Patient with focal tenderness about the wound however no severe pain when stressing the extensor tendon which is reassuring. Her tetanus has not been updated since 2016 so this was ordered. Dog is up-to-date on rabies vaccine. Patient is currently n.p.o. Dr. Krishnamurthy will be seeing the patient shortly to determine if formal I&D in the OR is indicated. She has been preemptively added to the OR schedule today. Continue to keep n.p.o. and hold aspirin for now. The risks and benefits of this procedure and surgery in general was discussed with the patient at length and informed consent was completed with the patient at the bedside and is on chart. Continue soaks for now. If surgery was deferred, will provide wound care recommendations. Continue antibiotics for now. Pain medication per primary service. Supervising Physician Co-Signing Physician Notes I, Dr. Krishnamurthy, saw and examined the patient and agree with the above findings and plan of care that I developed and discussed with my PA. Continue NPO, IV Abx. Plan on taking to the OR later today for I&D right Thumb. Risks and benefits discussed, patient is in agreement to proceed with surgery. History of Present Illness Reason for Consultation: Dog Bite right thumb Requesting Physician: Myah Krishnamurthy MD Attending Physician: Chas Chand MD History of Present Illness Yoanna is a [id number] 78-year-old female with a history of myelodysplastic syndrome, multiple myeloma, anemia, follows with oncology, who presented to the emergency department yesterday concerned about an infection in her right hand secondary to a dog bite. Patient was bitten by her dog on accident while it was playing with her on 10/20/2024. She noticed redness, swelling, and pain yesterday and was referred to the emergency department by her oncologist. In the emergency department, the patient had lab work showing stable anemia, no leukocytosis. ESR 25, CRP 6.91, Pro-Vikas 0.17. Blood cultures pending. Hand CT showed a soft tissue laceration with soft tissue swelling about the thumb extending to the level of the wrist. There was no abscess identified. No underlying bony abnormality. She was given Unasyn 3 g. Patient was subsequently admitted and orthopedics was consulted. Warm soaks with half normal saline and peroxide were recommended. She was kept n.p.o. and her aspirin was held. Patient seen in bed this morning. She states that her pain is manageable. She has not had any fevers or chills and feels fine otherwise. Her dog's rabies is up-to-date (expires 2026). She states that the range of motion in her thumb is reduced because of swelling but range of motion is not excruciating. She feels numb where the wound is located but the tip of her thumb does not feel numb. Ankush byrd has no history of injuring this hand or thumb in the past, no prior surgeries to this hand or wrist. Allergies Allergy/AdvReac Type Severity Reaction Status Date / Time oxytocin Allergy Unknown extreme Verified 10/17/24 07:00 cramping Sulfa (Sulfonamide Allergy Unknown HIVES Verified 10/17/24 07:00 Antibiotics) sulfamethoxazole Allergy Hives Verified 10/17/24 07:00 Influenza Virus Vaccines AdvReac PMR Verified 10/17/24 07:00 Home Medications Medication Instructions Recorded Confirmed Type ascorbic acid (vitamin C) 500 mg 500 mg PO DAILY 12/31/23 10/24/24 History tablet (Vitamin C) calcium 600 mg (as carbonate)-vit 1 tab PO DAILY 12/31/23 10/24/24 History D3 20 mcg (800 unit) chewable tablet (Caltrate plus D) falogiig-aunp-ltas 8 mg-folic 400 1 tab PO DAILY 12/31/23 10/24/24 History mcg-K 50 mcg-lutein 300 mcg tablet (Centrum Silver Women) aspirin 81 mg tablet,delayed 81 mg PO DAILY 03/05/24 10/24/24 History release cyanocobalamin (vitamin B-12) 1,000 mcg PO DAILY 03/05/24 10/24/24 History 1,000 mcg tablet (Vitamin B-12) mometasone 50 mcg/actuation nasal 2 spray intranasal DAILY PRN 03/05/24 10/24/24 History spray Congestion omega 0-ven-zse-fish oil 1,000 mg 1 cap PO DAILY 03/05/24 10/24/24 History (120 mg-180 mg) capsule (Fish Oil) ondansetron 8 mg disintegrating 8 mg PO Q8H PRN Nausea And Vomiting 03/05/24 10/24/24 History tablet prochlorperazine maleate 10 mg 10 mg PO Q6H PRN Nausea And 03/05/24 10/24/24 History tablet Vomiting vitamin A-vitamin C-vit E-min 1 tab PO DAILY 03/05/24 10/24/24 History tablet vitamin E 268 mg (400 unit) capsule 268 mg PO DAILY 03/05/24 10/24/24 History acyclovir 400 mg tablet 400 mg PO BID 07/14/24 10/24/24 History lisinopril 10 mg tablet 10 mg PO QAM 09/26/24 10/24/24 History lidocaine-prilocaine 2.5 %-2.5 % 1 applic topical UD 10/24/24 10/24/24 History topical cream Patient History Medical History Multiple myeloma dx 09/2023, currently in remission Monoclonal gammopathy of unknown significance (MGUS) MDS (myelodysplastic syndrome) 09/26/24, currently having a full week of chemo this week Emphysema lung Benign essential hypertension History of anemia Right lower lobe pulmonary nodule History of pneumonia 02/2024, no residual symptoms History of tobacco use Sepsis hx, 02/2024, w/pneumonia Hx of breast cancer dx 1996, 4 rounds go chemo prior to sx, aug 1997 6 xrt treatments Surgical History Port-A-Cath in place (10/03/24) Insertion of Access Port with Fluoroscopy(Left) - Tomi Zuniga DO History of dilatation and curettage (1971) History of open reduction and internal fixation (ORIF) procedure (1956) right fibula Hx of colonoscopy Hx of bilateral cataract extraction History of bone marrow biopsy most recent 07/2024 Hx of repair of right rotator cuff (2013) Hx of nasal septoplasty (2002) Hx of vaginal hysterectomy 12/1992 History of lumpectomy of right breast 1996 S/P hernia surgery 05/1978, left inguinal 01/1984, left arterial hernia Family History Mother Breast cancer Father Myocardial infarction Hypertension Grandmother Cancer Denies family history of Ovarian cancer Prostate cancer Colorectal cancer Social History Smoking Status: Former smoker Tobacco Type: Cigarettes Age Started Using Tobacco: 19; Age Quit Using Tobacco: 39; packs per day: 1; Cigarettes Per Day: A pack a day.; Smoking End Date: 40 years ago.; Second Hand Exposure: No; Do You Dip or Chew Tobacco: No; Tobacco Cessation Education Requested by Patient: No Hx Alcohol Use: Yes Alcohol type: wine Alcohol Intake Frequency: 2-3 x/Week Hx Substance Use: No Preferred Language: Nepalese Communication Ability: Effective Visual Impairment: Partially Limited Hearing Ability: Normal Landfill Grader Required: No Beliefs That Will Affect Care: None marital status: Current Living Situation: Spouse current occupational status: retired How many Children do You have: 2 Other Information That Helps Us Care for You: No Feels Safe at Home: Yes Safety Concerns: Feels Safe At This Time Childhood Exposure to Second-Hand Smoke: Yes Diet: regular caffeine: Yes during the past year weight has: remained stable Dental Care, Regularly: Yes Physical Activity Frequency: Daily Seatbelt Use: always Sunscreen Use: Yes Assistive Devices: Glasses and Hospital Bed Assistive Devices Comment: Glasses are "readers". Physical Exam Constitutional: Sitting upright in bed. Pleasant. Resting comfortably no distress. Cardiovascular: Right radial pulse 2+ Musculoskeletal: Right upper extremity: There is a laceration to the dorsal aspect of the thumb beginning at the base of the proximal phalanx extending onto the first metacarpal region. There is warmth and surrounding erythema extending to the radial wrist. There is faint lymphatic streaking extending to the distal third of the forearm. Palpation of the immediate area surrounding the laceration is quite tender to palpation. Able to express malodor and purulent drainage into the wound bed when palpating just distal to the laceration. Thenar eminence is swollen but not red or tender. Able to initiate thumb extension and opposition to little finger however range of motion is significantly reduced secondary to swelling. Able to fire flexion and extension at the interphalangeal joint of the thumb. Wrist range of motion with flexion extension radial and ulnar deviation is full with no pain. No pain with axial load of the thumb. No severe pain with passive hyperflexion of the thumb at the PIP joint. Capillary refill in the thumb is less than 2 seconds. Neurologic: No sensory deficits in bilateral distal thumbs to light touch Results & Data Vital Signs (Past 12 Hours) Vital Signs Temp Pulse Resp BP Pulse Ox O2 Del Method 10/25/24 07:52 97.9 F 56 L 14 144/79 H 96 Room Air 10/25/24 07:44 97.9 F 73 16 133/74 94 Room Air Laboratory Results 10/25/24 09:00 Gram Stain - Pending Hand,Right Aerobic and Anaerobic Culture - Pending 10/24/24 17:09 Aerobic Blood Culture - Pending Blood Anaerobic Blood Culture - Pending 10/24/24 17:09 Aerobic Blood Culture - Pending Blood Anaerobic Blood Culture - Pending 10/25/24 10/24/24 10/24/24 07:45 17:09 15:42 WBC 4.99 7.18 RBC 2.96 L 3.15 L Hgb 8.6 L 9.1 L Hct 27.2 L 28.3 L MCV 91.9 89.8 MCH 29.1 28.9 MCHC 31.6 L 32.2 RDW Std Deviation 53.7 H 51.6 H RDW Coeff of Juan 17.5 H 17.7 H Plt Count 615 H 654 H MPV 13.2 H 13.3 H Immature Gran % (Auto) 0.0 Neut % (Auto) 59.3 Lymph % (Auto) 28.4 [place] % (Auto) 11.7 Eos % (Auto) 0.3 Baso % (Auto) 0.3 Neut # (Auto) 4.26 Lymph # (Auto) 2.04 [place] # (Auto) 0.84 H Eos # (Auto) 0.02 Baso # (Auto) 0.02 Immature Gran # (Auto) 0.00 L Hypogranular Neuts 3+ Giant Platelets 1+ Polychromasia 1+ ESR 25 Sodium 140 136 Potassium 4.0 3.9 Chloride 105 102 Carbon Dioxide 32 31 Anion Gap 3 3 BUN 8 16 Creatinine 0.48 L 0.54 L Est Cr Clr Drug Dosing 77.2 68.0 eGFR 96.29 93.60 BUN/Creatinine Ratio 16.7 29.6 H Glucose 115 H 167 H Lactate 1.2 Calcium 8.6 8.8 Total Bilirubin 0.8 AST 28 ALT 58 H Alkaline Phosphatase 86 C-Reactive Protein 6.91 H Total Protein 6.1 Albumin 3.9 Globulin 2.2 L Albumin/Globulin Ratio 1.8 Procalcitonin 0.[address] 10/24/24 16:30 CT right hand with and without contrast History: Dog bite Comparison: None Technique: CT performed of the right hand with and without IV contrast. Dose reduction techniques were achieved by using automatic exposure control and/or adjustment of mA and/or kV according to patient size and/or use of iterative reconstruction technique. Findings: No fracture or dislocation. Joint spaces are normally aligned. There is severe osteoarthritis at the first carpometacarpal joint. A soft tissue laceration is seen near the base of the thumb, where there is an area of subcutaneous free fluid, without focal fluid collection. Edema extends along the length of the thumb distally, and proximally to approximately the level of the wrist, without significant extension into the forearm. No visualized abscesses. No aggressive osseous lesion. Impression: Soft tissue laceration seen near the base of the thumb, with subcutaneous edema extending distally throughout the thumb, and proximally to the level of the wrist without significant extension into the forearm. No abscess. No underlying bony abnormality. Osteoarthritis. Electronically signed by Nick Hoang 10-24-2024 5:23 PM (1) Dog bite of right hand including fingers with infection Encounter type: initial encounter Qualified Code(s): S61.451A - Open bite of right hand, initial encounter; S61.259A - Open bite of unspecified finger without damage to nail, initial encounter; L08.9 - Local infection of the skin and subcutaneous tissue, unspecified; W54.0XXA - Bitten by dog, initial encounter
--- NOTE | 2024-10-25 11:01 | Pharmacy Report ---
Pharmacy PK ABX Note - Date of Service October 25, 2024 - Assessment and Plan Assessment 78 year old F receiving IV Vancomycin + Unasyn for treatment of hand cellulitis with purulent discharge d/t dog bite. Cultures pending. WBC wnl, afebrile. Immunocompromised. Day # 1 of antimicrobial therapy. Plan Vancomycin * Loading dose: 1500 mg IV x 1 * Maintenance dose: 1000 mg IV every 12 hours * Regimen is predicted to achieve target AUC/JAMIL of 400-600 mg/L.hr * Will draw level if therapy continues > 48H Unasyn 3g IV Q6H Pharmacy will continue to follow and will adjust dose/frequency as necessary. Thank you. Pharmacy has transitioned to AUC monitoring for vancomycin. AUC/JAMIL is the preferred PK/PD target and is associated with decreased risk of nephrotoxicity compared to traditional trough targets.
[2024-10-25] MEDS: VANCOMYCIN HCL 1,500 MG in SODIUM CHLORIDE 0.9% 500 ML IV ONE (11:20)
[2024-10-25] MEDS: DIPHTHER/TETAN/PERTUS Vaccine (Tdap, Adol/Adult) 0.5mL IM ONE (11:34)
--- NOTE | 2024-10-25 11:43 | Electrocardiogram Report ---
Test Reason : Blood Pressure : */* mmHG Vent. Rate : 76 BPM Atrial Rate : 76 BPM P-R Int : 152 ms QRS Dur : 84 ms QT Int : 380 ms P-R-T Axes : 24 24 63 degrees QTcB Int : 427 ms Normal sinus rhythm When compared with ECG of 05-Mar-2024 15:05, No significant change was found Confirmed by Nick Flood ([id number] on 10/25/2024 11:43:33 AM Referred By: REFERRED SELF Confirmed By: Nick Flood
[2024-10-25] MEDS ORDERED: MIDAZOLAM HCL 1 MG/ML 2ML VIAL ONE (12:50)
[2024-10-25] MEDS ORDERED: LIDOCAINE 2% 2 ML VIAL/AMP(20MG/ML) INFIL ONE (12:50)
[2024-10-25] MEDS ORDERED: PROPOFOL IV EMULSION 10 MG/ML 20 ML VIAL IV ONE (12:50)
[2024-10-25] MEDS ORDERED: fentaNYL citrate PF 100 MCG/2 ML VIAL ONE (12:51)
[2024-10-25] MEDS ORDERED: ONDANSETRON INJ 2 MG/ML 2 ML VIAL ONE (12:53)
[2024-10-25] MEDS ORDERED: DEXAMETHASONE SOD INJ 4 MG/ML VIAL ONE (12:53)
--- NOTE | 2024-10-25 13:43 | Anesthesiology Consultation ---
Date of Service October 25, 2024 Assessment & Plan Consults Requested medical & cardiac Pulmonary ASA ASA3 Proposed Anesthesia Anesthesia Type: General Risk / Benefits Reviewed With: PT / POA / Parent / Guardian, Accepts Plan and Informed Consent Obtained History Surgery Operation Date: 10/25/24 08:40 Proposed Procedures p Right Hand Infection Incision, Drainage and Debridement - Sea Korina Krishnamurthy MD Height/Weight Height: 4 ft 10 in Weight: 67.3 kg Allergies Allergy/AdvReac Type Severity Reaction Status Date / Time oxytocin Allergy Unknown extreme Verified 10/17/24 07:00 cramping Sulfa (Sulfonamide Allergy Unknown HIVES Verified 10/17/24 07:00 Antibiotics) sulfamethoxazole Allergy Hives Verified 10/17/24 07:00 Influenza Virus Vaccines AdvReac PMR Verified 10/17/24 07:00 Medications Home Medications Medication Instructions Recorded Confirmed Last Taken ascorbic acid (vitamin C) 500 mg 500 mg PO DAILY 12/31/23 10/24/24 1 Week Ago tablet (Vitamin C) ~09/26/24 calcium 600 mg (as carbonate)-vit 1 tab PO DAILY 12/31/23 10/24/24 1 Week Ago D3 20 mcg (800 unit) chewable ~09/26/24 tablet (Caltrate plus D) cetvuzwo-gdze-vocc 8 mg-folic 400 1 tab PO DAILY 12/31/23 10/24/24 1 Week Ago mcg-K 50 mcg-lutein 300 mcg tablet ~09/26/24 (Centrum Silver Women) aspirin 81 mg tablet,delayed 81 mg PO DAILY 03/05/24 10/24/24 1 Week Ago release ~09/26/24 cyanocobalamin (vitamin B-12) 1,000 mcg PO DAILY 03/05/24 10/24/24 1 Week Ago 1,000 mcg tablet (Vitamin B-12) ~09/26/24 mometasone 50 mcg/actuation nasal 2 spray intranasal DAILY PRN 03/05/24 10/24/24 1 Month Ago spray Congestion ~09/05/24 omega 4-ptg-vaf-fish oil 1,000 mg 1 cap PO DAILY 03/05/24 10/24/24 1 Week Ago (120 mg-180 mg) capsule (Fish Oil) ~09/26/24 ondansetron 8 mg disintegrating 8 mg PO Q8H PRN Nausea And Vomiting 03/05/24 10/24/24 Unknown tablet prochlorperazine maleate 10 mg 10 mg PO Q6H PRN Nausea And 03/05/24 10/24/24 Unknown tablet Vomiting vitamin A-vitamin C-vit E-min 1 tab PO DAILY 03/05/24 10/24/24 1 Week Ago tablet ~09/26/24 vitamin E 268 mg (400 unit) capsule 268 mg PO DAILY 03/05/24 10/24/24 1 Week Ago ~09/26/24 acyclovir 400 mg tablet 400 mg PO BID 07/14/24 10/24/24 10/02/24 22:00 lisinopril 10 mg tablet 10 mg PO QAM 09/26/24 10/24/24 10/03/24 06:30 lidocaine-prilocaine 2.5 %-2.5 % 1 applic topical UD 10/24/24 10/24/24 Unknown topical cream Active Medications Generic Name Dose Route Start Last Admin Trade Name Freq PRN Reason Stop Dose Admin Acetaminophen 650 mg 10/24/24 20:57 10/25/24 07:40 Acetaminophen 325 Mg Tab PO 11/23/24 20:56 650 mg Q4H PRN Administration pain/fever Acyclovir 400 mg 10/24/24 21:00 10/25/24 07:45 Acyclovir 400 Mg Tab PO 11/23/24 20:59 400 mg BID ARJUN Administration Ampicillin Sodium/Sulbactam Sodium 3,000 mg in 100 mls @ 200 mls/hr 10/25/24 00:00 10/25/24 11:58 Unasyn IV 11/01/24 00:00 Infused Q6H ARJUN Infusion Lactated Ringer's 1,000 mls @ 80 mls/hr 10/25/24 04:00 10/25/24 04:00 Lr IV 10/26/24 03:59 80 mls/hr .[id number] ARJUN Administration Lisinopril 10 mg 10/25/24 09:00 10/25/24 07:45 Lisinopril 10 Mg Tab PO 11/24/24 08:59 10 mg QAM ARJUN Administration NPO Date Last Intake of Fluids: 10/25/24 Time Last Intake of Fluids: 07:45 Last Intake of Fluids Comment: sip with AM meds Date Last Intake of Solids: 10/24/24 Time Last Intake of Solids: 20:00 Past Medical History Medical History Multiple myeloma dx 09/2023, currently in remission Monoclonal gammopathy of unknown significance (MGUS) MDS (myelodysplastic syndrome) 09/26/24, currently having a full week of chemo this week Emphysema lung Benign essential hypertension History of anemia Right lower lobe pulmonary nodule History of pneumonia 02/2024, no residual symptoms History of tobacco use Sepsis hx, 02/2024, w/pneumonia Hx of breast cancer dx 1996, 4 rounds go chemo prior to sx, jul/aug 1997 6 xrt treatments Exercise / Class Metabolic Activity II 4-5 Yardwork/Stairs/Walk up hill Past Family History Family History Mother Breast cancer Father Myocardial infarction Hypertension Grandmother Cancer Denies family history of Ovarian cancer Prostate cancer Colorectal cancer Past Surgical History Surgical History Port-A-Cath in place (10/03/24) Insertion of Access Port with Fluoroscopy(Left) - Tomi Zuniga, History of dilatation and curettage (1971) History of open reduction and internal fixation (ORIF) procedure (1956) right fibula Hx of colonoscopy Hx of bilateral cataract extraction History of bone marrow biopsy most recent 07/2024 Hx of repair of right rotator cuff (2013) Hx of nasal septoplasty (2002) Hx of vaginal hysterectomy 12/1992 History of lumpectomy of right breast 1996 S/P hernia surgery 05/1978, left inguinal 01/1984, left arterial hernia Past Anesthesia History No Hx of Anesthesia Complications and No Family Hx of Anesthesia Complications History of PONV No Hx of PONV and No Hx of Motion Sickness Social History Smoking Status: Former smoker tobacco type: cigarettes Smoking cigarettes per day: A pack a day. Do You Dip or Chew Tobacco: No Smoking End Date: 40 years ago. Hx Alcohol Use: Yes Alcohol type: wine alcohol intake frequency: holidays/special occasions only Hx Substance Use: No substance use type: does not use Physical Exam Vital Signs Last Vital Signs Temp 36.6 C 10/25/24 13:16 Pulse 84 10/25/24 13:16 Resp 16 10/25/24 13:16 BP 153/90 H 10/25/24 13:16 Pulse Ox 96 10/25/24 13:16 O2 Del Method Room Air 10/25/24 13:16 Constitutional no acute distress ENMT Mouth: no dentition abnormality Thyromental Distance: > or= 3.5 Finger Breadths Mallampati Class: III Neck normal visual inspection Respiratory normal respiratory effort; no respiratory distress Auscultation: lungs clear to auscultation bilaterally Cardiovascular Rate/Rhythm: regular rate and regular rhythm Heart Sounds: no murmur Musculoskeletal Spine: normal cervical ROM Psychiatric Orientation: alert and oriented x 3 Testing Laboratory Results 10/25/24 07:45 10/25/24 07:45 10/25/24 09:00 Gram Stain - Final Hand,Right Day of Procedure Evaluation. Date of Surgery October 25, 2024 Height/Weight Height: 4 ft 10 in Weight: 67.3 kg Vital Signs Last Vital Signs Temp 36.6 C 10/25/24 13:16 Pulse 84 10/25/24 13:16 Resp 16 10/25/24 13:16 BP 153/90 H 10/25/24 13:16 Pulse Ox 96 10/25/24 13:16 O2 Del Method Room Air 10/25/24 13:16 Allergies Allergy/AdvReac Type Severity Reaction Status Date / Time oxytocin Allergy Unknown extreme Verified 10/17/24 07:00 cramping Sulfa (Sulfonamide Allergy Unknown HIVES Verified 10/17/24 07:00 Antibiotics) sulfamethoxazole Allergy Hives Verified 10/17/24 07:00 Influenza Virus Vaccines AdvReac PMR Verified 10/17/24 07:00 Medications Home Medications Medication Instructions Recorded Confirmed Last Taken ascorbic acid (vitamin C) 500 mg 500 mg PO DAILY 12/31/23 10/24/24 1 Week Ago tablet (Vitamin C) ~09/26/24 calcium 600 mg (as carbonate)-vit 1 tab PO DAILY 12/31/23 10/24/24 1 Week Ago D3 20 mcg (800 unit) chewable ~09/26/24 tablet (Caltrate plus D) nhuipecf-braq-vofw 8 mg-folic 400 1 tab PO DAILY 12/31/23 10/24/24 1 Week Ago mcg-K 50 mcg-lutein 300 mcg tablet ~09/26/24 (Centrum Silver Women) aspirin 81 mg tablet,delayed 81 mg PO DAILY 03/05/24 10/24/24 1 Week Ago release ~09/26/24 cyanocobalamin (vitamin B-12) 1,000 mcg PO DAILY 03/05/24 10/24/24 1 Week Ago 1,000 mcg tablet (Vitamin B-12) ~09/26/24 mometasone 50 mcg/actuation nasal 2 spray intranasal DAILY PRN 03/05/24 10/24/24 1 Month Ago spray Congestion ~09/05/24 omega 8-gjb-mpe-fish oil 1,000 mg 1 cap PO DAILY 03/05/24 10/24/24 1 Week Ago (120 mg-180 mg) capsule (Fish Oil) ~09/26/24 ondansetron 8 mg disintegrating 8 mg PO Q8H PRN Nausea And Vomiting 03/05/24 10/24/24 Unknown tablet prochlorperazine maleate 10 mg 10 mg PO Q6H PRN Nausea And 03/05/24 10/24/24 Unknown tablet Vomiting vitamin A-vitamin C-vit E-min 1 tab PO DAILY 03/05/24 10/24/24 1 Week Ago tablet ~09/26/24 vitamin E 268 mg (400 unit) capsule 268 mg PO DAILY 03/05/24 10/24/24 1 Week Ago ~09/26/24 acyclovir 400 mg tablet 400 mg PO BID 07/14/24 10/24/24 10/02/24 22:00 lisinopril 10 mg tablet 10 mg PO QAM 09/26/24 10/24/24 10/03/24 06:30 lidocaine-prilocaine 2.5 %-2.5 % 1 applic topical UD 10/24/24 10/24/24 Unknown topical cream Active Medications Generic Name Dose Route Start Last Admin Trade Name Freq PRN Reason Stop Dose Admin Acetaminophen 650 mg 10/24/24 20:57 10/25/24 07:40 Acetaminophen 325 Mg Tab PO 11/23/24 20:56 650 mg Q4H PRN Administration pain/fever Acyclovir 400 mg 10/24/24 21:00 10/25/24 07:45 Acyclovir 400 Mg Tab PO 11/23/24 20:59 400 mg BID ARJUN Administration Ampicillin Sodium/Sulbactam Sodium 3,000 mg in 100 mls @ 200 mls/hr 10/25/24 00:00 10/25/24 11:58 Unasyn IV 11/01/24 00:00 Infused Q6H ARJUN Infusion Lactated Ringer's 1,000 mls @ 80 mls/hr 10/25/24 04:00 10/25/24 04:00 Lr IV 10/26/24 03:59 80 mls/hr .[id number] ARJUN Administration Lisinopril 10 mg 10/25/24 09:00 10/25/24 07:45 Lisinopril 10 Mg Tab PO 11/24/24 08:59 10 mg QAM ARJUN Administration Past Anesthesia History No Hx of Anesthesia Complications and No Family Hx of Anesthesia Complications History of PONV No Hx of PONV and No Hx of Motion Sickness NPO Date Last Intake of Fluids: 10/25/24 Time Last Intake of Fluids: 07:45 Last Intake of Fluids Comment: sip with AM meds Date Last Intake of Solids: 10/24/24 Time Last Intake of Solids: 20:00 Home Medications Home Medications Medication Instructions Recorded Confirmed Last Taken ascorbic acid (vitamin C) 500 mg 500 mg PO DAILY 12/31/23 10/24/24 1 Week Ago tablet (Vitamin C) ~09/26/24 calcium 600 mg (as carbonate)-vit 1 tab PO DAILY 12/31/23 10/24/24 1 Week Ago D3 20 mcg (800 unit) chewable ~09/26/24 tablet (Caltrate plus D) lwacpuxd-chml-hdmt 8 mg-folic 400 1 tab PO DAILY 12/31/23 10/24/24 1 Week Ago mcg-K 50 mcg-lutein 300 mcg tablet ~09/26/24 ([facility] aspirin 81 mg tablet,delayed 81 mg PO DAILY 03/05/24 10/24/24 1 Week Ago release ~09/26/24 cyanocobalamin (vitamin B-12) 1,000 mcg PO DAILY 03/05/24 10/24/24 1 Week Ago 1,000 mcg tablet (Vitamin B-12) ~09/26/24 mometasone 50 mcg/actuation nasal 2 spray intranasal DAILY PRN 03/05/24 10/24/24 1 Month Ago spray Congestion ~09/05/24 omega 8-snl-pbm-fish oil 1,000 mg 1 cap PO DAILY 03/05/24 10/24/24 1 Week Ago (120 mg-180 mg) capsule (Fish Oil) ~09/26/24 ondansetron 8 mg disintegrating 8 mg PO Q8H PRN Nausea And Vomiting 03/05/24 10/24/24 Unknown tablet prochlorperazine maleate 10 mg 10 mg PO Q6H PRN Nausea And 03/05/24 10/24/24 Unknown tablet Vomiting vitamin A-vitamin C-vit E-min 1 tab PO DAILY 03/05/24 10/24/24 1 Week Ago tablet ~09/26/24 vitamin E 268 mg (400 unit) capsule 268 mg PO DAILY 03/05/24 10/24/24 1 Week Ago ~09/26/24 acyclovir 400 mg tablet 400 mg PO BID 07/14/24 10/24/24 10/02/24 22:00 lisinopril 10 mg tablet 10 mg PO QAM 09/26/24 10/24/24 10/03/24 06:30 lidocaine-prilocaine 2.5 %-2.5 % 1 applic topical UD 10/24/24 10/24/24 Unknown topical cream Active Medications Generic Name Dose Route Start Last Admin Trade Name Freq PRN Reason Stop Dose Admin Acetaminophen 650 mg 10/24/24 20:57 10/25/24 07:40 Acetaminophen 325 Mg Tab PO 11/23/24 20:56 650 mg Q4H PRN Administration pain/fever Acyclovir 400 mg 10/24/24 21:00 10/25/24 07:45 Acyclovir 400 Mg Tab PO 11/23/24 20:59 400 mg BID ARJUN Administration Ampicillin Sodium/Sulbactam Sodium 3,000 mg in 100 mls @ 200 mls/hr 10/25/24 00:00 10/25/24 11:58 Unasyn IV 11/01/24 00:00 Infused Q6H ARJUN Infusion Lactated Ringer's 1,000 mls @ 80 mls/hr 10/25/24 04:00 10/25/24 04:00 Lr IV 10/26/24 03:59 80 mls/hr .[id number] ARJUN Administration Lisinopril 10 mg 10/25/24 09:00 10/25/24 07:45 Lisinopril 10 Mg Tab PO 11/24/24 08:59 10 mg QAM ARJUN Administration Exercise / Class Metabolic Activity Metabolic Activity: II 4-5 Yardwork/Stairs/Walk up hill Physical Exam Constitutional: no acute distress Mouth: no dentition abnormality Thyromental Distance: > or= 3.5 Finger Breadths Mallampati Class: III Neck: + visual inspection normal Respiratory: + respiratory effort normal and + clear to auscultation bilaterally; no respiratory distress Cardiovascular: + regular rate and + regular rhythm; no murmur Musculoskeletal: no limited cervical ROM Psychiatric: + alert and + oriented x 3 ASA ASA3 Proposed Anesthesia Proposed Anesthesia: General Risk / Benefits Reviewed With: PT / POA / Parent / Guardian, Accepts Plan and Informed Consent Obtained
[2024-10-25] MEDS ORDERED: ePHEDrine sulfate 50 MG/ML AMP IV PRN (13:44)
[2024-10-25] MEDS ORDERED: ATROPINE SULFATE 0.1 MG/ML 10ML SYR IV PRN (13:44)
[2024-10-25] MEDS ORDERED: fentaNYL citrate PF 100 MCG/2 ML VIAL IV PRN (13:44)
[2024-10-25] MEDS ORDERED: PROMETHAZINE HCL 6.25 MG in SODIUM CHLORIDE 0.9% 50 ML IV PRN (13:44)
[2024-10-25] MEDS: LIDOCAINE 1% LOCAL 20 ML VIAL ONE (15:00)
[2024-10-25] MEDS: BUPIVACAINE 0.5 % 5 MG/1 ML MPF 30ML VIAL ONE (15:00)
[2024-10-25] MEDS: BUPIVACAINE/EPINEPHRINE 0.5% MPF 1:200,000 30 ML VIAL ONE (15:00)
--- NOTE | 2024-10-25 15:06 | Post Operative Brief Note ---
Immediate Post Op Note Date of Surgery October 25, 2024 Pre & Post Diagnosis Operation Date: 10/25/24 08:40 Pre-Op Diagnosis: right thumb infection Post-Op Diagnosis: right thumb infection I identified the patient and participated in the time-out.: Yes Procedure Operation Date: 10/25/24 08:40 Actual Procedures p Right Hand Infection Incision, Drainage and Debridement(Right) - Sea Krishnamurthy MD Surgeon Sea Krishnamurthy MD Taker Off Hemp Fiber Jefferson Zapien DO Estimated Blood Loss 10 Findings Consistent with Post-Op Diagnosis Fluids 950 cc Specimens Right Thumb Superficial CX & S Right Thumb Deep CX & S Right Thumb soft tissue Anesthesia Type General Complications none
--- NOTE | 2024-10-25 15:09 | Operative Report ---
Post Operative Report Pre & Post Diagnosis Operation Date: 10/25/24 08:40 Pre-Op Diagnosis: right thumb infection Post-Op Diagnosis: right thumb infection I identified the patient and participated in the time-out.: Yes Procedure Operation Date: 10/25/24 08:40 Actual Procedures p Right Thumb Infection Incision, Drainage and Debridement(Right) - Sea Krishnamurthy MD Surgeon Sea Krishnamurthy MD Wastewater Project Engineer Jefferson Zapien DO Estimated Blood Loss 10 Findings See Below 4 cm jagged lac over the dorsal right radial thumb, portion non-healing skin and soft tissue. EPL, EPB tendons intact. MCP joint was not violated. Fluids 950 cc Specimens Right Thumb CX & S (Superficial & Deep) & Right Thumb soft tissue Anesthesia Type General Complications none Indications The patient has draining wound from their right thumb from a dog bite 10/20/24, that appears infected despite IV antibiotics. The patient understands the risks of surgery, which include but are not limited to: bleeding, infection, re- operation, damage to nerves and arteries, continued pain and DVT. The patient understands all of these instructions and explanations, all of their questions have been satisfactorily addressed. The patient has elected to proceed with surgery and the informed consent was signed. Description of Procedure The patient was taken to the Operating Room and placed in the supine position on the operating table. After general anesthetic was administered a multidisciplinary time-out was performed identifying my initials on the right upper limb as the correct and operative limb. Antibiotics regime was continued as scheduled. The right arm was prepped and draped in the usual Orthopaedic sterile fashion. The patient's thumb wound was marked to be extended approximately 1.5 cm proximally and distally. The skin edges were injected with a 50:50 mixture of 1% lidocaine and 0.5 % Marcaine with epi for a total of 10cc. The necrotic skin edges were sharply excised with a scalpel. There was devitalized, necrotic soft tissue surrounding the EPL & EPB tendons. A superficial and deep culture was obtained. The non-viable skin, soft tissue down to the 1st MCP joint was removed with a combination of sharp dissection with the scalpel, curette, scissors, and rongeur. The wound was copiously irrigated with normal saline. Following irrigation and debridement there was healthy viable red beefy tissue that was bleeding. A 22 gauge needle was used to enter the 1st MCP joint and no fluid was able to be aspirated. The skin were closed with 4-0 Nylon. The wound was covered Xeroform, 4 x 4's, ABDs, sterile Nestor, and an CHARLY. The sponge and needle counts were correct. POST-OP: Patient will be re-admitted to the hospitalist service and continued on IV antibiotics. I attest to the content of the Intraoperative Record and any orders documented therein. Any exceptions are noted below.
--- NOTE | 2024-10-25 15:31 | Operative Report ---
Post Operative Report Pre & Post Diagnosis Operation Date: 10/25/24 08:40 Pre-Op Diagnosis: right thumb infection Post-Op Diagnosis: right thumb infection I identified the patient and participated in the time-out.: Yes Procedure Operation Date: 10/25/24 08:40 Actual Procedures p Right Hand Infection Incision, Drainage and Debridement(Right) - Sea Krishnamurthy MD Surgeon Sea Krishnamurthy MD Jacquard Plate Maker Jefferson Zapien DO Estimated Blood Loss 10 Findings Consistent with Post-Op Diagnosis Specimens Superficial and deep cultures right thumb, soft tissue right thumb Description of Procedure The patient was brought to the operative suite where she underwent anesthesia. The right upper extremity was prepped and draped in the usual sterile fashion. A surgical timeout was performed. The patient underwent a right hand incision, drainage, and debridement. Please see Dr. Krishnamurthy's operative report for full details. I was present and assist with patient positioning, limb positioning, surgical procedure, wound closure, postoperative dressing placement. The patient was awakened and taken to the recovery room in satisfactory condition. I attest to the content of the Intraoperative Record and any orders documented therein. Any exceptions are noted below.
--- NOTE | 2024-10-25 15:56 | Anesthesiology Progress Note ---
Date of Service October 25, 2024 Anesthesia Post Procedure Vital Signs Vital Signs: Temp Pulse Pulse Pulse Resp BP BP 10/25/24 15:55 36.8 C 80 16 137/75 10/25/24 15:45 80 14 150/76 H 10/25/24 15:35 85 16 154/76 H 10/25/24 15:25 84 15 149/82 H 10/25/24 15:15 36.0 C L 86 16 151/78 H 10/25/24 13:16 36.6 C 84 16 153/90 H 10/25/24 07:52 36.6 C 56 L 14 144/79 H 10/25/24 07:44 36.6 C 73 16 133/74 10/24/24 20:53 36.6 C 77 16 154/83 H 10/24/24 20:29 76 20 148/89 H 10/24/24 20:06 81 20 148/89 H 10/24/24 18:00 71 20 137/77 10/24/24 17:28 77 10/24/24 16:21 81 18 157/79 H Pulse Ox O2 Del Method O2 Flow Rate 10/25/24 15:55 98 Room Air 0 10/25/24 15:45 97 Room Air 0 10/25/24 15:35 94 Room Air 0 10/25/24 15:25 99 Oxymask 8 10/25/24 15:15 99 Oxymask 8 10/25/24 13:16 96 Room Air 10/25/24 07:52 96 Room Air 10/25/24 07:44 94 Room Air 10/24/24 20:53 93 Room Air 10/24/24 20:29 94 Room Air 10/24/24 20:06 95 Room Air 10/24/24 18:00 93 Room Air 10/24/24 17:28 10/24/24 16:21 94 Room Air Pain Intensity Right Hand: Pain Intensity: 3 Transfer of Care Handoff Completed per policy Notes Mental Status: alert / awake / arousable and participated in evaluation Patient Amnestic to Procedure: Yes Nausea / Vomiting: adequately controlled Pain: adequately controlled Airway Patency, RR, SpO2: stable & adequate BP & HR: stable & adequate Hydration State: stable & adequate Anesthetic Complications: no major complications apparent and Pt Satisfied with anesthetic care
[2024-10-25] MEDS ORDERED: NALOXONE HCL 0.4 MG/1 ML VIAL/CARP IV PRN (16:00)
[2024-10-25] MEDS ORDERED: MAGNESIUM HYDROXIDE SUSP 30 ML UDC PO PRN (16:00)
[2024-10-25] MEDS ORDERED: bisacodyL 10 MG SUPP PR PRN (16:00)
[2024-10-25] MEDS: ACETAMINOPHEN 500 MG TAB PO PRN (17:20)
[2024-10-25] MEDS: ENOXAPARIN INJ 40 MG/0.4 ML SYR SQ SCH (17:21)
[2024-10-25] MEDS: VANCOMYCIN HCL 1,000 MG/270 ML BAG IV SCH (17:29)
[2024-10-25] MEDS: MELATONIN 3 MG TAB PO PRN (20:48)
[2024-10-25] MEDS: oxyCODONE HCL IR 5 MG TAB (IMMEDIATE RELEASE) PO PRN (20:49)
[2024-10-25] MEDS: SENNA 8.6 MG TAB PO SCH (20:49)
[2024-10-25] MEDS: DOCUSATE SODIUM 100 MG CAP PO SCH (20:49)
--- NOTE | 2024-10-25 22:43 | Orthopedic Progress Note ---
Date of Service October 25, 2024 Assessment & Plan (1) Dog bite of right hand including fingers with infection: Plan: The patient was educated regarding today's findings. Conservative care measures were discussed. Importance of icing and elevating the hand to reduce swelling and pain was emphasized. She should leave the splint in place. She will be reassessed in the morning. Continue IV antibiotics x 48 hours. Advance diet as tolerated. Continue with Tylenol and oxycodone as needed for pain control. Admission and Anticipated Discharge Date Admission Date: October 24, 2024 Subjective This 78 year old female is seen this evening in her room. She is postop day 0 from right thumb incision and drainage. She has a female friend at bedside. The patient states she is doing fine. She denies any nausea or vomiting. She took some Tylenol earlier for pain relief but states that is starting to increase. She thinks she will take some narcotic before bed this evening. She is otherwise in good spirits and has no other complaints. Physical Exam Physical Exam: General: Well-developed, well-nourished, elderly female, in no acute distress. Laying in bed. Alert and oriented. Conversive. Skin: Warm and dry with good turgor. She has a postsurgical dressing and splint on the right thumb. There is no bleeding through the dressing. It was not removed. Musculoskeletal: The patient has intact motor function of her right shoulder and elbow. Wrist and thumb motion was not assessed due to the splint placement. She has intact motor function of her index through little fingers. Results & Data Vital Signs (Past 12 Hours) Vital Signs Temp Pulse Pulse Resp BP Pulse Ox O2 Del Method 10/25/24 19:00 36.7 C 80 18 127/56 L 94 Room Air 10/25/24 18:00 36.7 C 76 16 136/76 95 Room Air 10/25/24 16:58 36.6 C 78 16 139/74 96 Room Air 10/25/24 16:30 36.6 C 75 16 142/74 H 97 Room Air 10/25/24 16:00 36.7 C 75 14 138/76 97 Room Air 10/25/24 15:55 36.8 C 80 16 137/75 98 Room Air 10/25/24 15:45 80 14 150/76 H 97 Room Air 10/25/24 15:35 85 16 154/76 H 94 Room Air 10/25/24 15:25 84 15 149/82 H 99 Oxymask 10/25/24 15:15 36.0 C L 86 16 151/78 H 99 Oxymask 10/25/24 13:16 36.6 C 84 16 153/90 H 96 Room Air O2 Flow Rate 10/25/24 19:00 10/25/24 18:00 10/25/24 16:58 10/25/24 16:30 10/25/24 16:00 10/25/24 15:55 0 10/25/24 15:45 0 10/25/24 15:35 0 10/25/24 15:25 8 10/25/24 15:15 8 10/25/24 13:16 (1) Dog bite of right hand including fingers with infection Encounter type: initial encounter Qualified Code(s): S61.451A - Open bite of right hand, initial encounter; S61.259A - Open bite of unspecified finger without damage to nail, initial encounter; L08.9 - Local infection of the skin and subcutaneous tissue, unspecified; W54.0XXA - Bitten by dog, initial encounter
--- NOTE | 2024-10-26 07:51 | Hospitalist Progress Note ---
Date of Service October 26, 2024 Assessment & Plan (1) Cellulitis: (2) Dog bite: (3) Multiple myeloma: (4) MDS (myelodysplastic syndrome): Plan 78-year-old female PMHx MDS, MM, HTN, and anemia presenting for a R thumb wound. Dog bite occurred 10/20/2024, no antibiotics were started outpatient. ED evaluation reveals WBC 7.18, H&H 10.1/28.3, platelets 654, currently 6 0, ESR 25; CMP creatinine 0.54, ratio 29.6, glucose 167, AST 28, ALT 58; CRP 6.91; procalcitonin 0.17; hand CT soft tissue laceration seen near base of thumb with subcutaneous edema extending distally throughout the thumb and proximally to the level of the wrist without significant extension into the forearm, no abscess, no underlying bony abnormality; blood cultures pending.; Provided with 1L NSS, Unasyn 3 g IV, and acetaminophen 1 g IV in ED. #Cellulitis/Dog Bite , R Hand/Thumb Initial injury w/ dog bite on 10/20 (dog UTD on vaccines, pt UTD on tetanus reported but >5yrs and was provided on 10/25). Procal 0.17. No leukocytosis (R) CT w/ soft tissue laceration near base of thumb, subcutaneous edema extending distally throughout the thumb proximal to the level of the wrist. No abscess or underlying bony abn Orthopedics, ID consulted p Right Thumb Infection Incision, Drainage and Debridement(Right) on 10/25 with Sea Krishnamurthy MD. EBL 10cc. Per OP report, noted devitalized, necrotic soft tissue surrounding the EPL & EPB tendons which was dessected and irrigated and following had healthy viable tissue. Attempt enter 1st MCP joint w/o fluid for aspiration Cx from bedside 10/25 w/ many WBC, many gram positive cocci, few gram negative bacilli Cx from OR pending -- gram positive cocci and gram positive bacilli seen Remains on Unasyn IV. Vanco IV continued as added by ID 10/25 - continued for now Blood cx pending, NGTD WBC wnl, afebrile Hgb 7.7, suspected dilutional aspect from IVF however discussed w/ oncology, Dr Lewis, and recs for 1u PRBC. Further discussion w/ patient she has been getting ~2 units ~q3wk as outpatient and last transfusion last Thursday. 10/17. Type/screen, type/cross x 1 unit to transfuse now. Prior reports order from [facility]. Pain control, antiemetics as needed Appreciate recs from ID F/u cx results, dispo and ongoing abx TBD based on cx #MM/MDS MM diagnosed 09/2023, MDS 09/26/2024 - on a 28-day course w 5 days on chemo, 3 wks off. Follows with heme/onc, most recent visit day of arrival 10/24/2024 and was to start chemo day of arrival which did not occur Reports getting ~2units every 3 wks, last transfusion prior last Thursday. WBC stable, hgb down to 7.7 and while suspected dilutional from IVF while NPO for OR, did discuss w/ oncology and recs to transfuse 1 u PRBC. Type/screen, type/cross and transfuse 1 u ordered (likely have to come from [facility] due to antibodies) Abx for above, remains on Acyclovir BID for proph Pt's oncologist (Dr. Lewis) consulted regarding chemotherapy - not yet seen and was in OR yesterday but as above was discussed w/ her oncologist about PRBC. Appreciate consult when able/done and will need rescheduled for outpt chemo #HTN BP controlled and remains on lisinopril 10mg daily, BP 123/67 DVT proph: SCDs ordered, Lovenox SQ once daily. No overt bleeding reported and transfusion likely from her underlying MM however may need to consider holding if any bleeding occurs. Plt function stable Dispo: continued inpatient stay on IV abx/monitoring cultures. ID consult appreciated. 1u PRBC for hgb 7.7. PT/OT consults pending Hopefully able to dc on PO abx in next 24-48 hours pending course and final cultures Admission and Anticipated Discharge Date Admission Date: October 24, 2024 Supervising Physician Co-Signing Physician Notes The patient was not seen by me. The chart was reviewed. Case discussed with YULY Wiggins. Agree with assessment and plan Subjective Evaluated this morning, resting in bed. Pain got to about a 7 last night but much better today and controlled with oxycodone. Dressing to be changed tomorrow per orthopedics. Decent appetite. Discussed monitoring cultures to determine abx selection at dc but ortho and myself rec at least another day IV abx and patient reports hopeful for potential discharge tomorrow. Questions/concerns addressed, care plan discussed with nursing. Physical Exam 2 Physical Exam: General: 78yo female sitting up in bed, NAD HEENT: head atraumatic, normocephalic, L port site c/d/i Resp: even/unlabored, no wheezing/rales CV: RRR, no significant m/r/g, no pitting edema GI; +BS, soft/NT no zheng MSK/Neuro: dressing to RIGHT hand/thumb c/d/i, sensation intact, pulses present, cap refill wnl. dressing NOT removed today (orthopedics reporting to change in AM tomorrow), no streaking up the wrist/forearm Psych: AOx3, cooperative with exam Results & Data Results & Data Vital Signs (Past 12 Hours) Vital Signs Temp Pulse Resp BP BP Pulse Ox O2 Del Method 10/26/24 07:17 36.7 C 73 18 123/67 96 Room Air 10/26/24 02:58 36.8 C 69 16 118/70 93 Room Air 10/25/24 23:12 36.6 C 80 16 123/68 94 Room Air Laboratory Results 10/26/24 08:01 10/26/24 08:01 PG Care Time/CCT Total # of Minutes Spent Total Time Spent with Patient: Total time spent is greater than 50% in coordination of care (as documented) at patient's floor/unit and/or counseling patient: Coding Level of Care Code 19988 SUB INP/OBS CARE 3/50MIN Diagnoses Cellulitis L03.113 Laterality: right Site of cellulitis: extremity Site of cellulitis of extremity: upper extremity Dog bite W54.0XXA Encounter type: initial encounter Multiple myeloma, remission status unspecified C90.00 Multiple myeloma remission status: unspecified MDS (myelodysplastic syndrome) D46.9 (1) Cellulitis Laterality: right Site of cellulitis: extremity Site of cellulitis of extremity: upper extremity Qualified Code(s): L03.113 - Cellulitis of right upper limb (2) Dog bite Encounter type: initial encounter Qualified Code(s): W54.0XXA - Bitten by dog, initial encounter (3) Multiple myeloma Multiple myeloma remission status: unspecified Qualified Code(s): C90.00 - Multiple myeloma not having achieved remission
[2024-10-26 09:12] LABS: Hematocrit (blood only) 24.4 % (37.0-47.0); Hemoglobin 7.7 g/dl (12.0-16.0); Mean Corpuscular Hemoglobin 29.1 pg (25.0-34.0); Mean Corpuscular Hgb Conc 31.6 g/dL (32.0-36.0); Mean Corpuscular Volume 92.1 fL (80.0-100.0); Mean Platelet Volume 12.7 fL (9.4-12.4); Platelet Count 509 K/uL (130-400); RDW Coefficient of Variation 17.7 % (11.5-14.5); RDW Standard Deviation 53.3 fL (36.4-46.3); Red Blood Count 2.65 M/uL (4.20-5.40); White Blood Count 6.65 K/ul (4.8-10.8)
[2024-10-26 09:23] LABS: Albumin Level 3.1 gm/dl (3.4-5.0); Bilirubin,Total 0.9 mg/dl (0.2-1.0); Calcium 8.3 mg/dl (8.6-10.3); Potassium 3.9 mmol/L (3.5-5.1)
[2024-10-26 09:29] LABS: Albumin Globulin Ratio 1.5 (0.9-2); BUN Creatinine Ratio 18.8 (10-20); Creatinine Clr Calc Pharmacy 77.2 ml/min; Globulin 2.1 gm/dl (2.5-4.0); Total Protein 5.2 gm/dl (6.0-8.3)
[2024-10-26 09:40] LABS: ALC (manual) 1.53 K/uL (1.2-3.4); ANC (manual) 4.26 K/uL (1.4-6.5); Basophils % (manual) 3 %; Blast # (manual) 0.13 K/uL (0-0); Blast Cells % (manual) 2 %; Giant Platelets 2+; Hypogranular Neutrophils 3+; Lymphocytes # (manual) 1.53 K/uL (1.2-3.4); Lymphocytes % (manual) 23 %; Monocytes # (manual) 0.53 K/uL (0.11-0.59); Monocytes % (manual) 8 %; Neutrophils # (manual) 4.26 K/uL (1.40-6.50); Neutrophils % (manual) 64 %; Polychromasia 1+
[2024-10-26] MEDS ORDERED: SODIUM CHLORIDE 0.9% 100 ML IV PRN (10:23)
--- NOTE | 2024-10-26 11:21 | Orthopedic Progress Note ---
Date of Service October 26, 2024 Assessment & Plan (1) Dog bite of right hand including fingers with infection: Plan: The patient was educated regarding today's findings. Conservative care measures were discussed. Importance of icing and elevating the hand to reduce swelling and pain was emphasized. She should leave the splint in place. She will be reassessed in the morning. Continue IV antibiotics x 48 hours. Advance diet as tolerated. Continue with Tylenol and oxycodone as needed for pain control. Plan POD 1 - S/P Right Hand Infection Incision, Drainage and Debridement with Dr. Krishnamurthy Keep postoperative dressings on at all times. Keep them clean and dry. Ice and elevate right hand as needed for pain or swelling. May do gentle finger range of motion as the dressings allow. Continue IV antibiotics as per primary service. Continue regular diet. Pain medication as needed. Will plan for dressing change tomorrow to reassess wound. If it looks okay and no surgical intervention is planned then may potentially go home tomorrow. Will arrange follow-up for approximately 1 week for reassessment. Will need to go home on oral antibiotics for 7 to 10 days after discharge. May resume chemo from an orthopedic stand point. Dr. Krishnamurthy present for today's visit. Patient understands and agrees with the plan. Admission and Anticipated Discharge Date Admission Date: October 24, 2024 Supervising Physician Co-Signing Physician Notes I, Dr. Krishnamurthy, saw and examined the patient with my PA and agree with the above findings and plan o f care, I developed. Cheyanne Lenz is resting in bed. Doing well. No complaints of significant pain. Postoperative dressings are in place. She has been ambulating in her room and overall doing well. Physical Exam Musculoskeletal: Exam of her right upper extremity: Postoperative dressings are clean, dry and intact. The tip of her right thumb is visible. Minimal edema. No erythema. Capillary refill is brisk. She is able to wiggle her thumb gently in the dressing. Hand is elevated. No odor Results & Data Vital Signs (Past 12 Hours) Vital Signs Temp Pulse Resp BP BP Pulse Ox O2 Del Method 10/26/24 07:17 36.7 C 73 18 123/67 96 Room Air 10/26/24 02:58 36.8 C 69 16 118/70 93 Room Air Laboratory Results 10/25/24 14:31 Gram Stain - Final Thumb,Right Aerobic and Anaerobic Culture - Pending 10/25/24 14:37 Gram Stain - Final Thumb,Right Aerobic and Anaerobic Culture - Pending 10/25/24 14:29 Gram Stain - Final Thumb,Right Aerobic and Anaerobic Culture - Pending 10/24/24 17:09 Aerobic Blood Culture - Preliminary Blood No growth in Aerobic bottle after 24 hours. Anaerobic Blood Culture - Preliminary No growth in Anaerobic bottle after 24 hours. 10/24/24 17:09 Aerobic Blood Culture - Preliminary Blood No growth in Aerobic bottle after 24 hours. Anaerobic Blood Culture - Preliminary No growth in Anaerobic bottle after 24 hours. 10/25/24 09:00 Gram Stain - Final Hand,Right Aerobic and Anaerobic Culture - Pending 10/26/24 10/26/24 10/25/24 10:28 08:01 11:07 WBC 6.65 RBC 2.65 L Hgb 7.7 L Hct 24.4 L MCV 92.1 MCH 29.1 MCHC 31.6 L RDW Std Deviation 53.3 H RDW Coeff of Juan 17.7 H Plt Count 509 H MPV 12.7 H Neutrophils % (Manual) 64 Lymphocytes % (Manual) 23 Monocytes % (Manual) 8 Basophils % (Manual) 3 Blast Cells % (Manual) 2 Neutrophils # (Manual) 4.26 Total Absolute Neuts 4.26 Lymphocytes # (Manual) 1.53 Total Abs Lymphocytes 1.53 Monocytes # (Manual) 0.53 Basophils # (Manual) 0.20 Blast Cells # (Man) 0.13 H Hypogranular Neuts 3+ Giant Platelets 2+ Polychromasia 1+ Sodium 139 Potassium 3.9 Chloride 104 Carbon Dioxide 31 Anion Gap 4 BUN 9 Creatinine 0.48 L Est Cr Clr Drug Dosing 77.2 eGFR 96.29 BUN/Creatinine Ratio 18.8 Glucose 103 H Calcium 8.3 L Total Bilirubin 0.9 AST 15 ALT 38 Alkaline Phosphatase 70 Total Protein 5.2 L Albumin 3.1 L Globulin 2.1 L Albumin/Globulin Ratio 1.5 Nasal Screen MRSA (PCR) Negative Crossmatch See Detail (1) Dog bite of right hand including fingers with infection Encounter type: initial encounter Qualified Code(s): S61.451A - Open bite of right hand, initial encounter; S61.259A - Open bite of unspecified finger without damage to nail, initial encounter; L08.9 - Local infection of the skin and subcutaneous tissue, unspecified; W54.0XXA - Bitten by dog, initial encounter
--- NOTE | 2024-10-26 12:00 | Infectious Disease Progress Nt ---
Date of Service October 26, 2024 Assessment & Plan (1) Cellulitis: (2) Dog bite: (3) Multiple myeloma: (4) MDS (myelodysplastic syndrome): Plan 78yo F with h/o MDS/MM on chemo (per chart, she is on monthly daralex, last dose 10/12, was planned for decitabine 10/24), chest port, right breast cancer 1996 s/p lumpectomy and chemo/XRT, HTN, and anemia who presented on 10/24 with a right thumb swelling, redness, drainage. On 10/20 she was playing with her dog when the dog accidentally bit her hand. She was seen at oncology appointment for chemo, but sent her to the ED. Dog is up-to-date on vaccines, patient has had her tetanus shot in 2015. On admission, she was afebrile, vss. Initial labs with WBC 7.18, Cr 0.54, ALT 58. Lactate 1.2. ESR 25, CRP 6.91. PCT 0.17. CT hand with soft tissue laceration seen near the base of the thumb, with subcu edema extending distally throughout the thumb, and proximally to the level of the wrist without significant extension into the forearm; no abscess; no underlying bony abnormality. She has received unasyn. S/p TdAP. ID consulted 10/25. Vanc added due to purulence and immunocompromised state. S/p OR 10/25 for I&D (per op note, necrotic soft tissue surrounding the EPL & EPB tendons, non-viable skin, soft tissue down to the 1st MCP joint was removed, after debridement, 1st MCP joint aspiration attempted but no fluid). Continuing current abx while waiting for cultures. If no growth of MRSA, then vancomycin can be stopped. Op note states necrotic tissue surrounding the tendons. Per Dr. Krishnamurthy, tendons were exposed. Will therefore treat for 3 weeks given possible tendon involvement. # Right hand cellulitis and wound in setting of dog bite s/p I&D 10/25 # MDS/MM on chemo # Chest port - continue vancomycin pharmacy dosed protocol stop if no growth of MRSA by tomorrow - continue Unasyn 3g IV q6h - plan for 3 weeks of abx given possible tendon involvement, starting 10/25 - final regimen pending cultures - ppx: on acyclovir Will continue to follow. If questions or concerns, contact via Pinterest or Infectious Disease Call Center . Saritha Ling MD [facility], Division of Infectious Diseases Admission and Anticipated Discharge Date Admission Date: October 24, 2024 Subjective This patient recommendation is based on a telemedicine consult request which was completed asynchronously through chart review and information provided by the primary physician. The patient was not seen or examined today. The evaluation is consultative in nature and all patient care and treatment decisions can either be accepted or rejected by the patient's primary hospital-based treating physician using their own independent medical judgment for their patient. Time Spent Reviewing Chart: 31+ minutes Patient s/p I&D. Remains afebrile, no leukocytosis. Results & Data Vital Signs (Past 12 Hours) Vital Signs Temp Pulse Resp BP BP Pulse Ox O2 Del Method 10/26/24 07:17 36.7 C 73 18 123/67 96 Room Air 10/26/24 02:58 36.8 C 69 16 118/70 93 Room Air Laboratory Results Labs reviewed. (1) Cellulitis Laterality: right Site of cellulitis: extremity Site of cellulitis of extremity: upper extremity Qualified Code(s): L03.113 - Cellulitis of right upper limb (2) Dog bite Encounter type: initial encounter Qualified Code(s): W54.0XXA - Bitten by dog, initial encounter (3) Multiple myeloma Multiple myeloma remission status: unspecified Qualified Code(s): C90.00 - Multiple myeloma not having achieved remission
[2024-10-27 06:00] LABS: Calcium 8.5 mg/dl (8.6-10.3); Magnesium 1.7 mg/dl (1.7-2.4); Potassium 4.1 mmol/L (3.5-5.1)
[2024-10-27 06:05] LABS: BUN Creatinine Ratio 15.7 (10-20); Creatinine Clr Calc Pharmacy 72.7 ml/min
[2024-10-27] MEDS: VANCOMYCIN LEVEL ONE (06:25)
[2024-10-27 06:47] LABS: Hematocrit (blood only) 25.9 % (37.0-47.0); Hemoglobin 8.3 g/dl (12.0-16.0); Mean Corpuscular Volume 91.5 fL (80.0-100.0); Red Blood Count 2.83 M/uL (4.20-5.40); White Blood Count 6.13 K/ul (4.8-10.8)
[2024-10-27 06:48] LABS: ALC (manual) 2.02 K/uL (1.2-3.4); Basophils # (manual) 0.43 K/uL (0-0.2); Basophils % (manual) 7 %; Eosinophils # (manual) 0.18 K/uL (0-0.50); Eosinophils % (manual) 3 %; Hypogranular Neutrophils 3+; Lymphocytes # (manual) 2.02 K/uL (1.2-3.4); Lymphocytes % (manual) 33 %; Mean Corpuscular Hemoglobin 29.3 pg (25.0-34.0); Mean Platelet Volume 12.8 fL (9.4-12.4); Monocytes # (manual) 0.49 K/uL (0.11-0.59); Monocytes % (manual) 8 %; Neutrophils % (manual) 49 %; Platelet Count 574 K/uL (130-400); Polychromasia 1+; RDW Coefficient of Variation 17.9 % (11.5-14.5)
--- NOTE | 2024-10-27 08:03 | Hospitalist Progress Note ---
Date of Service October 27, 2024 Assessment & Plan (1) Cellulitis: (2) Dog bite: (3) Multiple myeloma: (4) MDS (myelodysplastic syndrome): Plan 78-year-old female PMHx MDS, MM, HTN, and anemia presenting for a R thumb wound. Dog bite occurred 10/20/2024, no antibiotics were started outpatient. ED evaluation reveals WBC 7.18, H&H 10.1/28.3, platelets 654, currently 6 0, ESR 25; CMP creatinine 0.54, ratio 29.6, glucose 167, AST 28, ALT 58; CRP 6.91; procalcitonin 0.17; hand CT soft tissue laceration seen near base of thumb with subcutaneous edema extending distally throughout the thumb and proximally to the level of the wrist without significant extension into the forearm, no abscess, no underlying bony abnormality; blood cultures pending.; Provided with 1L NSS, Unasyn 3 g IV, and acetaminophen 1 g IV in ED. #Cellulitis/Dog Bite , R Hand/Thumb Initial injury w/ dog bite on 10/20 (dog UTD on vaccines, pt UTD on tetanus reported but >5yrs and was provided on 10/25). Procal 0.17. No leukocytosis (R) CT w/ soft tissue laceration near base of thumb, subcutaneous edema extending distally throughout the thumb proximal to the level of the wrist. No abscess or underlying bony abn Orthopedics, ID consulted p Right Thumb Infection Incision, Drainage and Debridement(Right) on 10/25 with Sea Krishnamurthy MD. EBL 10cc. Per OP report, noted devitalized, necrotic soft tissue surrounding the EPL & EPB tendons which was dessected and irrigated and following had healthy viable tissue. Attempt enter 1st MCP joint w/o fluid for aspiration Cx from bedside 10/25 after warm soaks and OR Cx x 3 obtained Cultures growing Staph pseudointermedius, Pateurella canis/oralis, Strep canis, Strep minor, Actinomyces canis ID on consult, remains on Unasyn, Vancomycin Blood cx remain NGTD x 48hrs WBC wnl, afebrile Pain control, ice, elevation Per ID, if no further growth, plan to dc on Doxy 100mg BID AND Augmentin 875mg BID x 3 wks (EOT 11/15) with possible extension Augmentin 1-3 wks after 11/15 if ongoing c'f infection (for longer tx actinomyces) Outpt f/u PCP and orthopedics Hgb 7.7, suspected dilutional aspect from IVF however discussed w/ oncology, Dr Lewis, and recs for 1u PRBC. Further discussion w/ patient she has been getting ~2 units ~q3wk as outpatient and last transfusion last Thursday. 10/17. Type/screen, type/cross x 1 unit to transfuse now. Prior reports order from [facility]. #MM/MDS MM diagnosed 09/2023, MDS 09/26/2024 - on a 28-day course w 5 days on chemo, 3 wks off. Follows with Dr Lewis, was due for chemo on presentation (to be rescheduled) Per patient, gets ~2u PRBC about every 3 wks Oncology consult, discussed w/ Dr Lewis and given 1u PRBC for hgb 7.7 (antibodies, came from [facility]) Hgb stable/improved stable 8.3 and no symptoms and plan for repeat labs on THURSDAY in f/u Abx for above, remains on Acyclovir BID for proph #HTN BP controlled and remains on lisinopril 10mg daily, BP 145/75 DVT proph: SCDs ordered, Lovenox SQ once daily. No overt bleeding reported and transfusion likely from her underlying MM however may need to consider holding if any bleeding occurs. Plt function stable Dispo: continued inpatient stay on IV abx for overnight and monitoring final cx. Plan for Doxy/Augmentin for 3 wk cours as outlined and hopeful dc AM 10/28 (patient hopeful for EARLY dc) Admission and Anticipated Discharge Date Admission Date: October 24, 2024 Supervising Physician Co-Signing Physician Notes The patient was not seen by me. The chart was reviewed. Case discussed with YULY Wiggins. Agree with assessment and plan Subjective Eval this morning, seen by ortho and wanted another day IV abx per discussion w/ nursing and patient however patient was hopeful for dc. Discussed would benefit another day and can see her first thing tomorrow and get out on Augmentin for 3 wk course. Dressing changed by ortho, sensation and ROM intact to thumb per patient. Dressing not changed today. Hgb stable. Discussed repeat labs thursday for CCP and will give labs to be drawn. No CP/SOB. Questions/concerns addressed at this time. Physical Exam 2 Physical Exam: General: 78yo female sitting up in bed, NAD HEENT: head atraumatic, normocephalic, L port site c/d/i Resp: even/unlabored, no wheezing/rales CV: RRR, no significant m/r/g, no pitting edema GI; +BS, soft/NT no zheng MSK/Neuro: dressing to RIGHT hand/thumb changed this morning by orthopedics (not removed), cap refill wnl, sensation intact, no streaking but does have some moderate edema (RN to get new ice pack) Psych: AOx3, cooperative with exam Results & Data Results & Data Vital Signs (Past 12 Hours) Vital Signs Temp Pulse Pulse Resp BP BP Pulse Ox 10/27/24 07:39 36.8 C 75 16 158/80 H 91 10/27/24 06:39 36.9 C 69 18 138/79 97 10/27/24 06:09 36.8 C 70 16 147/77 H 93 10/27/24 05:39 36.8 C 71 18 149/80 H 96 10/27/24 05:28 36.8 C 69 18 136/76 88 L 10/27/24 05:24 36.8 C 97 H 18 136/76 97 10/27/24 05:03 36.7 C 74 16 166/78 H 91 10/26/24 21:34 36.8 C 74 16 125/69 96 O2 Del Method 10/27/24 07:39 10/27/24 06:39 10/27/24 06:09 10/27/24 05:39 10/27/24 05:28 Room Air 10/27/24 05:24 10/27/24 05:03 10/26/24 21:34 Room Air Laboratory Results 10/27/24 05:09 10/27/24 05:09 PG Care Time/CCT Total # of Minutes Spent Total Time Spent with Patient: Total time spent is greater than 50% in coordination of care (as documented) at patient's floor/unit and/or counseling patient: Coding Level of Care Code 62591 SUB INP/OBS CARE 3/50MIN Diagnoses Cellulitis L03.113 Laterality: right Site of cellulitis: extremity Site of cellulitis of extremity: upper extremity Dog bite W54.0XXA Encounter type: initial encounter Multiple myeloma, remission status unspecified C90.00 Multiple myeloma remission status: unspecified MDS (myelodysplastic syndrome) D46.9 (1) Cellulitis Laterality: right Site of cellulitis: extremity Site of cellulitis of extremity: upper extremity Qualified Code(s): L03.113 - Cellulitis of right upper limb (2) Dog bite Encounter type: initial encounter Qualified Code(s): W54.0XXA - Bitten by dog, initial encounter (3) Multiple myeloma Multiple myeloma remission status: unspecified Qualified Code(s): C90.00 - Multiple myeloma not having achieved remission
[2024-10-27] MEDS: HEPARIN 100 UNIT/ML 5ML FLUSH FLUSH PRN (09:13)
--- NOTE | 2024-10-27 11:00 | Orthopedic Progress Note ---
Date of Service October 27, 2024 Assessment & Plan (1) Dog bite of right hand including fingers with infection: Plan: The patient was educated regarding today's findings. Conservative care measures were discussed. She is afebrile and her white count looks good. However, her wound is concerning because of the erythema, edema, and mucopurulent discharge. Importance of receiving a full 48 hours of IV antibiotics was discussed with the patient. Her next dose will be around noon. She will require 3 weeks of oral antibiotics after discharge from the hospital. Importance of continuation of her ice and elevation of the hand was discussed at length with the patient. Perform gentle motion of the digits to assist with edema control. I will have her seen by Dr. Krishnamurthy later today as well, due to the mucopurulent discharge. She may require additional irrigation and debridement for continued infection. The patient's wound was redressed. The care plan was discussed with Dr. Krishnamurthy. He will make her n.p.o. after midnight anticipation of a return to the OR tomorrow. Admission and Anticipated Discharge Date Admission Date: October 24, 2024 Supervising Physician Co-Signing Physician Notes I saw and examined the patient and agree with the above findings and plan of care I developed and discussed with my PA. Due to purulent drainage, will make NPO after midnight and have placed on the add-on list for tomorrow. Continue IV antibiotics. Subjective 78-year-old female is seen today in her room. She is postop day 2 from incision and drainage of an infected dog bite on her right thumb. She states the thumb is feeling better. Her pain is decreased. She denies any fevers or chills. She notes some swelling in her hand it seems to be a little worse, but she is still able to wiggle her fingers. Denies any numbness or tingling. She would like to be discharged to home today. No additional complaints. Physical Exam Physical Exam: General: Well-developed, well-nourished, elderly female, in no acute distress. Laying in bed. Alert and oriented. Skin: Warm dry with good turgor. Postsurgical dressing is in place on the right thumb. Upon removal, she has continued erythema present around the base of the right thumb. There is edema present through her fingers and thumb. She has some mucopurulent discharge present at the site of her incision. Area is tender to touch and mildly fluctuant. Musculoskeletal: The patient has intact motor function of her thumb for flexion at the IP and MCP joints. She is unable to fully flex secondary to edema, but does have intact motion without pain. She has good motion of the rest of her digits also without pain. There is intact flexion and extension as well as radial/ulnar deviation of the wrist. Neurologic: Gross sensation is intact across the right thumb and digits by soft touch. Results & Data Vital Signs (Past 12 Hours) Vital Signs Temp Pulse Pulse Resp BP BP Pulse Ox 10/27/24 08:09 36.9 C 69 18 145/75 H 95 10/27/24 07:39 36.8 C 75 16 158/80 H 91 10/27/24 06:39 36.9 C 69 18 138/79 97 10/27/24 06:09 36.8 C 70 16 147/77 H 93 10/27/24 05:39 36.8 C 71 18 149/80 H 96 10/27/24 05:28 36.8 C 69 18 136/76 88 L 10/27/24 05:24 36.8 C 97 H 18 136/76 97 10/27/24 05:03 36.7 C 74 16 166/78 H 91 O2 Del Method 10/27/24 08:09 10/27/24 07:39 10/27/24 06:39 10/27/24 06:09 10/27/24 05:39 10/27/24 05:28 Room Air 10/27/24 05:24 10/27/24 05:03 Laboratory Results CBC obtained this morning shows a white count of 6.13. H&H of 8.3 and 25.9. (1) Dog bite of right hand including fingers with infection Encounter type: initial encounter Qualified Code(s): S61.451A - Open bite of right hand, initial encounter; S61.259A - Open bite of unspecified finger without damage to nail, initial encounter; L08.9 - Local infection of the skin and subcutaneous tissue, unspecified; W54.0XXA - Bitten by dog, initial encounter
--- NOTE | 2024-10-27 11:29 | Infectious Disease Progress Nt ---
Date of Service October 27, 2024 Assessment & Plan (1) Cellulitis: (2) Dog bite: (3) Multiple myeloma: (4) MDS (myelodysplastic syndrome): Plan 78yo F with h/o MDS/MM on chemo (per chart, she is on monthly daralex, last dose 10/12, was planned for decitabine 10/24), chest port, right breast cancer 1997 s/p lumpectomy and chemo/XRT, HTN, and anemia who presented on 10/24 with a right thumb swelling, redness, drainage. On 10/20 she was playing with her dog when the dog accidentally bit her hand. She was seen at oncology appointment for chemo, but sent her to the ED. Dog is up-to-date on vaccines, patient has had her tetanus shot in 2016. On admission, she was afebrile, vss. Initial labs with WBC 7.18, Cr 0.54, ALT 58. Lactate 1.2. ESR 25, CRP 6.91. PCT 0.17. CT hand with soft tissue laceration seen near the base of the thumb, with subcu edema extending distally throughout the thumb, and proximally to the level of the wrist without significant extension into the forearm; no abscess; no underlying bony abnormality. She has received unasyn. S/p TdAP. ID consulted 10/25. Vanc added due to purulence and immunocompromised state. S/p OR 10/25 for I&D (per op note, necrotic soft tissue surrounding the EPL & EPB tendons, non-viable skin, soft tissue down to the 1st MCP joint was removed, after debridement, 1st MCP joint aspiration attempted but no fluid). OR cx polymicrobial consisting of Staph pseudointermedius, Pateurella canis/oralis, Strep canis, Strep minor, Actinomyces canis. Op note states necrotic tissue surrounding the tendons. Per Dr. Krishnamurthy, tendons were exposed. Will therefore need at least 3 weeks of antibiotics given possible tendon involvement. I spoke to micro and they said there are about 10 different colonies. Im going to keep her on methicillin-resistant coverage given Staph (which could be sensitive or resistant CONS). She does also have Actinomyces which generally may involve treatment for 2-6 weeks in the setting of a polymicrobial, nonclassic presentation (ie subcutaneous infection that has undergone debridement). Will plan for the 3 weeks of treatment with doxycycline/augmentin with consideration for extending the augmentin component an additional 1-3 weeks afterwards if ongoing infection or any concerns given the Actinomyces. Favor outpatient ID follow up. Micro: 10/24 BCX: ngtd 10/25 MRSA screen: neg 10/25 WCx: Staph pseudointermedius, Pateurella canis/oralis, Strep canis, Strep minor, Actinomyces canis # Right hand cellulitis and wound in setting of dog bite s/p I&D 10/25 cx polymicrobial # MDS/MM on chemo # Chest port - f/u wound cx - continue vancomycin pharmacy dosed protocol - continue Unasyn 3g IV q6h - if no other growth, on discharge, plan to change antibiotics to doxycycline 100mg PO bid and augmentin 875mg PO bid - duration of both doxy/augemntin will be 3 weeks (start 10/25, end 11/15) may extend the augmentin an additional 1-3 weeks after 11/15/24 if ongoing c/f infection (for longer treatment of Actinomyces) - favor local ID follow up - ppx: on acyclovir Will continue to follow. If questions or concerns, contact via [facility] or Infectious Disease Call Center . Saritha Ling MD [facility], Division of Infectious Diseases Admission and Anticipated Discharge Date Admission Date: October 24, 2024 Subjective This patient recommendation is based on a telemedicine consult request which was completed asynchronously through chart review and information provided by the primary physician. The patient was not seen or examined today. The evaluation is consultative in nature and all patient care and treatment decisions can either be accepted or rejected by the patient's primary hospital-based treating physician using their own independent medical judgment for their patient. Time Spent Reviewing Chart: 31+ minutes Cultures reviewed. Remains afebrile. Results & Data Vital Signs (Past 12 Hours) Vital Signs Temp Pulse Pulse Resp BP BP Pulse Ox 10/27/24 08:09 36.9 C 69 18 145/75 H 95 10/27/24 07:39 36.8 C 75 16 158/80 H 91 10/27/24 06:39 36.9 C 69 18 138/79 97 10/27/24 06:09 36.8 C 70 16 147/77 H 93 10/27/24 05:39 36.8 C 71 18 149/80 H 96 10/27/24 05:28 36.8 C 69 18 136/76 88 L 10/27/24 05:24 36.8 C 97 H 18 136/76 97 10/27/24 05:03 36.7 C 74 16 166/78 H 91 O2 Del Method 10/27/24 08:09 10/27/24 07:39 10/27/24 06:39 10/27/24 06:09 10/27/24 05:39 10/27/24 05:28 Room Air 10/27/24 05:24 10/27/24 05:03 (1) Cellulitis Laterality: right Site of cellulitis: extremity Site of cellulitis of extremity: upper extremity Qualified Code(s): L03.113 - Cellulitis of right upper limb (2) Dog bite Encounter type: initial encounter Qualified Code(s): W54.0XXA - Bitten by dog, initial encounter (3) Multiple myeloma Multiple myeloma remission status: unspecified Qualified Code(s): C90.00 - Multiple myeloma not having achieved remission
[2024-10-27] MEDS: VANCOMYCIN HCL 1,000 MG/270 ML BAG IV SCH (13:56)
--- NOTE | 2024-10-27 15:25 | Pharmacy Report ---
Pharmacy PK ABX Note - Date of Service October 27, 2024 - Assessment and Plan Assessment 10/27: * I&D of right hand/thumb done 10/25--cultures were polymicrobial consisting of Staph pseudointermedius, Pasteurella canis/oralis, Strep canis, Strep minor, Actinomyces canis, and peptostreptococcus. * Per ID, duration of abx expected to be at least 3 weeks given possible tendon involvement--To continue vancomycin + Unasyn while admitted and will likely discharge with doxycycline + Augmentin. * Renal function has been stable and patient afebrile. 10/25: 78 year old F receiving IV Vancomycin + Unasyn for treatment of hand cellulitis with purulent discharge d/t dog bite. Cultures pending. WBC wnl, afebrile. Immunocompromised. Day # 1 of antimicrobial therapy. Plan Vancomycin * Vancomycin trough drawn this morning was 8.4mcg/mL. This extrapolates to an AUC/JAMIL below the target range. * Maintenance dose has been increased to: 1000 mg IV every 8 hours * Regimen is predicted to achieve target AUC/JAMIL of 400-600 mg/L.hr * Another vancomycin trough has been scheduled for tomorrow. Unasyn 3g IV Q6H Pharmacy will continue to follow and will adjust dose/frequency as necessary. Thank you. Pharmacy has transitioned to AUC monitoring for vancomycin. AUC/JAMIL is the preferred PK/PD target and is associated with decreased risk of nephrotoxicity compared to traditional trough targets.
[2024-10-27] MEDS ORDERED: SODIUM CHLORIDE 0.9% 100 ML IV PRN (17:58)
[2024-10-27] MEDS ORDERED: SODIUM CHLORIDE 0.9% 1,000 ML IV SCH (18:00)
[2024-10-27] MEDS: SODIUM CHLORIDE 0.9% 1,000 ML IV SCH (21:55)
[2024-10-28 06:57] LABS: BUN Creatinine Ratio 17.8 (10-20); Calcium 8.3 mg/dl (8.6-10.3); Creatinine Clr Calc Pharmacy 82.4 ml/min; Hematocrit (blood only) 27.9 % (37.0-47.0); Magnesium 1.8 mg/dl (1.7-2.4); Mean Corpuscular Hemoglobin 29.4 pg (25.0-34.0); Mean Corpuscular Hgb Conc 32.3 g/dL (32.0-36.0); Mean Corpuscular Volume 91.2 fL (80.0-100.0); Mean Platelet Volume 12.9 fL (9.4-12.4); Platelet Count 426 K/uL (130-400); Potassium 3.9 mmol/L (3.5-5.1); RDW Coefficient of Variation 16.7 % (11.5-14.5); RDW Standard Deviation 51.4 fL (36.4-46.3); Red Blood Count 3.06 M/uL (4.20-5.40)
[2024-10-28 07:41] LABS: White Blood Count 4.34 K/ul (4.8-10.8)
--- NOTE | 2024-10-28 08:36 | Hospitalist Progress Note ---
Date of Service October 28, 2024 Assessment & Plan (1) Cellulitis: (2) Dog bite: (3) Multiple myeloma: (4) MDS (myelodysplastic syndrome): Plan 78-year-old female PMHx MDS, MM, HTN, and anemia presenting for a R thumb wound. Dog bite occurred 10/20/2024, no antibiotics were started outpatient. ED evaluation reveals WBC 7.18, H&H 10.1/28.3, platelets 654, currently 6 0, ESR 25; CMP creatinine 0.54, ratio 29.6, glucose 167, AST 28, ALT 58; CRP 6.91; procalcitonin 0.17; hand CT soft tissue laceration seen near base of thumb with subcutaneous edema extending distally throughout the thumb and proximally to the level of the wrist without significant extension into the forearm, no abscess, no underlying bony abnormality; blood cultures pending.; Provided with 1L NSS, Unasyn 3 g IV, and acetaminophen 1 g IV in ED. #Cellulitis/Dog Bite , R Hand/Thumb Initial injury w/ dog bite on 10/20 but did not seek treatment until seen by CCP for chemo Tetatnus shot provided given >5yrs per discussion w/ orthopedic PA CT noting laceration near base thumb on R, subcu edema distally throughout thumb proximal to level of wrist. No abscess or underlying bony abn Ortho, ID consulted s/p Right Thumb I&D Dr Krishnamurthy on 10/25 * Per OP report, noted devitalized, necrotic soft tissue surrounding the EPL & EPB tendons which was dissected and irrigated and following had healthy viable tissue. Attempt enter 1st MCP joint w/o fluid for aspiration *Increased purulent drainage on eval evening 10/[address] Krishnamurthy concerning for need for repeat I&D today with Dr Krishnamurthy. NPO/IVF have been ordered Remains on Unasyn, Vanco IV No leukocytosis or fever Blood cx NGTD Cxs Staph pseudointermedius, Pasteurella canis/oralis, Strep canis, Strep minor, Actinomyces canis. Discussed w ID for abx at al: would plan for AUGMENTIN BID x THREE week course - micro running sensitivities for staph species to see if ok for just Augmentin alone, otherwise need to add Doxy BID x 3 wks as well. *Also note potential need for extension augmentin for actinomyces per ID pending eval in f/u Monitor labs/exam on repeat - will remain inpatient through weekend per discussion w/ ortho. Hopeful dc Thursday #MM/MDS MM diagnosed 09/2023, MDS 09/26/2024 - on a 28-day course w 5 days on chemo, 3 wks off. Follows with Dr Lewis, was due for chemo on presentation (to be rescheduled, onc to arrange) Pt reports transfusions ~3 wks w/ 2u PRBC (last done October 17) Oncology on consult and discussed s/p 1u PRBC on 10/26 for hgb 7.7 - suspected anemia from MDS/chemotherapy but also dilutional from IVF ordered for OR above Does have antibodies and needs to come from [facility] and given need for repeat I&D have ordered additional 1u on hold but hgb presently stable 9.0 and will monitor to transfuse if <8 Continue Acyclovir for proph Outpt f/u oncology at al #HTN BP controlled and remains on lisinopril 10mg daily, BP 156/70 DVT proph: SCDs ordered, Lovenox SQ once daily ordered but placed on HOLD for OR this afternoon Dispo: continued inpatient stay on IV abx and repeat I&D planned with Dr Krishnamurthy this afternoon. Will remain inpatient through weekend w/ hopeful dc on Thursday pending course. Admission and Anticipated Discharge Date Admission Date: October 24, 2024 Supervising Physician Co-Signing Physician Notes The patient was not seen by me. The chart was reviewed. Case discussed with YULY Wiggins. Agree with assessment and plan Subjective Eval this morning, ID in room via telemedicine w/ nursing. Purulent drainage last evening from wound, need for repeat I&D today and patient reports Dr Krishnamurthy said possibly drain placement. Conversation about course of abx and 3 wk planned but possible extension additional 1-3 wks in follow up if ongoing issues for actinomyces species. Micro running sensitivities for staph to see if needing doxy w/ augmentin but if sensitive can use solo agent at al. Pain controlled, plan for I&D when OR available. No CP/SOB, abdominal pain/nausea or other issue. Blood cx remain NGTD. Questions/concerns addressed at this time. Physical Exam 2 Physical Exam: General: 78yo female sitting up in bed, NAD, ID in room/radiology transcriptionist HEENT: head atraumatic, normocephalic, L port site c/d/i without evidence for infection Resp: even/unlabored, no wheezing/rales CV: RRR, no significant m/r/g, no pitting edema GI; +BS, soft/NT no zheng MSK/Neuro: dressing to RIGHT hand/thumb c/d/i, fingers mobile. dressing not changed but does have some improvement in edema today, cap refill wnl and ice pack in place Psych: AOx3, cooperative with exam Results & Data Results & Data Vital Signs (Past 12 Hours) Vital Signs Temp Pulse Resp BP Pulse Ox O2 Del Method 10/28/24 07:39 36.7 C 71 20 156/70 H 93 Room Air 10/27/24 21:53 37.2 C 83 16 139/78 95 Room Air Laboratory Results 10/28/24 06:04 10/28/24 06:04 PG Care Time/CCT Total # of Minutes Spent Total Time Spent with Patient: Total time spent is greater than 50% in coordination of care (as documented) at patient's floor/unit and/or counseling patient: Coding Level of Care Code 24579 SUB INP/OBS CARE 3/50MIN Diagnoses Cellulitis L03.113 Laterality: right Site of cellulitis: extremity Site of cellulitis of extremity: upper extremity Dog bite W54.0XXA Encounter type: initial encounter Multiple myeloma, remission status unspecified C90.00 Multiple myeloma remission status: unspecified MDS (myelodysplastic syndrome) D46.9 (1) Cellulitis Laterality: right Site of cellulitis: extremity Site of cellulitis of extremity: upper extremity Qualified Code(s): L03.113 - Cellulitis of right upper limb (2) Dog bite Encounter type: initial encounter Qualified Code(s): W54.0XXA - Bitten by dog, initial encounter (3) Multiple myeloma Multiple myeloma remission status: unspecified Qualified Code(s): C90.00 - Multiple myeloma not having achieved remission
--- NOTE | 2024-10-28 10:55 | Orthopedic Progress Note ---
Date of Service October 28, 2024 Assessment & Plan (1) Dog bite of right hand including fingers with infection: Plan: Patient has been n.p.o. since midnight last night. Informed consent to perform an irrigation and debridement of her right thumb was obtained today. The form is in her chart. Dressing was kept in place because it was clean and dry. Patient met with infectious disease earlier this morning. They currently have her on IV vancomycin. Will plan on her procedure later this afternoon. Admission and Anticipated Discharge Date Admission Date: October 24, 2024 Supervising Physician Co-Signing Physician Notes I, Dr. Krishnamurthy, saw and examined the patient and due to purulent drainage last evening planned return visit to OR for repeat I&D right thumb. Patient is agreeable. Informed consent signed. Patient has been NPO since midnight. Continue IV Abx. Subjective This 78-year-old female was seen today to obtain consent for irrigation and debridement of a right thumb infection caused by dog bite. Patient states she feels fairly comfortable today. She was receiving IV vancomycin. She understands that she will need another procedure done this afternoon and is agreeable. Currently she denies chest pain, shortness of breath, fever, chills, sweats, nausea, vomiting or difficulty voiding. She also denies numbness or tingling in the right upper extremity. Review of Systems Review of Systems: All systems reviewed & are unremarkable except as noted in Subjective Physical Exam Physical Exam: Right hand: Dressing is clean dry intact left in place. Patient does have visible edema of the 2nd through 5th digits. She is able to detect light sensation to touch over the pads of all digits. She is able to resist compression of digits 2 through 5 and perform pincer grasp in the thumb and index finger resisting distraction. Her peripheral pulses were unable to be palpated due to the dressing. She has full range of motion of her elbow. She is neurovascularly intact in the right upper extremity. Results & Data Vital Signs (Past 12 Hours) Vital Signs Temp Pulse Resp BP Pulse Ox O2 Del Method 10/28/24 07:39 36.7 C 71 20 156/70 H 93 Room Air Diagnostic Findings Laboratory Results WBC 4.34 K/ul (4.8-10.8) L 10/28/24 06:04 RBC 3.06 M/uL (4.20-5.40) L 10/28/24 06:04 Hgb 9.0 g/dl (12.0-16.0) L 10/28/24 06:04 Hct 27.9 % (37.0-47.0) L 10/28/24 06:04 MCV 91.2 fL (80.0-100.0) 10/28/24 06:04 MCH 29.4 pg (25.0-34.0) 10/28/24 06:04 MCHC 32.3 g/dL (32.0-36.0) 10/28/24 06:04 RDW Std Deviation 51.4 fL (36.4-46.3) H 10/28/24 06:04 RDW Coeff of Juan 16.7 % (11.5-14.5) H 10/28/24 06:04 Plt Count 426 K/uL (130-400) H 10/28/24 06:04 MPV 12.9 fL (9.4-12.4) H 10/28/24 06:04 Immature Gran % (Auto) 0.0 % 10/24/24 15:42 Neut % (Auto) 59.3 % 10/24/24 15:42 Lymph % (Auto) 28.4 % 10/24/24 15:42 Bollinger % (Auto) 11.7 % 10/24/24 15:42 Eos % (Auto) 0.3 % 10/24/24 15:42 Baso % (Auto) 0.3 % 10/24/24 15:42 Neut # (Auto) 4.26 K/uL (1.40-6.50) 10/24/24 15:42 Lymph # (Auto) 2.04 K/uL (1.20-3.40) 10/24/24 15:42 Bollinger # (Auto) 0.84 K/uL (0.11-0.59) H 10/24/24 15:42 Eos # (Auto) 0.02 K/uL (0.00-0.50) 10/24/24 15:42 Baso # (Auto) 0.02 K/uL (0.00-0.20) 10/24/24 15:42 Immature Gran # (Auto) 0.00 K/uL (0.01-0.20) L 10/24/24 15:42 Neutrophils % (Manual) 49 % 10/27/24 05:09 Lymphocytes % (Manual) 33 % 10/27/24 05:09 Monocytes % (Manual) 8 % 10/27/24 05:09 Eosinophils % (Manual) 3 % 10/27/24 05:09 Basophils % (Manual) 7 % 10/27/24 05:09 Blast Cells % (Manual) 2 % 10/26/24 08:01 Neutrophils # (Manual) 3.00 K/uL (1.40-6.50) 10/27/24 05:09 Total Absolute Neuts 3.00 K/uL (1.4-6.5) 10/27/24 05:09 Lymphocytes # (Manual) 2.02 K/uL (1.2-3.4) 10/27/24 05:09 Total Abs Lymphocytes 2.02 K/uL (1.2-3.4) 10/27/24 05:09 Monocytes # (Manual) 0.49 K/uL (0.11-0.59) 10/27/24 05:09 Eosinophils # (Manual) 0.18 K/uL (0-0.50) 10/27/24 05:09 Basophils # (Manual) 0.43 K/uL (0-0.2) H 10/27/24 05:09 Blast Cells # (Man) 0.13 K/uL (0-0) H 10/26/24 08:01 Hypogranular Neuts 3+ 10/27/24 05:09 Giant Platelets 2+ 10/26/24 08:01 Polychromasia 1+ 10/27/24 05:09 ESR 25 mm/hr (0-30) 10/24/24 15:42 Sodium 142 mmol/L (136-145) 10/28/24 06:04 Potassium 3.9 mmol/L (3.5-5.1) 10/28/24 06:04 Chloride 106 mmol/L (98-107) 10/28/24 06:04 Carbon Dioxide 32 mmol/L (21-32) 10/28/24 06:04 Anion Gap 4 (3-11) 10/28/24 06:04 BUN 8 mg/dl (6-23) 10/28/24 06:04 Creatinine 0.45 mg/dl (0.6-1.2) L 10/28/24 06:04 Est Cr Clr Drug Dosing 82.4 ml/min 10/28/24 06:04 eGFR 97.80 10/28/24 06:04 BUN/Creatinine Ratio 17.8 (10-20) 10/28/24 06:04 Glucose 116 mg/dl (70-99(Fasting)) H 10/28/24 06:04 Lactate 1.2 mmol/L (0.4-2.0) 10/24/24 17:09 Calcium 8.3 mg/dl (8.6-10.3) L 10/28/24 06:04 Magnesium 1.8 mg/dl (1.7-2.4) 10/28/24 06:04 Total Bilirubin 0.9 mg/dl (0.2-1.0) 10/26/24 08:01 AST 15 U/L (13-39) 10/26/24 08:01 ALT 38 U/L (7-52) 10/26/24 08:01 Alkaline Phosphatase 70 U/L (34-104) 10/26/24 08:01 C-Reactive Protein 6.91 mg/dl (0-0.5) H 10/24/24 15:42 Total Protein 5.2 gm/dl (6.0-8.3) L 10/26/24 08:01 Albumin 3.1 gm/dl (3.4-5.0) L 10/26/24 08:01 Globulin 2.1 gm/dl (2.5-4.0) L 10/26/24 08:01 Albumin/Globulin Ratio 1.5 (0.9-2) 10/26/24 08:01 Procalcitonin 0.17 ng/ml (0-0.5) 10/24/24 15:42 Nasal Screen MRSA (PCR) Negative (Negative) 10/25/24 11:07 Random Vancomycin 8.4 mcg/ml (10-20) L 10/27/24 05:09 Blood Type A Positive 10/26/24 10:28 Antibody Screen POSITIVE A 10/26/24 10:28 Antibody Identification Anti-I Anti-K Anti-Kate Panagglutinin due to drug 10/26/24 10:28 Antibody Identification Anti-I Anti-K Anti-Kate Panagglutinin due to drug 10/26/24 10:28 Antibody Identification Anti-I Anti-K Anti-Kate Panagglutinin due to drug 10/26/24 10:28 Antibody Identification Anti-I Anti-K Anti-Kate Panagglutinin due to drug 10/26/24 10:28 Antibody ID Comment Cancelled 10/26/24 10:28 Crossmatch See Detail 10/26/24 10:[address] 10/24/24 16:30 CT right hand with and without contrast History: Dog bite Comparison: None Technique: CT performed of the right hand with and without IV contrast. Dose reduction techniques were achieved by using automatic exposure control and/or adjustment of mA and/or kV according to patient size and/or use of iterative reconstruction technique. Findings: No fracture or dislocation. Joint spaces are normally aligned. There is severe osteoarthritis at the first carpometacarpal joint. A soft tissue laceration is seen near the base of the thumb, where there is an area of subcutaneous free fluid, without focal fluid collection. Edema extends along the length of the thumb distally, and proximally to approximately the level of the wrist, without significant extension into the forearm. No visualized abscesses. No aggressive osseous lesion. Impression: Soft tissue laceration seen near the base of the thumb, with subcutaneous edema extending distally throughout the thumb, and proximally to the level of the wrist without significant extension into the forearm. No abscess. No underlying bony abnormality. Osteoarthritis. Electronically signed by Nick Hoang 10-24-2024 5:23 PM (1) Dog bite of right hand including fingers with infection Encounter type: initial encounter Qualified Code(s): S61.451A - Open bite of right hand, initial encounter; S61.259A - Open bite of unspecified finger without damage to nail, initial encounter; L08.9 - Local infection of the skin and subcutaneous tissue, unspecified; W54.0XXA - Bitten by dog, initial encounter
[2024-10-28] MEDS: VANCOMYCIN LEVEL ONE (12:01)
--- NOTE | 2024-10-28 13:34 | Infectious Disease Progress Nt ---
Date of Service October 28, 2024 Assessment & Plan (1) Cellulitis: (2) Dog bite: (3) Multiple myeloma: (4) MDS (myelodysplastic syndrome): Plan 78yo F with h/o MDS/MM on chemo (per chart, she is on monthly daralex, last dose 10/12, was planned for decitabine 10/24), chest port, right breast cancer 1997 s/p lumpectomy and chemo/XRT, HTN, and anemia who presented on 10/24 with a right thumb swelling, redness, drainage. On 10/20 she was playing with her dog when the dog accidentally bit her hand. She was seen at oncology appointment for chemo, but sent her to the ED. Dog is up-to-date on vaccines, patient has had her tetanus shot in 2016. On admission, she was afebrile, vss. Initial labs with WBC 7.18, Cr 0.54, ALT 58. Lactate 1.2. ESR 25, CRP 6.91. PCT 0.17. CT hand with soft tissue laceration seen near the base of the thumb, with subcu edema extending distally throughout the thumb, and proximally to the level of the wrist without significant extension into the forearm; no abscess; no underlying bony abnormality. She has received unasyn. S/p TdAP. ID consulted 10/25. Vanc added due to purulence and immunocompromised state. S/p OR 10/25 for I&D (per op note, necrotic soft tissue surrounding the EPL & EPB tendons, non-viable skin, soft tissue down to the 1st MCP joint was removed, after debridement, 1st MCP joint aspiration attempted but no fluid). OR cx polymicrobial consisting of Staph pseudointermedius, Pateurella canis/oralis, Strep canis, Strep minor, Actinomyces canis, Peptostreptococcus. Waiting for repeat I+D today. Op note states necrotic tissue surrounding the tendons. Per Dr. Krishnamurthy, tendons were exposed. Will therefore need at least 3 weeks of antibiotics given possible tendon involvement. I spoke to micro and they said there are about 10 different organisms. I did ask them to run sensitivities on Staph species. She does also have Actinomyces which generally may involve longer treatment (e.g., 2-6wks) in the setting of a polymicrobial, nonclassic presentation (ie subcutaneous infection that has undergone debridement). Will plan for the 3 weeks for now and consider extension depending on clinical improvement vs ongoing infection. # Right hand cellulitis and wound in setting of dog bite s/p I&D 10/25 cx polymicrobial # MDS/MM on chemo # Chest port - f/u wound cx sensi to Staph in process - continue vancomycin pharmacy dosed protocol - if Staph is methicillin- sensitive, then stop - continue Unasyn 3g IV q6h - f/u debridement today - if plans for discharge over the weekend and cultures are still in process, then can dc on doxycycline 100mg PO bid and augmentin 875mg PO bid x 3 weeks (starting from last I&D) with f/u of cultures may extend the augmentin an additional 1-3 weeks or longer after end of therapy if ongoing c/f infection (for treatment of Actinomyces) - she should have local ID follow up - ppx: on acyclovir Will continue to follow. If questions or concerns, [facility] or [facility] . Saritha Ling MD [facility], Division of Infectious Diseases Admission and Anticipated Discharge Date Admission Date: October 24, 2024 Subjective Subsequent visit was provided via telemedicine using two-way real-time interactive telecommunication between the patient and the telemedicine provider. For the duration of the visit, the provider was performing the assessment from a different facility than the patient. This includesuse of bluetooth stethoscope forauscultationperformed by the telepresenter that the telemedicine provider can hear if described in the physical exam. Toddler Guide contact information: Please call ID Connect Call Center . (Phone Number For Physician Use Only) After establishing a telemedicine visit, patient was: Patient was verified with two unique identifiers, Patient/authorized rep acknowledged consent and understanding and Gave permission to continue telehealth session Time Spent with Patient: Subsequent => 55 min Patient without complaints. She still has some swelling but says she's able to move her fingers. No abdominal discomfort or diarrhea. Physical Exam Physical Exam: General: Awake, alert, no acute distress HEENT: NC/AT, EOMI, mmm Neck: supple Lungs: respirations non-labored Abdomen: soft, NT/ND Ext: dressing over right hand Results & Data Vital Signs (Past 12 Hours) Vital Signs Temp Pulse Resp BP Pulse Ox O2 Del Method 10/28/24 07:39 36.7 C 71 20 156/70 H 93 Room Air Laboratory Results Labs reviewed. (1) Cellulitis Laterality: right Site of cellulitis: extremity Site of cellulitis of extremity: upper extremity Qualified Code(s): L03.113 - Cellulitis of right upper limb (2) Dog bite Encounter type: initial encounter Qualified Code(s): W54.0XXA - Bitten by dog, initial encounter (3) Multiple myeloma Multiple myeloma remission status: unspecified Qualified Code(s): C90.00 - Multiple myeloma not having achieved remission
--- NOTE | 2024-10-28 13:42 | Pharmacy Report ---
Pharmacy PK ABX Note - Date of Service October 28, 2024 - Assessment and Plan Assessment 10/28: * Vancomycin level drawn today was 14mcg/mL which extrapolates to an AUC/JAMIL within the goal range. Patient is to continue on Vancomycin 1gm iv q 8 hours. 10/27: * I&D of right hand/thumb done 10/25--cultures were polymicrobial consisting of Staph pseudointermedius, Pasteurella canis/oralis, Strep canis, Strep minor, Actinomyces canis, and peptostreptococcus. * Per ID, duration of abx expected to be at least 3 weeks given possible tendon involvement--To continue vancomycin + Unasyn while admitted and will likely discharge with doxycycline + Augmentin. * Renal function has been stable and patient afebrile. 10/25: 78 year old F receiving IV Vancomycin + Unasyn for treatment of hand cellulitis with purulent discharge d/t dog bite. Cultures pending. WBC wnl, afebrile. Immunocompromised. Day # 4 of antimicrobial therapy. Plan Vancomycin * Vancomycin trough drawn today was 14 mcg/mL. This extrapolates to an AUC/JAMIL of 485mg/L.hr. * Maintenance dose will remain 1000 mg IV every 8 hours * Another vancomycin trough will be ordered in the next few days or as clinically warranted. Unasyn 3g IV Q6H Pharmacy will continue to follow and will adjust dose/frequency as necessary. Thank you. Pharmacy has transitioned to AUC monitoring for vancomycin. AUC/JAMIL is the preferred PK/PD target and is associated with decreased risk of nephrotoxicity compared to traditional trough targets.
[2024-10-28] MEDS ORDERED: DEXAMETHASONE SOD INJ 4 MG/ML VIAL ONE (16:04)
[2024-10-28] MEDS ORDERED: PROPOFOL IV EMULSION 10 MG/ML 20 ML VIAL IV ONE (16:04)
[2024-10-28] MEDS ORDERED: ONDANSETRON INJ 2 MG/ML 2 ML VIAL ONE (16:04)
[2024-10-28] MEDS ORDERED: LIDOCAINE 2% 2 ML VIAL/AMP(20MG/ML) INFIL ONE (16:04)
[2024-10-28] MEDS ORDERED: fentaNYL citrate PF 100 MCG/2 ML VIAL ONE (16:05)
[2024-10-28] MEDS ORDERED: MIDAZOLAM HCL 1 MG/ML 2ML VIAL ONE (16:05)
--- NOTE | 2024-10-28 16:19 | Anesthesiology Consultation ---
Date of Service October 28, 2024 Assessment & Plan (1) Encounter for pre-operative examination: Chart Review Chart Review: Acceptable Risk for Surgery History Surgery Operation Date: 10/25/24 08:40 Proposed Procedures p Right Hand Infection Incision, Drainage and Debridement - Sea Korina Krishnamurthy MD Operation Date: 10/28/24 08:20 Proposed Procedures p Right Thumb Incision and Drainage - Sea Korina Krishnamurthy MD Height/Weight Height: 4 ft 10 in Weight: 67.3 kg Allergies Allergy/AdvReac Type Severity Reaction Status Date / Time oxytocin Allergy Unknown extreme Verified 10/17/24 07:00 cramping Sulfa (Sulfonamide Allergy Unknown HIVES Verified 10/17/24 07:00 Antibiotics) sulfamethoxazole Allergy Hives Verified 10/17/24 07:00 Influenza Virus Vaccines AdvReac PMR Verified 10/17/24 07:00 Medications Home Medications Medication Instructions Recorded Confirmed Last Taken ascorbic acid (vitamin C) 500 mg 500 mg PO DAILY 12/31/23 10/24/24 1 Week Ago tablet (Vitamin C) ~09/26/24 calcium 600 mg (as carbonate)-vit 1 tab PO DAILY 12/31/23 10/24/24 1 Week Ago D3 20 mcg (800 unit) chewable ~09/26/24 tablet (Caltrate plus D) phlknike-jygf-beos 8 mg-folic 400 1 tab PO DAILY 12/31/23 10/24/24 1 Week Ago mcg-K 50 mcg-lutein 300 mcg tablet ~09/26/24 (Centrum Silver Women) aspirin 81 mg tablet,delayed 81 mg PO DAILY 03/05/24 10/24/24 1 Week Ago release ~09/26/24 cyanocobalamin (vitamin B-12) 1,000 mcg PO DAILY 03/05/24 10/24/24 1 Week Ago 1,000 mcg tablet (Vitamin B-12) ~09/26/24 mometasone 50 mcg/actuation nasal 2 spray intranasal DAILY PRN 03/05/24 10/24/24 1 Month Ago spray Congestion ~09/05/24 omega 1-aoh-moj-fish oil 1,000 mg 1 cap PO DAILY 03/05/24 10/24/24 1 Week Ago (120 mg-180 mg) capsule (Fish Oil) ~09/26/24 ondansetron 8 mg disintegrating 8 mg PO Q8H PRN Nausea And Vomiting 03/05/24 10/24/24 Unknown tablet prochlorperazine maleate 10 mg 10 mg PO Q6H PRN Nausea And 03/05/24 10/24/24 Unknown tablet Vomiting vitamin A-vitamin C-vit E-min 1 tab PO DAILY 03/05/24 10/24/24 1 Week Ago tablet ~09/26/24 vitamin E 268 mg (400 unit) capsule 268 mg PO DAILY 03/05/24 10/24/24 1 Week Ago ~09/26/24 acyclovir 400 mg tablet 400 mg PO BID 07/14/24 10/24/24 10/02/24 22:00 lisinopril 10 mg tablet 10 mg PO QAM 09/26/24 10/24/24 10/03/24 06:30 lidocaine-prilocaine 2.5 %-2.5 % 1 applic topical UD 10/24/24 10/24/24 Unknown topical cream amoxicillin 875 mg-potassium 1 tab PO BID #46 tabs 10/27/24 Unknown clavulanate 125 mg tablet doxycycline hyclate 100 mg capsule 100 mg PO BID 20 days #40 caps 10/27/24 Unknown oxycodone 5 mg tablet 5 mg PO Q4H PRN pain #20 tabs 10/27/24 Unknown Active Medications Generic Name Dose Route Start Last Admin Trade Name Freq PRN Reason Stop Dose Admin Acetaminophen 1,000 mg 10/25/24 00:40 10/27/24 20:10 Acetaminophen 500 Mg Tab PO 11/24/24 00:39 1,000 mg Q8H PRN Administration Mild Pain or Fever Acyclovir 400 mg 10/24/24 21:00 10/28/24 08:07 Acyclovir 400 Mg Tab PO 11/23/24 20:59 400 mg BID ARJUN Administration Docusate Sodium 100 mg 10/25/24 21:00 10/28/24 08:06 Docusate Sodium 100 Mg Cap PO 11/24/24 20:59 100 mg BID ARJUN Administration Enoxaparin Sodium 40 mg 10/25/24 16:00 10/27/24 15:26 Enoxaparin Inj 40 Mg/0.4 Ml Syr SQ 11/24/24 15:59 40 mg Q24H ARJUN Administration Heparin Sodium (Porcine) 5 ml 10/25/24 03:54 10/27/24 09:13 Heparin 100 Unit/Ml 5ml Flush FLUSH 11/24/24 03:53 5 ml PRN PRN Administration Flush Ampicillin Sodium/Sulbactam Sodium 3,000 mg in 100 mls @ 200 mls/hr 10/25/24 00:00 10/28/24 12:50 Unasyn IV 11/01/24 00:00 Infused Q6H ARJUN Infusion Vancomycin HCl 1,000 mg in 270 mls @ 200 mls/hr 10/27/24 14:00 10/28/24 14:48 Vancomycin Hcl IV 11/01/24 13:59 200 mls/hr Q8H ARJUN Administration Sodium Chloride 1,000 mls @ 80 mls/hr 10/27/24 22:00 10/28/24 10:31 Nss IV 11/26/24 21:59 80 mls/hr .[id number] ARJUN Administration Lisinopril 10 mg 10/25/24 09:00 10/28/24 08:07 Lisinopril 10 Mg Tab PO 11/24/24 08:59 10 mg QAM ARJUN Administration Melatonin 3 mg 10/24/24 20:57 10/27/24 20:10 Melatonin 3 Mg Tab PO 11/23/24 20:56 3 mg HS PRN Administration Insomnia Oxycodone HCl 5 mg 10/25/24 16:00 10/26/24 20:31 Oxycodone Hcl Ir 5 Mg Tab (Immediate Release) PO 11/08/24 15:59 5 mg Q4H PRN Administration Mod-Sev Pain (Scale 4-10) Sennosides 17.2 mg 10/25/24 21:00 10/27/24 20:07 Senna 8.6 Mg Tab PO 11/24/24 20:59 17.2 mg HS ARJUN Administration NPO Date Last Intake of Fluids: 10/27/24 Time Last Intake of Fluids: 23:59 Last Intake of Fluids Comment: sip with AM meds Date Last Intake of Solids: 10/27/24 Time Last Intake of Solids: 23:59 Past Medical History Medical History Multiple myeloma dx 09/2023, currently in remission Monoclonal gammopathy of unknown significance (MGUS) MDS (myelodysplastic syndrome) 09/26/24, currently having a full week of chemo this week Emphysema lung Benign essential hypertension History of anemia Right lower lobe pulmonary nodule History of pneumonia 02/2024, no residual symptoms History of tobacco use Sepsis hx, 02/2024, w/pneumonia Hx of breast cancer dx 1996, 4 rounds go chemo prior to sx, aug 1997 6 xrt treatments Past Family History Family History Mother Breast cancer Father Myocardial infarction Hypertension Grandmother Cancer Denies family history of Ovarian cancer Prostate cancer Colorectal cancer Past Surgical History Surgical History Port-A-Cath in place (10/03/24) Insertion of Access Port with Fluoroscopy(Left) - Tomi Zuniga DO History of dilatation and curettage (1971) History of open reduction and internal fixation (ORIF) procedure (1956) right fibula Hx of colonoscopy Hx of bilateral cataract extraction History of bone marrow biopsy most recent 07/2024 Hx of repair of right rotator cuff (2013) Hx of nasal septoplasty (2002) Hx of vaginal hysterectomy 12/1992 History of lumpectomy of right breast 1996 S/P hernia surgery 05/1978, left inguinal 01/1984, left arterial hernia Social History Smoking Status: Former smoker tobacco type: cigarettes Smoking cigarettes per day: A pack a day. Do You Dip or Chew Tobacco: No Smoking End Date: 40 years ago. Hx Alcohol Use: Yes Alcohol type: wine alcohol intake frequency: holidays/special occasions only Hx Substance Use: No substance use type: does not use Physical Exam Vital Signs Last Vital Signs Temp 37.1 C 10/28/24 14:52 Pulse 70 10/28/24 14:52 Resp 20 10/28/24 14:52 BP 173/84 H 10/28/24 14:52 Pulse Ox 93 10/28/24 14:52 O2 Del Method Room Air 10/28/24 14:52 O2 Flow Rate 0 10/25/24 15:55 Testing Laboratory Results 10/28/24 06:04 10/28/24 06:04 Blood Type A Positive 10/26/24 10:28 Antibody Screen POSITIVE A 10/26/24 10:28 10/25/24 14:37 Gram Stain - Final Thumb,Right Aerobic and Anaerobic Culture - Preliminary Staphylococcus pseudintermediu Streptococcus canis Pasteurella canis/oralis Actinomyces canis Peptostreptococcus canis 10/25/24 14:29 Gram Stain - Final Thumb,Right Aerobic and Anaerobic Culture - Preliminary Staphylococcus pseudintermediu Pasteurella canis/oralis Streptococcus minor Actinomyces canis Peptostreptococcus canis Bacteroides pyogenes 10/25/24 14:31 Gram Stain - Final Thumb,Right Aerobic and Anaerobic Culture - Preliminary Staphylococcus pseudintermediu Pasteurella canis/oralis Streptococcus minor Streptococcus canis Peptostreptococcus canis 10/25/24 09:00 Gram Stain - Final Hand,Right Aerobic and Anaerobic Culture - Preliminary Pasteurella canis/oralis Streptococcus minor Actinomyces canis 10/24/24 17:09 Aerobic Blood Culture - Preliminary Blood No growth in Aerobic bottle after 48 hours. Anaerobic Blood Culture - Preliminary No growth in Anaerobic bottle after 48 hours. 10/24/24 17:09 Aerobic Blood Culture - Preliminary Blood No growth in Aerobic bottle after 48 hours. Anaerobic Blood Culture - Preliminary No growth in Anaerobic bottle after 48 hours. Electrocardiogram Date: 10/24/24 Findings: + NSR @ (76) Echocardiogram Date: 03/10/24 EF: 55-60% LV Function: normal Valvular Disease: + no significant valvular disease
[2024-10-28] MEDS ORDERED: PROMETHAZINE HCL 6.25 MG in SODIUM CHLORIDE 0.9% 50 ML IV PRN (16:29)
[2024-10-28] MEDS ORDERED: ATROPINE SULFATE 0.1 MG/ML 10ML SYR IV PRN (16:29)
[2024-10-28] MEDS ORDERED: LABETALOL HCL IV 5 MG/ML 20ML IV PRN (16:29)
[2024-10-28] MEDS: BUPIVACAINE 0.5 % 5 MG/1 ML MPF 30ML VIAL ONE (18:31)
[2024-10-28] MEDS: LIDOCAINE 1%/EPINEPHRINE 1:100,000 50 ML VIAL ONE (18:32)
--- NOTE | 2024-10-28 18:33 | Post Operative Brief Note ---
Immediate Post Op Note Date of Surgery October 28, 2024 Pre & Post Diagnosis Operation Date: 10/28/24 08:20 Pre-Op Diagnosis: Dog bite of right hand, thumb infection Post-Op Diagnosis: Dog bite of right hand, thumb infection I identified the patient and participated in the time-out.: Yes Procedure Operation Date: 10/28/24 08:20 Actual Procedures p Right Thumb Irrigation and Debridement and Wound Vac Placement(Right) - Sea Krishnamurthy MD Surgeon Sea Krishnamurthy MD Program Coordinator [employer] Jefferson Zapien DO Estimated Blood Loss 30 Findings Consistent with Post-Op Diagnosis Fluids 800 cc Drains Other (Wound Vac) Anesthesia Type General Complications none
--- NOTE | 2024-10-28 18:34 | Operative Report ---
Post Operative Report Pre & Post Diagnosis Operation Date: 10/28/24 08:20 Pre-Op Diagnosis: Dog bite of right hand, thumb infection Post-Op Diagnosis: Dog bite of right hand, thumb infection I identified the patient and participated in the time-out.: Yes Procedure Operation Date: 10/28/24 08:20 Actual Procedures p Right Thumb Irrigation and Debridement and Wound Vac Placement(Right) - Sea Krishnamurthy MD Surgeon Sea Krishnamurthy MD Assistant Prosecuting Attorney Jefferson Zapien DO Estimated Blood Loss 30 Findings See Below Fluids 800 cc Specimens n/a Drains Wound Vac Anesthesia Type General Complications none I attest to the content of the Intraoperative Record and any orders documented therein. Any exceptions are noted below.
--- NOTE | 2024-10-28 18:39 | Operative Report ---
Post Operative Report Pre & Post Diagnosis Operation Date: 10/28/24 08:20 Pre-Op Diagnosis: Dog bite of right hand, thumb infection Post-Op Diagnosis: Dog bite of right hand, thumb infection I identified the patient and participated in the time-out.: Yes Procedure Operation Date: 10/28/24 08:20 Actual Procedures p Right Thumb Irrigation and Debridement and Wound Vac Placement(Right) - Sea Krishnamurthy MD Surgeon Sea Krishnamurthy MD Unload Associate Jefferson Zapien DO Estimated Blood Loss 30 Findings Consistent with Post-Op Diagnosis Specimens None Drains Wound VAC Description of Procedure Patient was brought to the operative suite where she underwent anesthesia. Right upper extremity was prepped and draped in the usual sterile fashion. Surgical timeout was performed. Patient underwent a right thumb irrigation debridement with wound VAC placement. Please see Dr. Krishnamurthy's operative report for full details. I was present and assisted with patient positioning, limb positioning, surgical procedure, wound closure, wound VAC placement, postoperative dressing placement. Patient was awakened and taken to the recovery room in stable condition. I attest to the content of the Intraoperative Record and any orders documented therein. Any exceptions are noted below.
[2024-10-28] MEDS: fentaNYL citrate PF 100 MCG/2 ML VIAL IV PRN (18:47)
--- NOTE | 2024-10-28 19:45 | Anesthesiology Progress Note ---
Date of Service October 28, 2024 Anesthesia Post Procedure Vital Signs Vital Signs: Temp Pulse Pulse Resp BP Pulse Ox O2 Del Method 10/28/24 19:35 63 16 158/83 H 99 Nasal Cannula 10/28/24 19:20 36.7 C 68 15 138/84 99 Nasal Cannula 10/28/24 19:10 65 15 148/79 H 99 Nasal Cannula 10/28/24 19:00 67 14 149/80 H 100 Oxymask 10/28/24 18:50 36.7 C 65 16 163/82 H 100 Oxymask 10/28/24 18:41 37.5 C 64 16 177/86 H 100 Oxymask 10/28/24 16:02 36.7 C 71 18 165/90 H 96 Room Air 10/28/24 14:52 37.1 C 70 20 173/84 H 93 Room Air 10/28/24 07:39 36.7 C 71 20 156/70 H 93 Room Air 10/27/24 21:53 37.2 C 83 16 139/78 95 Room Air O2 Flow Rate 10/28/24 19:35 2 10/28/24 19:20 2 10/28/24 19:10 2 10/28/24 19:00 4 10/28/24 18:50 4 10/28/24 18:41 6 10/28/24 16:02 10/28/24 14:52 10/28/24 07:39 10/27/24 21:53 Pain Intensity Right Hand: Pain Intensity: 4 Right Thumb: Pain Intensity: 0 Transfer of Care Handoff Completed per policy Notes Mental Status: alert / awake / arousable and participated in evaluation Patient Amnestic to Procedure: Yes Nausea / Vomiting: adequately controlled Pain: adequately controlled Airway Patency, RR, SpO2: stable & adequate BP & HR: stable & adequate Hydration State: stable & adequate Anesthetic Complications: no major complications apparent and Pt Satisfied with anesthetic care
[2024-10-29 07:07] LABS: Hematocrit (blood only) 26.7 % (37.0-47.0); Hemoglobin 8.7 g/dl (12.0-16.0); Mean Corpuscular Hemoglobin 29.8 pg (25.0-34.0); Mean Corpuscular Hgb Conc 32.6 g/dL (32.0-36.0); Mean Corpuscular Volume 91.4 fL (80.0-100.0); Mean Platelet Volume 12.8 fL (9.4-12.4); Platelet Count 385 K/uL (130-400); RDW Coefficient of Variation 16.7 % (11.5-14.5); RDW Standard Deviation 51.4 fL (36.4-46.3); Red Blood Count 2.92 M/uL (4.20-5.40); White Blood Count 5.47 K/ul (4.8-10.8)
[2024-10-29 07:09] LABS: ANC (manual) 2.84 K/uL (1.4-6.5); Basophils # (manual) 0.38 K/uL (0-0.2); Basophils % (manual) 7 %; Blast # (manual) 0.05 K/uL (0-0); Blast Cells % (manual) 1 %; Eosinophils # (manual) 0.16 K/uL (0-0.50); Eosinophils % (manual) 3 %; Hypogranular Neutrophils 3+; Lymphocytes % (manual) 31 %; Metamyelocytes # (manual) 0.05 K/uL (0-0); Metamyelocytes % (manual) 1 %; Monocytes # (manual) 0.27 K/uL (0.11-0.59); Monocytes % (manual) 5 %; Neutrophils # (manual) 2.84 K/uL (1.40-6.50); Neutrophils % (manual) 52 %
[2024-10-29 07:11] LABS: BUN Creatinine Ratio 12.5 (10-20); Creatinine Clr Calc Pharmacy 77.2 ml/min; Potassium 3.8 mmol/L (3.5-5.1)
--- NOTE | 2024-10-29 08:06 | Orthopedic Progress Note ---
Date of Service October 29, 2024 Assessment & Plan (1) Dog bite of right hand including fingers with infection: Plan: POD #1 s/p R thumb I&D, wound Vac placement & POD #4 s/p R Thumb I&D Resume diet Continue pain control Continue IV Antibiotics. Dressing was kept in place because it was clean and dry. Consult Wound Care Nurse for Wound Vac change M/W/F Will continue to follow Continue care per Hospitalist service Admission and Anticipated Discharge Date Admission Date: October 24, 2024 Subjective No complaints Physical Exam Physical Exam: RUE: Wound Vac in place. BCR < 2 sec. Sensation to Light touch intact. Able to flex and extend digits. Results & Data Vital Signs (Past 12 Hours) Vital Signs Temp Pulse Resp BP Pulse Ox O2 Del Method O2 Flow Rate 10/29/24 07:47 36.7 C 66 16 139/75 97 Nasal Cannula 3 10/29/24 03:40 93 Nasal Cannula 2 10/29/24 03:39 36.3 C L 68 16 124/67 83 L Room Air 10/28/24 22:57 36.7 C 68 18 144/77 H 96 Nasal Cannula 2 10/28/24 22:02 36.3 C L 82 17 143/67 H 99 Nasal Cannula 2 10/28/24 20:53 36.5 C 68 16 160/81 H 99 Nasal Cannula 2 10/28/24 20:33 Nasal Cannula 2 10/28/24 20:20 36.7 C 69 17 159/76 H 99 Nasal Cannula 2 Laboratory Results 10/29/24 10/28/24 Range/Units 06:26 12:25 WBC 5.47 (4.8-10.8) K/ul RBC 2.92 L (4.20-5.40) M/uL Hgb 8.7 L (12.0-16.0) g/dl Hct 26.7 L (37.0-47.0) % MCV 91.4 (80.0-100.0) fL MCH 29.8 (25.0-34.0) pg MCHC 32.6 (32.0-36.0) g/dL RDW Std Deviation 51.4 H (36.4-46.3) fL RDW Coeff of Juan 16.7 H (11.5-14.5) % Plt Count 385 (130-400) K/uL MPV 12.8 H (9.4-12.4) fL Neutrophils % (Manual) 52 % Lymphocytes % (Manual) 31 % Monocytes % (Manual) 5 % Eosinophils % (Manual) 3 % Basophils % (Manual) 7 % Metamyelocytes % (Man) 1 % Blast Cells % (Manual) 1 % Neutrophils # (Manual) 2.84 (1.40-6.50) K/uL Total Absolute Neuts 2.84 (1.4-6.5) K/uL Lymphocytes # (Manual) 1.70 (1.2-3.4) K/uL Total Abs Lymphocytes 1.70 (1.2-3.4) K/uL Monocytes # (Manual) 0.27 (0.11-0.59) K/uL Eosinophils # (Manual) 0.16 (0-0.50) K/uL Basophils # (Manual) 0.38 H (0-0.2) K/uL Metamyelocytes # (Man) 0.05 H (0-0) K/uL Blast Cells # (Man) 0.05 H (0-0) K/uL Hypogranular Neuts 3+ Sodium 140 (136-145) mmol/L Potassium 3.8 (3.5-5.1) mmol/L Chloride 106 (98-107) mmol/L Carbon Dioxide 31 (21-32) mmol/L Anion Gap 3 (3-11) BUN 6 (6-23) mg/dl Creatinine 0.48 L (0.6-1.2) mg/dl Est Cr Clr Drug Dosing 77.2 ml/min eGFR 96.29 BUN/Creatinine Ratio 12.5 (10-20) Glucose 112 H (70-99(Fasting)) mg/dl Calcium 8.0 L (8.6-10.3) mg/dl Random Vancomycin 14.0 (10-20) mcg/ml Source: Thumb,Right OV Order: Ordered: Aer/Vanita Cult/Sm Comments: Comment right thumb infection Procedure Result Verified Site Gram Stain Final 10/25/24-2032 Gram Stain Result Few Gram Positive Cocci Few WBCs Seen Aero/Vanita Cult Preliminary 10/28/24-1339 Organism 1 Staphylococcus pseudintermediu Quantity Rare Sens No Sensitivities to Follow Organism 2 Streptococcus canis Quantity Rare Sens No Sensitivities to Follow Organism 3 Pasteurella canis/oralis Quantity Rare Sens No Sensitivities to Follow Organism 4 Actinomyces canis Probable Organism Identification Quantity Few Sens No Sensitivities to Follow Organism 5 Peptostreptococcus canis Probable Organism Identification Quantity Many Sens No Sensitivities to Follow Source: Thumb,Right OV Order: Ordered: Aer/Vanita Cult/Sm Comments: Comment right thumb infection Procedure Result Verified Site Gram Stain Final 10/25/24 Gram Stain Result Moderate Gram Positive Cocci Few WBCs Seen Rare Gram Positive Bacilli Aero/Vanita Cult Preliminary 10/28/24-1331 Organism 1 Staphylococcus pseudintermediu Quantity Rare Sens Sensitivities to Follow Organism 2 Pasteurella canis/oralis Quantity Few Sens No Sensitivities to Follow Organism 3 Streptococcus minor Probable Organism Identification Quantity Rare Sens No Sensitivities to Follow Organism 4 Actinomyces canis Probable Organism Identification Quantity Moderate Sens No Sensitivities to Follow Organism 5 Peptostreptococcus canis Probable Organism Identification Quantity Many Sens No Sensitivities to Follow Organism 6 Bacteroides pyogenes Quantity Moderate Sens No Sensitivities to Follow (1) Dog bite of right hand including fingers with infection Encounter type: initial encounter Qualified Code(s): S61.451A - Open bite of right hand, initial encounter; S61.259A - Open bite of unspecified finger without damage to nail, initial encounter; L08.9 - Local infection of the skin and subcutaneous tissue, unspecified; W54.0XXA - Bitten by dog, initial encounter
--- NOTE | 2024-10-29 08:52 | Operative Report ---
Post Operative Report Pre & Post Diagnosis Operation Date: 10/28/24 08:20 Pre-Op Diagnosis: Dog bite of right hand, Thumb infection Post-Op Diagnosis: Dog bite of right hand, Thumb infection I identified the patient and participated in the time-out.: Yes Procedure Operation Date: 10/28/24 08:20 Actual Procedures p Right Thumb Irrigation and Debridement and Wound Vac Placement(Right) - Sea Krishnamurthy MD Surgeon Sea Krishnamurthy MD Heel Gummer Jefferson Zapien DO Estimated Blood Loss 30 Findings See Below Able to initially express purulent fluid, but unable to find any fluid collection. There was exposed EPL and EPB, 1st MCP joint. Necrotic soft tissue and skin. Entire wound 6 x 3 cm after partial wound closure 3 x 3 cm. There was still exposed tendons remained in the open wounds. Specimens n/a Drains Wound Vac Anesthesia Type General Complications none Indications The patient has draining wound from their right thumb from a dog bite 10/20/24, that appears infected despite IV antibiotics and I&D. The patient understands the risks of surgery, which include but are not limited to: bleeding, infection, re-operation, damage to nerves and arteries, continued pain and DVT. The patient understands all of these instructions and explanations, all of their questions have been satisfactorily addressed. The patient has elected to proceed with surgery and the informed consent was signed. Description of Procedure The patient was taken to the Operating Room and placed in the supine position on the operating table. After general anesthetic was administered a multidis ciplinary time-out was performed identifying my initials on the right thumb as the correct and operative limb. Antibiotics regime was continued as scheduled. The previous sutures were removed and I was able to express some purulent fluid from the skin adjacent to the wound. The right arm was prepped and draped in the usual Orthopaedic sterile fashion. The patient thumb wound was opened. The necrotic skin edges were sharply excised with a scalpel. There was devitalized, necrotic soft tissue surrounding the EPL & EPB tendons, 1st MCP joint, and 1st web space. The non-viable skin, soft tissue down and into 1st MCP joint was removed with a combination of sharp dissection with the scalpel, curette, scissors, and rongeur. There was swelling in the 1st webspace, and after copious irrigation a small incision was made and again there was no fluid collection. The wound was copiously irrigated with 3 L normal saline. Following irrigation and debridement there was healthy viable red beefy tissue that was bleeding. The wound measured 6 x 3 cm. The skin was partially closed proximally and distally with 4-0 Nylon. The portion of the wound centrally that was unable to be closed measured 2.5 x 3 cm and had exposed tendon. The tendons and incision were covered with [employer] and Silver Wound Vac was placed and a good seal was achieved. The wound was covered cast padding and an CHARLY. The sponge and needle counts were correct. POST-OP: Patient will be re-admitted to the hospitalist service and continued on IV antibiotics. The wound vac will be replaced on Thursday by wound care nurse. I attest to the content of the Intraoperative Record and any orders documented therein. Any exceptions are noted below.
--- NOTE | 2024-10-29 11:16 | Hospitalist Progress Note ---
Date of Service October 29, 2024 Assessment & Plan (1) Cellulitis: Plan: Right hand. She underwent right washout procedure on October 25 and repeat intervention on October 28 now has a wound VAC in place. Appreciate orthopedic consultation and management. She remains on intravenous Unasyn and vancomycin per ID recommendations (2) Dog bite: Plan: Right thumb. Cultures revealed Staphylococcus, Streptococcus, Peptostreptococcus, Pasteurella. Appreciate infectious disease consultation and recommendations. She remains on Unasyn and vancomycin (3) Multiple myeloma: Plan: By history. Serial labs. Outpatient follow-up with oncology (4) MDS (myelodysplastic syndrome): Plan: By history. Serial labs. Outpatient follow-up with oncology Plan Anticipate eventual discharge back to her home sometime next week Admission and Anticipated Discharge Date Admission Date: October 24, 2024 Subjective Alert and oriented. No complaints. She had initial washout of the left thumb dog bite wound on October 25. She underwent repeat surgery yesterday, October 28 and now has a wound VAC in place. She remains on intravenous Unasyn and vancomycin. Cultures reveal staph, strep, Pepto strep, Pasteurella. Nursing states her left arm IV infiltrated but she does have a functional port which will be used. Review of Systems 2 Review of Systems: Constitutionalno fever or chills ENTno blurred vision, no double vision, no epistaxis, no sore throat Respiratoryno cough, no wheezing, no shortness of breath Cardiacno palpitations, no chest pain, no syncope Maicol nausea, vomiting, diarrhea, melena, hematochezia GUno urinary retention, no urinary incontinence, no dysuria, no hematuria Musculoskeletalright thumb discomfort with movement. No muscle tenderness Skinno bruising, no rashes, no pruritus Neurono isolated weakness, no paresthesia, no weakness Psychno depression, no anxiety Physical Exam 2 Physical Exam: General-alert and oriented x3, no fever, no chills HEENT-head atraumatic and normocephalic, pupils equal and reactive to light, extraocular muscles intact Neck-no lymphadenopathy or thyromegaly, trachea midline Chest-clear to auscultation. No rales, wheezing or rhonchi Cardiac-regular rate and rhythm, normal S1 and S2 Abdomen-normal bowel sounds, no hepatosplenomegaly Extremities-no cyanosis, clubbing, or edema. Right hand is heavily bandaged with wound VAC in place Neuro-cranial nerves II through XII intact, motor and sensory function within normal limits, strength symmetrical, no focal deficits Psych-normal affect, normal mood Results & Data Results & Data Vital Signs (Past 12 Hours) Vital Signs Temp Pulse Resp BP Pulse Ox O2 Del Method O2 Flow Rate 10/29/24 07:47 36.7 C 66 16 139/75 97 Nasal Cannula 3 10/29/24 03:40 93 Nasal Cannula 2 10/29/24 03:39 36.3 C L 68 16 124/67 83 L Room Air Laboratory Results 10/29/24 06:26 10/29/24 06:26 PG Care Time/CCT Total # of Minutes Spent Total Time Spent with Patient: Total time spent is greater than 50% in coordination of care (as documented) at patient's floor/unit and/or counseling patient: Coding Level of Care Code 70912 SUB INP/OBS CARE 235MIN Diagnoses Cellulitis L03.113 Laterality: right Site of cellulitis: extremity Site of cellulitis of extremity: upper extremity Dog bite W54.0XXA Encounter type: initial encounter Multiple myeloma, remission status unspecified C90.00 Multiple myeloma remission status: unspecified MDS (myelodysplastic syndrome) D46.9 (1) Cellulitis Laterality: right Site of cellulitis: extremity Site of cellulitis of extremity: upper extremity Qualified Code(s): L03.113 - Cellulitis of right upper limb (2) Dog bite Encounter type: initial encounter Qualified Code(s): W54.0XXA - Bitten by dog, initial encounter (3) Multiple myeloma Multiple myeloma remission status: unspecified Qualified Code(s): C90.00 - Multiple myeloma not having achieved remission
[2024-10-30 09:04] LABS: Hematocrit (blood only) 29.7 % (37.0-47.0); Hemoglobin 9.4 g/dl (12.0-16.0); Mean Corpuscular Hemoglobin 29.1 pg (25.0-34.0); Mean Corpuscular Hgb Conc 31.6 g/dL (32.0-36.0); Mean Platelet Volume 13.1 fL (9.4-12.4); Platelet Count 401 K/uL (130-400); RDW Coefficient of Variation 16.7 % (11.5-14.5); RDW Standard Deviation 51.8 fL (36.4-46.3); Red Blood Count 3.23 M/uL (4.20-5.40)
[2024-10-30 09:07] LABS: BUN Creatinine Ratio 15.7 (10-20); Calcium 8.6 mg/dl (8.6-10.3); Creatinine Clr Calc Pharmacy 72.7 ml/min; Potassium 3.8 mmol/L (3.5-5.1)
[2024-10-30 09:21] LABS: Basophils # (auto) 0.02 K/uL (0.00-0.20); Basophils % (auto) 0.5 %; Eosinophils # (auto) 0.01 K/uL (0.00-0.50); Eosinophils % (auto) 0.2 %; Giant Platelets 1+; Hypogranular Neutrophils 3+; Lymphocytes # (auto) 1.39 K/uL (1.20-3.40); Lymphocytes % (auto) 33.1 %; Monocytes # (auto) 0.38 K/uL (0.11-0.59); Neutrophils % (auto) 57.2 %; Polychromasia 1+
--- NOTE | 2024-10-30 13:49 | Hospitalist Progress Note ---
Date of Service October 30, 2024 Assessment & Plan (1) Cellulitis: Plan: Right hand. She underwent right washout procedure on October 25 and repeat intervention on October 28 and now has a wound VAC in place. Appreciate orthopedic consultation and management. She remains on intravenous Unasyn and vancomycin per ID recommendations (2) Dog bite: Plan: Right thumb. Cultures revealed Staphylococcus, Streptococcus, Peptostreptococcus, Pasteurella. Appreciate infectious disease consultation and recommendations. She remains on Unasyn and vancomycin (3) Multiple myeloma: Plan: By history. Serial labs. Outpatient follow-up with oncology (4) MDS (myelodysplastic syndrome): Plan: By history. Serial labs. Outpatient follow-up with oncology Plan Anticipate eventual discharge back to her home sometime this coming week Admission and Anticipated Discharge Date Admission Date: October 24, 2024 Subjective Alert and oriented. No new problems. Afebrile. Vital signs are stable. Hemoglobin is stable. She remains on intravenous Unasyn and vancomycin Review of Systems 2 Review of Systems: Constitutionalno fever or chills ENTno blurred vision, no double vision, no epistaxis, no sore throat Respiratoryno cough, no wheezing, no shortness of breath Cardiacno palpitations, no chest pain, no syncope Maicol nausea, vomiting, diarrhea, melena, hematochezia GUno urinary retention, no urinary incontinence, no dysuria, no hematuria Musculoskeletalright thumb discomfort with movement. No muscle tenderness Skinno bruising, no rashes, no pruritus Neurono isolated weakness, no paresthesia, no weakness Psychno depression, no anxiety Physical Exam 2 Physical Exam: General-alert and oriented x3, no fever, no chills HEENT-head atraumatic and normocephalic, pupils equal and reactive to light, extraocular muscles intact Neck-no lymphadenopathy or thyromegaly, trachea midline Chest-clear to auscultation. No rales, wheezing or rhonchi Cardiac-regular rate and rhythm, normal S1 and S2 Abdomen-normal bowel sounds, no hepatosplenomegaly Extremities-no cyanosis, clubbing, or edema. Right hand is heavily bandaged with wound VAC in place Neuro-cranial nerves II through XII intact, motor and sensory function within normal limits, strength symmetrical, no focal deficits Psych-normal affect, normal mood Results & Data Results & Data Vital Signs (Past 12 Hours) Vital Signs Temp Pulse Resp BP Pulse Ox O2 Del Method 04/20/25 07:09 36.7 C 68 18 167/82 H 96 Room Air Laboratory Results 10/30/24 08:35 10/30/24 08:35 PG Care Time/CCT Total # of Minutes Spent Total Time Spent with Patient: Total time spent is greater than 50% in coordination of care (as documented) at patient's floor/unit and/or counseling patient: Coding Level of Care Code 26811 SUB INP/OBS CARE 2/35MIN Diagnoses Cellulitis L03.113 Laterality: right Site of cellulitis: extremity Site of cellulitis of extremity: upper extremity Dog bite W54.0XXA Encounter type: initial encounter Multiple myeloma, remission status unspecified C90.00 Multiple myeloma remission status: unspecified MDS (myelodysplastic syndrome) D46.9 (1) Cellulitis Laterality: right Site of cellulitis: extremity Site of cellulitis of extremity: upper extremity Qualified Code(s): L03.113 - Cellulitis of right upper limb (2) Dog bite Encounter type: initial encounter Qualified Code(s): W54.0XXA - Bitten by dog, initial encounter (3) Multiple myeloma Multiple myeloma remission status: unspecified Qualified Code(s): C90.00 - Multiple myeloma not having achieved remission
[2024-10-30 19:39] VITALS: RESP 16
[2024-10-31 06:18] LABS: BUN Creatinine Ratio 16.7 (10-20); Calcium 8.6 mg/dl (8.6-10.3); Creatinine Clr Calc Pharmacy 77.2 ml/min; Potassium 3.7 mmol/L (3.5-5.1)
[2024-10-31 06:41] LABS: Hematocrit (blood only) 26.8 % (37.0-47.0); Hemoglobin 8.6 g/dl (12.0-16.0); Mean Corpuscular Hemoglobin 29.4 pg (25.0-34.0); Mean Corpuscular Hgb Conc 32.1 g/dL (32.0-36.0); Mean Corpuscular Volume 91.5 fL (80.0-100.0); Mean Platelet Volume 13.3 fL (9.4-12.4); Platelet Count 318 K/uL (130-400); RDW Coefficient of Variation 16.7 % (11.5-14.5); RDW Standard Deviation 51.1 fL (36.4-46.3); Red Blood Count 2.93 M/uL (4.20-5.40)
[2024-10-31 07:15] LABS: White Blood Count 4.19 K/ul (4.8-10.8)
[2024-10-31 07:16] LABS: ANC (manual) 1.72 K/uL (1.4-6.5); Basophils # (manual) 0.54 K/uL (0-0.2); Basophils % (manual) 13 %; Blast # (manual) 0.08 K/uL (0-0); Blast Cells % (manual) 2 %; Eosinophils # (manual) 0.04 K/uL (0-0.50); Eosinophils % (manual) 1 %; Giant Platelets 1+; Lymphocytes % (manual) 43 %; Neutrophils # (manual) 1.72 K/uL (1.40-6.50); Neutrophils % (manual) 41 %
--- NOTE | 2024-10-31 07:40 | Pharmacy Report ---
Pharmacy PK ABX Note - Date of Service October 31, 2024 - Assessment and Plan Assessment 10/31: * Day #7 of vancomycin and ampicillin/sulbactam. * Many organisms, including anaerobes, growing in hand culture. Staph species in hand culture is oxacillin sensitive so per ID recs, okay to discontinue vancomycin. Will reach out to the provider today. * Random vancomycin level today was therapeutic. 10/28: * Vancomycin level drawn today was 14mcg/mL which extrapolates to an AUC/JAMIL within the goal range. Patient is to continue on Vancomycin 1gm iv q 8 hours. 10/27: * I&D of right hand/thumb done 10/25--cultures were polymicrobial consisting of Staph pseudointermedius, Pasteurella canis/oralis, Strep canis, Strep minor, Actinomyces canis, and peptostreptococcus. * Per ID, duration of abx expected to be at least 3 weeks given possible tendon involvement--To continue vancomycin + Unasyn while admitted and will likely discharge with doxycycline + Augmentin. * Renal function has been stable and patient afebrile. 10/25: 78 year old F receiving IV Vancomycin + Unasyn for treatment of hand cellulitis with purulent discharge d/t dog bite. Cultures pending. WBC wnl, afebrile. Immunocompromised. Day # 4 of antimicrobial therapy. Plan Vancomycin * Current regimen: 1000 mg IV every 8 hours * Random level obtained 10/31/24 resulted as 14.5 mcg/mL. This is predicted to achieve target AUC/JAMIL of 400-600 mg/L.hr * Predicted AUC at steady state: 512 mg/L.hr * Continue 1000 mg IV every 8 hours * Will repeat level in the next 48-72 hours if therapy is continued and/or change in patient clinical status Unasyn * 3000 mg IV every 6 hours Pharmacy will continue to follow and will adjust dose/frequency as necessary. Thank you. Pharmacy has transitioned to AUC monitoring for vancomycin. AUC/JAMIL is the preferred PK/PD target and is associated with decreased risk of nephrotoxicity compared to traditional trough targets.
--- NOTE | 2024-10-31 08:48 | Hospitalist Progress Note ---
Date of Service October 31, 2024 Assessment & Plan (1) Cellulitis: (2) Dog bite: (3) Multiple myeloma: (4) MDS (myelodysplastic syndrome): Plan 78-year-old female PMHx MDS, MM, HTN, and anemia presenting for a R thumb wound. Dog bite occurred 10/20/2024, no antibiotics were started outpatient. ED evaluation reveals WBC 7.18, H&H 10.1/28.3, platelets 654, currently 6 0, ESR 25; CMP creatinine 0.54, ratio 29.6, glucose 167, AST 28, ALT 58; CRP 6.91; procalcitonin 0.17; hand CT soft tissue laceration seen near base of thumb with subcutaneous edema extending distally throughout the thumb and proximally to the level of the wrist without significant extension into the forearm, no abscess, no underlying bony abnormality; blood cultures pending.; Provided with 1L NSS, Unasyn 3 g IV, and acetaminophen 1 g IV in ED. Initial injury w/ dog bite on 10/20 but did not seek treatment until seen by CCP for chemo Tetatnus shot provided given >5yrs per discussion w/ orthopedic PA #Cellulitis/Dog Bite , R Hand/Thumb CT noting laceration near base thumb on R, subcu edema distally throughout thumb proximal to level of wrist. No abscess or underlying bony abn Ortho, ID consulted Initially s/p Right Thumb I&D Dr Krishnamurthy on 10/25. Per OP report, noted devitalized, necrotic soft tissue surrounding the EPL & EPB tendons which was dissected and irrigated and following had healthy viable tissue. Attempt enter 1st MCP joint w/o fluid for aspiration REPEAT I&D w/ wound vac placement on 10/[address] Krishnamurthy and to remain inpatient through thursday w/ plans for wound vac change today Vanco, Unasyn IV continued initially for broad coverage. Cxs Staph pseudointermedius, Pasteurella canis/oralis, Strep canis, Strep minor, Actinomyces canis. DC'd Vancomycin and remains on Unasyn IV while inpatient. Blood cx NGTD Discussed w ID for abx at pr: would plan for AUGMENTIN BID x THREE week course. Staph species sensitive to Oxacillin, no need for Doxy. Hopeful dc today after wound vac changed if stable w/ outpatient ortho, wound, ID follow up #MM/MDS MM diagnosed 09/2023, MDS 09/26/2024 - on a 28-day course w 5 days on chemo, 3 wks off. Follow[address] with Dr Lewis, was due for chemo on presentation (to be rescheduled, onc to arrange) Pt reports transfusions ~3 wks w/ 2u PRBC (last done October 17) Oncology on consult and discussed s/p 1u PRBC on 10/26 for hgb 7.7 - suspected anemia from MDS/chemotherapy but also dilutional from IVF ordered for OR. Antibodies from [place] and [facility] type/cross additional unit but Hgb >8 and no need at this time Continue Acyclovir for proph Outpt f/u oncology at dc #HTN BP controlled and remains on lisinopril 10mg daily, BP 153/79 DVT proph: SCDs ordered, Lovenox SQ Dispo: hopeful dc later today on PO abx Admission and Anticipated Discharge Date Admission Date: October 24, 2024 Results & Data Results & Data Vital Signs (Past 12 Hours) Vital Signs Temp Pulse Resp BP Pulse Ox O2 Del Method 10/31/24 07:49 36.7 C 67 16 153/79 H 97 Room Air PG Care Time/CCT Total # of Minutes Spent Total Time Spent with Patient: Total time spent is greater than 50% in coordination of care (as documented) at patient's floor/unit and/or counseling patient: Coding Diagnoses Cellulitis L03.113 Laterality: right Site of cellulitis: extremity Site of cellulitis of extremity: upper extremity Dog bite W54.0XXA Encounter type: initial encounter Multiple myeloma, remission status unspecified C90.00 Multiple myeloma remission status: unspecified MDS (myelodysplastic syndrome) D46.9 (1) Cellulitis Laterality: right Site of cellulitis: extremity Site of cellulitis of extremity: upper extremity Qualified Code(s): L03.113 - Cellulitis of right upper limb (2) Dog bite Encounter type: initial encounter Qualified Code(s): W54.0XXA - Bitten by dog, initial encounter (3) Multiple myeloma Multiple myeloma remission status: unspecified Qualified Code(s): C90.00 - Multiple myeloma not having achieved remission
--- NOTE | 2024-10-31 11:28 | Discharge Summary ---
Discharge Summary Date of Service October 31, 2024 Principal Dx & Hospital Course #1 = Principal Diagnosis (1) Cellulitis: (2) Dog bite: (3) Multiple myeloma: (4) MDS (myelodysplastic syndrome): Plan #Cellulitis/Dog Bite , R Hand/Thumb 78-year-old female PMHx MDS, MM, anemia, HTN presented with RIGHT thumb/hand wound following dog bite on 10/20 without abx and sent to ER at [facility] for eval/treatment when seen for her chemotherapy. On admission, WBC 7k, hgb 10, plt 654 with elevated ESR [address] noting soft tissue laceration seen near base of thumb with subcutaneous edema extending distally throughout the thumb and proximally to the level of the wrist without significant extension into the forearm, no abscess, no underlying bony abnormality Provided 1L NS, Unasyn IV and APAP on admission Orthopedics consulted, Dr Krishnamurthy. Tetanus booster provided as had been >5yrs Cx obtained following peroxide soaks initially 10/25 and was taken to OR with Dr Krishnamurthy for I&D on 10/25 which noted devitalized, necrotic soft tissue surrounding the EPL & EPB tendons which was dissected and irrigated and following had healthy viable tissue. Attempt enter 1st MCP joint w/o fluid for aspiration however on repeat evaluation 10/27 had purulence from wound and was made NPO at midnight for repeat I&D and wound vac placement with Dr Krishnamurthy on 10/28. ID was consulted and cultures obtained w/ OR and grew the following: Staph pseudointermedius, Pasteurella canis/oralis, Strep canis, Strep minor, Actinomyces canis (prior to dc w/ bacteroides pyogenes x 2) Was continued on Unasyn/Vancomycin while inpatient, vanco stopped given staph sensitive to Oxacillin and discussed w/ ID and ortho prior to dc and to continue AUGMENTIN BID x 3 weeks at dc (started 10/29) and can extend another 1-3 weeks longer after end of therapy if ongoing c/f infection for treatment of actinomyces. Blood cultures no growth to date x 5 days (has port for MDS below, no issues on exam while inpatient) Rx for wound vac provided to CM and [facility] care to continue at [facility], orthopedics and ID follow up to be arranged. Discussed any increased redness/drainage/fevers to return to ER. #MM/MDS MM diagnosed 09/2023, MDS 09/26/2024 - on a 28-day course w 5 days on chemo, 3 wks off. Follows with Dr Lewis, was due for chemo on presentation (to be rescheduled, onc to arrange as discussed) Patient reports getting transfusions ~q3 wks for about 2 units (last outpatient on October 17). Discussed w/ Dr Lewis and rec for transfuse if <8. Hgb did drop to 7.7 post-op on 10/26 however not symptomatic from such and do suspect some of the acute blood loss anemia actually dilutional from IVF while NPO for OR however does have anemia 2nd to her MM and MDS/chemo as well. Note did have to wait for PRBC from [place] as has antibodies Hgb 8.6 and stable prior to [facility], message sent to her primary oncologist to repeat labs as desired for upcoming Thursday and reschedule follow up. Remains on Acyclovir for GI proph #HTN BP controlled and remained on lisinopril 10mg daily DVT proph: SCDs, Lovenox SQ was utilized while inpatient Notes For Next Care Provider Monitor for need to extend Augmentin for another 1-3 weeks pending exam in follow up for treatment of actinomyces per ID consult. Blood cultures negative x 5 days Ensure ID follow up undertaken (CM sending referral at [facility]) Continued wound care/wound vac at discharge and orthopedics follow up Monitor for diarrhea on abx Medication Changes From Visit Augmentin 875mg BID x 3 wks Oxycodone 5mg if needed for breakthrough pain Admission HPI Per Admitting Provider 78-year-old female PMHx MDS, MM, HTN, and anemia presenting for a R thumb wound. Patient states that on 10/20/2024, she was playing with her pet dog (show dog) when she went to throw the toy and the dog struck her hand. Patient states that time she was still playing with the dog, and decided not to seek medical attention and just iced the area. 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 States that she went to her oncology appointment to have chemotherapy on the day of arrival, but her provider noted that she should come to the ED given the appearance of the wound. Patient states that she is having tenderness to the area and some numbness in her thumb, but is still able to have normal passive ROM with some pain in doing so. States that the dog is up-to-date on all vaccines and she is up-to-date on her tetanus shot. Patient denies systemic symptoms to include F/C, no streaking, and no loss of ROM. Overall denying chest pain, shortness breath, palpitations, abdominal pain, N/V/D/C, additional numbness/tingling, URI symptoms, or LUTS. Patient states that she was due to start her 5-day course of chemotherapy on the day of arrival but was not started on this given that she instead came to the ED. States she is on a 28-day schedule with 5 days chemotherapy then 3 weeks off. She is due for chemotherapy starting the day of admission (10/24/2024). ED evaluation reveals WBC 7.18, H&H 10.1/28.3, platelets 654, currently 6 0, ESR 25; CMP creatinine 0.54, ratio 29.6, glucose 167, AST 28, ALT 58; CRP 6.91; procalcitonin 0.17; hand CT soft tissue laceration seen near base of thumb with subcutaneous edema extending distally throughout the thumb and proximally to the level of the wrist without significant extension into the forearm, no abscess, no underlying bony abnormality; blood cultures pending.; Provided with 1L NSS, Unasyn 3 g IV, and acetaminophen 1 g IV in ED. Please see Dr. Vuong's attestation for adjustments/additions to treatment plan. Admission Exam Per Admitting Provider General: No acute distress Skin: Warm and dry; port present and covered in dressing L chest, not erythemat ous or edematous; right thumb erythematous and edematous extending to wrist, discharge from site, odor present (see image) Head: Normocephalic, atraumatic Eyes: PERRL, conjunctivae clear, sclera non-icteric ENT: External ear and ear canal without swelling; nose atraumatic; good dentition, tongue normal appearance, pharynx normal Neck: Supple, no LAD Cardio: RRR, no M/G/R, S1 and S2 normal Resp: No respiratory distress, Lungs CTA in all lobes bilaterally, no wheezes, rales, or rhonchi Abdomen: Soft, symmetric, nontender; No masses or hepatosplenomegaly; Bowel sounds normoactive MSK: No deformities; pulses palpable and equal; no edema. Neuro: Awake, alert; Sensation intact bilaterally; CN grossly intact; pulses palpable and strong radial Psych: Appropriate mood and affect; good judgement and insight. Discharge Exam General: 78yo female sitting up in bed, NAD, much improved, ready to go home, wound vac changed this morning HEENT: head atraumatic, port to L chest, covered, dressing c/d/i without erythema or evidence for infection Resp: even/unlabored, no wheezing/rales, on room air CV: RRR, no significant m/r/g, no pitting edema GI; +BS, soft/NT no zheng MSK/Neuro: wound vac to RIGHT hand/thumb, functioning, significant improvement in edema/erythema, fingers mobile, sensation intact,pulses present, no streaking up forearm Psych: AOx3, cooperative with exam Discharge Plan Discharge Items Patient Disposition: Home - Self-Care Reason For Visit: WOUND, CELLULITIS Discharge Diagnosis: Dog Bite, Cellulitis Condition on Discharge: Good Goals: You have been hospitalized for an urgent problem which required surgery. During your stay at [facility], we have made an effort to correct the problem that brought you to the hospital while keeping you as comfortable as possible. Surgery and medications were used to bring your condition under control and your discharge instructions will include directions for any medications you should take after leaving the hospital. Please make sure to follow the advice of your surgeon regarding follow up with the surgeon and with your primary care provider. Activity: As commented below Activity Comment: ice/elevation and continue gentle finger range of motion Non-emergency contact: Primary Care Provider and Surgeon Call non-emergency contact if: you have any medication questions, your symptoms worsen, your pain is not controlled, your pain is worsening, your pain is unusual for you, your pain is concerning for you and you have a fever Follow-up/Referrals: Nadir Perez III, CRNP [Primary Care Provider] - 11/07/24 4:00 pm Eliana Rees DO, FACEP [Physician] - 11/09/24 10:10 am Chas Steve MD [Staff Physician] - (Dr. Steve's Office should be calling you with an Infectious Disease appointment. If you do not hear from them by November 02, please call to obtain appointment. Thank you!) Yeimy Flor PA-C [Physician Beekeeper] - 11/02/24 9:00 am Diet: Regular Addtl Attending Provider Instructions: You have been hospitalized for infection to your right hand/thumb following dog bite. Imaging was obtained and orthopedic surgery was consulted (Dr Krishnamurthy) and you were taken to the OR for incision and debridement and cultures were obtained and discussed with infectious disease for ongoing antibiotic therapy guidance. Keep wound vac on and follow up with wound care as scheduled. You can do gentle range of motion with the finger. No heavy lifting. Blood cultures remain negative and cultures were reviewed and decision to discharge on Augmentin 875mg twice daily for THREE weeks. Please take probiotic while on antibiotic and monitor for any significant/increased diarrhea and notify primary care if this occurs as can cause cdiff but these are needed to treat the current infection. We have sent oxycodone to use as needed for pain. Please note pain medications can make you constipated and recommend over the counter miralax/colace/senna if this occurs. You can take tylenol 1000mg every 8 hours for the next couple of days as well for baseline control. We have sent small course of oxycodone if needed for pain with dressing changes. You will have continued wound vac and wound care follow up at discharge. Do not submerge hand in water/fluids at this time to prevent introduction of new bacteria or worsened infection. As discussed, if any symptoms/swelling/fever/redness occur, please return to the ER. I discussed with Dr Lewis and you will have repeat labs for thursday and can continue with transfusions if needed pending repeat values but she will reschedule your chemo once your current infection is treated. Please follow up with primary care, orthopedics and oncology at discharge as discussed. Continue elevation and pain control and return to the ER with any increased pain/redness or swelling, fever/chills, chest pain, shortness of breath or for any other symptoms concerning for you. It has been a pleasure being a part of the medical team providing for you while you have been in the hospital. Take care! Pending Studies at Discharge: Yes Studies:: OR culture staph pesudointermedius, streptococcus canis, Pasteurella canis, actinomyces canis , Bacteroides pyogenes Stand-Alone Forms: [facility] [employer], Pain - Opioid Pain Management, Smoking Cessation Medications and DC Order Prescriptions: New amoxicillin-pot clavulanate 875-125 mg tablet 1 tab PO BID Qty: 46 0RF oxycodone 5 mg Tablet 5 mg PO Q4H PRN (Reason: pain) Qty: 20 0RF Continued acyclovir 400 mg tablet 400 mg PO BID ascorbic acid (vitamin C) [Vitamin C] 500 mg Tablet 500 mg PO DAILY Centrum Silver Women 8 mg iron-400 mcg-50 mcg Tablet 1 tab PO DAILY Caltrate 600 plus D 600 mg-20 mcg (800 unit) Tablet,Chewable 1 tab PO DAILY cyanocobalamin (vitamin B-12) [Vitamin B-12] 1,000 mcg Tablet 1,000 mcg PO DAILY prochlorperazine maleate 10 mg tablet 10 mg PO Q6H PRN (Reason: Nausea And Vomiting) aspirin 81 mg Tablet,Delayed Release (Dr/Ec) 81 mg PO DAILY ondansetron 8 mg tablet,disintegrating 8 mg PO Q8H PRN (Reason: Nausea And Vomiting) vitamin E 268 mg (400 unit) Capsule 268 mg PO DAILY vitamin A-vitamin C-vit E-min Tablet 1 tab PO DAILY omega 6-gyb-mai-fish oil [Fish Oil] 1,000 mg (120 mg-180 mg) Capsule 1 cap PO DAILY mometasone 50 mcg/actuation spray,non-aerosol 2 spray INTNAS DAILY PRN (Reason: Congestion) lisinopril 10 mg tablet 10 mg PO QAM lidocaine-prilocaine 2.5-2.5 % cream 1 applic topical UD Rx Instructions: apply 1 application at least 1 hour prior to procedure Discharge Orders: Discharge Order (Routine); Ordered 10/31/24 Ordered By: Tammi De La Cruz/Other Patient Handouts: ED Animal Bite (General) Admission Data Admit Date/Time: 10/24/24 19:22 Attending Provider: Anita Addison Admit Provider: Klarissa Vuong Primary Care Provider: Nadir Perez III Other Providers: Klarissa Vuong; Yasmine Saleh; Mara Gandhi; Saritha Ling; Tali Quinonez; Lachelle Laura; Brigitte Power; Jennifer Lewis; Sea Krishnamurthy; [facility] F[facility] Other Interventions: Discharge Summary Assessment (RN) Last Done: 10/31/24 16:31 Hospital Stay Data Consultations 10/24/24 19:20 ED Decision to Admit Stat 10/24/24 20:57 Consult Infectious Diseases Routine Consult Oncology Routine Consult Orthopedic Surgery Routine Procedures Performed Operation Date: 10/28/24 08:20 Actual Procedures p Right Thumb Irrigation and Debridement and Wound Vac Placement(Right) - Sea Krishnamurthy MD Diagnostic Imagining Performed Hand CT 10/24/24 16:30 CT right hand with and without contrast History: Dog bite Comparison: None Technique: CT performed of the right hand with and without IV contrast. Dose reduction techniques were achieved by using automatic exposure control and/or adjustment of mA and/or kV according to patient size and/or use of iterative reconstruction technique. Findings: No fracture or dislocation. Joint spaces are normally aligned. There is severe osteoarthritis at the first carpometacarpal joint. A soft tissue laceration is seen near the base of the thumb, where there is an area of subcutaneous free fluid, without focal fluid collection. Edema extends along the length of the thumb distally, and proximally to approximately the level of the wrist, without significant extension into the forearm. No visualized abscesses. No aggressive osseous lesion. Impression: Soft tissue laceration seen near the base of the thumb, with subcutaneous edema extending distally throughout the thumb, and proximally to the level of the wrist without significant extension into the forearm. No abscess. No underlying bony abnormality. Osteoarthritis. Electronically signed by Nick Hoang 10-24-2024 5:23 PM Pending Results Patient Have Any Pending Studies at Discharge: Yes Discharge Instructions Given to Patient (Per Discharging Provider) You have been hospitalized for infection to your right hand/thumb following dog bite. Imaging was obtained and orthopedic surgery was consulted (Dr Krishnamurthy) and you were taken to the OR for incision and debridement and cultures were obtained and discussed with infectious disease for ongoing antibiotic therapy guidance. Keep wound vac on and follow up with wound care as scheduled. You can do gentle range of motion with the finger. No heavy lifting. Blood cultures remain negative and cultures were reviewed and decision to discharge on Augmentin 875mg twice daily for THREE weeks. Please take probiotic while on antibiotic and monitor for any significant/increased diarrhea and notify primary care if this occurs as can cause cdiff but these are needed to treat the current infection. We have sent oxycodone to use as needed for pain. Please note pain medications can make you constipated and recommend over the counter miralax/colace/senna if this occurs. You can take tylenol 1000mg every 8 hours for the next couple of days as well for baseline control. We have sent small course of oxycodone if needed for pain with dressing changes. You will have continued wound vac and wound care follow up at discharge. Do not submerge hand in water/fluids at this time to prevent introduction of new bacteria or worsened infection. As discussed, if any symptoms/swelling/fever/redness occur, please return to the ER. I discussed with Dr Lewis and you will have repeat labs for thursday and can continue with transfusions if needed pending repeat values but she will reschedule your chemo once your current infection is treated. Please follow up with primary care, orthopedics and oncology at discharge as discussed. Continue elevation and pain control and return to the ER with any increased pain/redness or swelling, fever/chills, chest pain, shortness of breath or for any other symptoms concerning for you. It has been a pleasure being a part of the medical team providing for you while you have been in the hospital. Take care! Supervising Physician Co-Signing Physician Notes PA Supervision Note: I did not personally see or examine the patient today, but I verified all munguia points of YULY Winchester's assessment and plan with the following exceptions/additions: None Total Time Total Time Spent Total Time Spent (In Minutes): 60 Coding Level of Care Code 09251 INP/OBS DISCH >30 MIN Diagnoses Cellulitis L03.113 Laterality: right Site of cellulitis: extremity Site of cellulitis of extremity: upper extremity Dog bite W54.0XXA Encounter type: initial encounter Multiple myeloma, remission status unspecified C90.00 Multiple myeloma remission status: unspecified MDS (myelodysplastic syndrome) D46.9
--- NOTE | 2024-10-31 12:10 | Infectious Disease Progress Nt ---
Date of Service October 31, 2024 Assessment & Plan (1) Cellulitis: (2) Dog bite: (3) Multiple myeloma: (4) MDS (myelodysplastic syndrome): Plan 78yo F with h/o MDS/MM on chemo (per chart, she is on monthly daralex, last dose 10/12, was planned for decitabine 10/24), chest port, right breast cancer 1997 s/p lumpectomy and chemo/XRT, HTN, and anemia who presented on 10/24 with a right thumb swelling, redness, drainage. On 10/20 she was playing with her dog when the dog accidentally bit her hand. She was seen at oncology appointment for chemo, but sent her to the ED. Dog is up-to-date on vaccines, patient has had her tetanus shot in 2015. On admission, she was afebrile, vss. Initial labs with WBC 7.18, Cr 0.54, ALT 58. Lactate 1.2. ESR 25, CRP 6.91. PCT 0.17. CT hand with soft tissue laceration seen near the base of the thumb, with subcu edema extending distally throughout the thumb, and proximally to the level of the wrist without significant extension into the forearm; no abscess; no underlying bony abnormality. She has received unasyn. S/p TdAP. ID consulted 10/25. Vanc added due to purulence and immunocompromised state. S/p OR 10/25 for I&D (per op note, necrotic soft tissue surrounding the EPL & EPB tendons, non-viable skin, soft tissue down to the 1st MCP joint was removed, after debridement, 1st MCP joint aspiration attempted but no fluid). OR cx polymicrobial consisting of Staph pseudointermedius (ox-S), Pateurella canis/oralis, Strep canis, Strep minor, Actinomyces canis, Peptostreptococcus. S/p I&D on 10/28 and 10/29. Op note states necrotic tissue surrounding the tendons. Per Dr. Krishnamurthy, tendons were exposed. Will therefore need at least 3 weeks of antibiotics given possible tendon involvement. She does also have Actinomyces which generally may involve longer treatment (e.g., 2-6wks or longer) in the setting of a polymicrobial, nonclassic presentation (ie subcutaneous infection that has undergone debridement). Will plan for the 3 weeks for now and consider extension depending on clinical improvement vs ongoing infection. Micro: 10/24 BCX: ngtd 10/25 MRSA screen: neg 10/25 WCx: Staph pseudointermedius (ox-s), Pateurella canis/oralis, Strep canis, Strep minor, Actinomyces canis, Peptostreptococcus canis, Bacteroides pyogenes # Right hand cellulitis and wound in setting of dog bite s/p I&D 10/25, 10/28, 10/29 cx polymicrobial # MDS/MM on chemo # Chest port - Tammi stopped vancomycin - continue Unasyn 3g IV q6h - on discharge, can change abx to augmentin 875mg PO bid x 3 weeks (starting from 10/29, 3wks on 11/18) may extend an additional 1-3 weeks or longer after end of therapy if ongoing c/f infection (for treatment of Actinomyces) - she should have local ID follow up - ppx: on acyclovir Will discontinue active follow up at this time. Please do not hesitate to reconsult the Infectious Diseases service as needed. Saritha Ling MD [facility], Division of Infectious Diseases IDConnect: [phone] Admission and Anticipated Discharge Date Admission Date: October 24, 2024 Subjective This patient recommendation is based on a telemedicine consult request which was completed asynchronously through chart review and information provided by the primary physician. The patient was not seen or examined today. The evaluation is consultative in nature and all patient care and treatment decisions can either be accepted or rejected by the patient's primary hospital-based treating physician using their own independent medical judgment for their patient. Time Spent Reviewing Chart: 31+ minutes Afebrile. Results & Data Vital Signs (Past 12 Hours) Vital Signs Temp Pulse Resp BP Pulse Ox O2 Del Method 10/31/24 07:49 36.7 C 67 16 153/79 H 97 Room Air Laboratory Results Labs reviewed. Diagnostic Findings Imaging reviewed. (1) Cellulitis Laterality: right Site of cellulitis: extremity Site of cellulitis of extremity: upper extremity Qualified Code(s): L03.113 - Cellulitis of right upper limb (2) Dog bite Encounter type: initial encounter Qualified Code(s): W54.0XXA - Bitten by dog, initial encounter (3) Multiple myeloma Multiple myeloma remission status: unspecified Qualified Code(s): C90.00 - Multiple myeloma not having achieved remission
[2024-10-31 15:32] VITALS: BP 169/78; PULSE 78; TEMP 98.6; O2SAT 94
--- NOTE | 2024-10-31 19:46 | Orthopedic Progress Note ---
Date of Service October 31, 2024 Assessment & Plan (1) Dog bite of right hand including fingers with infection: Plan: POD #2 s/p R thumb I&D, wound Vac placement & POD #5 s/p R Thumb I&D Resume diet Continue pain control Continue Antibiotics per ID. Consult Wound Care Nurse for Wound Vac was changed 10/31/24 & to be changed M/W/F Ok for d/c from Ortho stand point if able to set up outpatient wound vac changes, home wound vac unit and Abx Follow-up in Dr. Krishnamurthy's office next week prior to Wound Clinic appt to be able evaluate the wound Continue care per Hospitalist service Admission and Anticipated Discharge Date Admission Date: October 24, 2024 Subjective No complaints Physical Exam Physical Exam: RUE: BCR < 2 sec. Sensation to Light touch intact. Able to flex and extend digits. Decreased redness and swelling.Wound looks good without drainage. Exposed soft tissue and tendons look healthy, no evidence of infection. Sutures remain in place. distal aspect of the thumb skin is macerated. Results & Data Vital Signs (Past 12 Hours) Vital Signs Temp Pulse Resp BP Pulse Ox O2 Del Method 10/31/24 15:31 37.0 C 78 16 169/78 H 94 Room Air 10/31/24 07:49 36.7 C 67 16 153/79 H 97 Room Air Laboratory Results 10/31/24 Range/Units 05:39 WBC 4.19 L (4.8-10.8) K/ul RBC 2.93 L (4.20-5.40) M/uL Hgb 8.6 L (12.0-16.0) g/dl Hct 26.8 L (37.0-47.0) % MCV 91.5 (80.0-100.0) fL MCH 29.4 (25.0-34.0) pg MCHC 32.1 (32.0-36.0) g/dL RDW Std Deviation 51.1 H (36.4-46.3) fL RDW Coeff of Juan 16.7 H (11.5-14.5) % Plt Count 318 (130-400) K/uL MPV 13.3 H (9.4-12.4) fL Neutrophils % (Manual) 41 % Lymphocytes % (Manual) 43 % Eosinophils % (Manual) 1 % Basophils % (Manual) 13 % Blast Cells % (Manual) 2 % Neutrophils # (Manual) 1.72 (1.40-6.50) K/uL Total Absolute Neuts 1.72 (1.4-6.5) K/uL Lymphocytes # (Manual) 1.80 (1.2-3.4) K/uL Total Abs Lymphocytes 1.80 (1.2-3.4) K/uL Eosinophils # (Manual) 0.04 (0-0.50) K/uL Basophils # (Manual) 0.54 H (0-0.2) K/uL Blast Cells # (Man) 0.08 H (0-0) K/uL Giant Platelets 1+ Sodium 139 (136-145) mmol/L Potassium 3.7 (3.5-5.1) mmol/L Chloride 103 (98-107) mmol/L Carbon Dioxide 33 H (21-32) mmol/L Anion Gap 3 (3-11) BUN 8 (6-23) mg/dl Creatinine 0.48 L (0.6-1.2) mg/dl Est Cr Clr Drug Dosing 77.2 ml/min eGFR 96.29 BUN/Creatinine Ratio 16.7 (10-20) Glucose 107 H (70-99(Fasting)) mg/dl Calcium 8.6 (8.6-10.3) mg/dl Random Vancomycin 14.5 (10-20) mcg/ml (1) Dog bite of right hand including fingers with infection Encounter type: initial encounter Qualified Code(s): S61.451A - Open bite of right hand, initial encounter; S61.259A - Open bite of unspecified finger without damage to nail, initial encounter; L08.9 - Local infection of the skin and subcutaneous tissue, unspecified; W54.0XXA - Bitten by dog, initial encounter
[2024-11-01 08:02] LABS: Hypogranular Neutrophils 2+
== END 2024-10-31 18:23 | disposition home health service (06) | DRG 580 ==
LOC: ED 15:01 → SUATTDRO 19:22 → 3N 19:22